=== PATIENT | female | born 1955 | race Caucasian/White ===

== ENCOUNTER 2020-10-18 06:15 | Inpatient (IN) | payer MEDICARE ==
[2020-10-18] MEDS ORDERED: SODIUM CHLORIDE 0.9% 1,000 ML IV STA (06:33)
--- NOTE | 2020-10-18 06:44 | ED ---
General Adult HPI - General Source: patient, EMS, RN notes reviewed Mode of arrival: EMS Limitations: no limitations <Luther Benito - Last Filed: 10/18/20 08:50> <Radha Barbosa - Last Filed: 10/20/20 23:19> - General Chief complaint: Extremity Problem,Nontraumatic Stated complaint: MS exacerbation Time Seen by Provider: 10/18/20 06:17 - History of Present Illness Initial comments: 65-year-old female with a past medical history of migraines, multiple sclerosis, edema of lower legs, hypertension, presents to the emergency room for a chief complaint of weakness. Patient reports that she has had weakness in her lower extremities for 2 days now. States that she can no longer walk. She states this feels like an MS exacerbation. Patient reports that her neurologist tells her to wait 2 days to see if symptoms get better before presenting to the hospital. States that this time they were not so she decided to come in. Patient states she called her primary care provider Dr. Johns who said he would start her on steroids and wanted her to be admitted to the hospital. Patient does get injections Wednesdays and Fridays. Patient has no other complaints at this time including shortness of breath, chest pain, abdominal pain, nausea or vomiting, headache, or visual changes. (Luther Benito) - Related Data Home Medications Medication Instructions Recorded Confirmed Acetaminophen [Tylenol] 650 mg PO Q6H PRN 08/24/15 10/18/20 Amitriptyline HCl [Elavil] 25 mg PO HS 08/24/15 10/18/20 Anastrozole [Arimidex] 1 mg PO DAILY 08/24/15 10/18/20 Baclofen 10 mg PO BID PRN 08/24/15 10/18/20 Calcium Carbonate [Calcium] 600 mg PO DAILY 08/24/15 10/18/20 Cholecalciferol [Vitamin D3 (25 3,000 unit PO DAILY 08/24/15 10/18/20 Mcg = 1000 Iu)] Multivitamins, Thera [Multivitamin 1 tab PO DAILY 08/24/15 10/18/20 (formulary)] Niacin 500 mg PO HS 08/24/15 10/18/20 Atenolol [Tenormin] 100 mg PO BID 10/18/20 10/18/20 Docusate [Colace] 100 mg PO DAILY PRN 10/18/20 10/18/20 Fesoterodine Fumarate [Toviaz] 8 mg PO DAILY 10/18/20 10/18/20 HYDROcodone/APAP 5-325MG [Secor 1 tab PO BID PRN 10/18/20 10/18/20 5-325] Meloxicam [Mobic] 7.5 mg PO DAILY 10/18/20 10/18/20 Potassium Gluconate 99 mg PO DAILY 10/18/20 10/18/20 Rebif 44 Mcg/0.5 Ml 1 dose INJ MOWEFR 10/18/20 10/18/20 Spironolactone [Aldactone] 50 mg PO DAILY 10/18/20 10/18/20 Alendronate Sodium [Fosamax] 70 mg PO WEEKLY 10/20/20 10/20/20 Losartan Potassium [Cozaar] 100 mg PO DAILY 10/20/20 10/20/20 Previous Rx's Medication Instructions Recorded Pregabalin [Lyrica] 50 mg PO BID #60 cap 08/31/15 Allergies Allergy/AdvReac Type Severity Reaction Status Date / Time No Known Allergies Allergy Verified 10/18/20 09:32 Review of Systems ROS Other: All systems not noted in ROS Statement are negative. <Luther Benito P - Last Filed: 10/18/20 08:50> ROS Other: All systems not noted in ROS Statement are negative. <Radha Barbosa - Last Filed: 10/20/20 23:19> ROS Statement: Those systems with pertinent positive or pertinent negative responses have been documented in the HPI. Past Medical History Past Medical History: Cancer, Hypertension, Musculoskeletal Disorder Additional Past Medical History / Comment(s): hx migraines, MS, edema lower legs and feet, walker- currently using wheelchair, brace on left arm, bladder urgency-wears briefs, hx breast cancer History of Any Multi-Drug Resistant Organisms: None Reported Past Surgical History: Appendectomy, Breast Surgery Additional Past Surgical History / Comment(s): 6 surgeries for breast cancer(rt lumpectomy/mastectomy/reconstructive), shiraz cataracts, Past Anesthesia/Blood Transfusion Reactions: Motion Sickness Past Psychological History: No Psychological Hx Reported Smoking Status: Never smoker Past Alcohol Use History: None Reported Past Drug Use History: None Reported - Past Family History Father Family Medical History: Cancer Sister(s) Family Medical History: Deep Vein Thrombosis (DVT) <Luther Benito - Last Filed: 10/18/20 08:50> General Exam Limitations: no limitations General appearance: alert, in no apparent distress Head exam: Present: atraumatic, normocephalic, normal inspection Eye exam: Present: normal appearance, PERRL, EOMI. Absent: scleral icterus, conjunctival injection, periorbital swelling ENT exam: Present: normal exam, mucous membranes moist Neck exam: Present: normal inspection, full ROM. Absent: tenderness, meningis mus, lymphadenopathy Respiratory exam: Present: normal lung sounds bilaterally. Absent: respiratory distress, wheezes, rales, rhonchi, stridor Cardiovascular Exam: Present: regular rate, normal rhythm, normal heart sounds. Absent: systolic murmur, diastolic murmur, rubs, gallop, clicks GI/Abdominal exam: Present: soft, normal bowel sounds. Absent: distended, tenderness, guarding, rebound, rigid <Luther Benito - Last Filed: 10/18/20 08:50> - General Exam Comments Initial Comments: Bilateral lower extremity: Patient able to move toes and slightly flexed knees. Sensation intact. Capillary refill less than 2 seconds, DP pulse 2+ bilat. Patient does have mild edema on the BLE. skin exam normal. (Luther Benito) Course Vital Signs 10/18/20 10/18/20 10/18/20 06:22 07:24 08:44 Temperature 98.6 F 98.7 F Pulse Rate 65 66 64 Respiratory 20 20 18 Rate Blood Pressure 152/102 136/101 115/76 O2 Sat by Pulse 100 99 99 Oximetry Medical Decision Making - Lab Data Result diagrams: 10/18/20 07:08 10/18/20 07:08 <Luther Benito - Last Filed: 10/18/20 08:50> - Lab Data Result diagrams: 10/20/20 05:54 10/20/20 05:54 <Radha Barbosa - Last Filed: 10/20/20 23:19> - Medical Decision Making Pt presents to the emergency room by EMS for weakness of the lower extremities. Patient has a history of relapsing remitting MS. States this feels like an exacerbation 2 days. Patient will appearing. However she does have weakness of the bilateral lower extremities. Neurovascular status intact bilateral lower extremities. CBC CMP obtained. Mild dehydration however no leukocytosis, no evidence of infection. Urinalysis is negative. Covid negative. I discussed this case with Dr. Dill, neurology. Recommends 1000 mg Solu-Medrol given over 1.[address] Barbosa discussed this case with Dr. Johns, does accept admission, recommends neurology consultation. (Luther Benito) I was available for consultation in the emergency department. The history and physical exam were done by the midlevel provider. I was consulted for this patients care. I reviewed the case with the midlevel provider and based on their presentation of the patient, I agree with the assessment, medical decision making and plan of care as documented. Chart was dictated using [employer] dictation software. Attempts were made to correct any dictation errors however some typographical errors may persist. (Radha Barbosa) - Lab Data Lab Results 10/18/20 10/18/20 10/18/20 Range/Units 07:08 07:08 07:08 WBC 8.1 (3.8-10.6) k/uL RBC 4.70 (3.80-5.40) m/uL Hgb 14.7 (11.4-16.0) gm/dL Hct 44.0 (34.0-46.0) % MCV 93.7 (80.0-100.0) fL MCH 31.2 (25.0-35.0) pg MCHC 33.3 (31.0-37.0) g/dL RDW 13.5 (11.5-15.5) % Plt Count 203 (150-450) k/uL MPV 7.8 Immature Gran % (Auto) % Absolute Nucleated RBC (0.00-0.00) X 10*3/uL Neutrophils % 68 % Lymphocytes % 23 % Monocytes % 7 % Eosinophils % 1 % Basophils % 1 % Immature Gran # (0.00-0.04) X 10*3/uL Neutrophils # 5.5 (1.3-7.7) k/uL Lymphocytes # 1.8 (1.0-4.8) k/uL Monocytes # 0.6 (0-1.0) k/uL Eosinophils # 0.1 (0-0.7) k/uL Basophils # 0.1 (0-0.2) k/uL NRBC/100 WBC Diff (0.0-0.0) /100 WBCS Sodium 134 L (137-145) mmol/L Potassium 5.3 H (3.5-5.1) mmol/L Chloride 97 L (98-107) mmol/L Carbon Dioxide 24 (22-30) mmol/L Anion Gap 13 mmol/L BUN 32 H (7-17) mg/dL Creatinine 1.13 H (0.52-1.04) mg/dL Est GFR (CKD-EPI)AfAm 60 (>60 ml/min/1.73 sqM) Est GFR (CKD-EPI)NonAf 52 (>60 ml/min/1.73 sqM) BUN/Creatinine Ratio (12.00-20.00) Ratio Glucose 92 (74-99) mg/dL Estimated Ave Glu mg/dL Hemoglobin A1c (4.0-6.0) % Plasma Lactic Acid Evan (0.7-2.0) mmol/L Calcium 10.4 H (8.4-10.2) mg/dL Magnesium 1.8 (1.6-2.3) mg/dL Total Bilirubin 0.7 (0.2-1.3) mg/dL AST 26 (14-36) U/L ALT 21 (4-34) U/L Alkaline Phosphatase 87 (38-126) U/L Total Protein 8.0 (6.3-8.2) g/dL Albumin 4.9 (3.5-5.0) g/dL Globulin (1.6-3.3) g/dL Albumin/Globulin Ratio (1.60-3.17) g/dL Triglycerides (0.0-149.0) mg/dL Cholesterol (0-200) mg/dL LDL Cholesterol, Calc (0.0-131.0) mg/dL VLDL Cholesterol, Calc (5.00-40.00) mg/dL HDL Cholesterol (40.0-60.0) mg/dL Cholesterol/HDL Ratio Vitamin B12 (200.0-944.0) pg/mL Vitamin D 25-Hydroxy (30.0-100.0) ng/mL TSH (0.350-5.500) uIU/mL Urine Color Light Yellow Urine Appearance Clear (Clear) Urine pH 5.5 (5.0-8.0) Ur Specific [place] 1.007 (1.001-1.035) Urine Protein Negative (Negative) Urine Glucose (UA) Negative (Negative) Urine Ketones Negative (Negative) Urine Blood Negative (Negative) Urine Nitrite Negative (Negative) Urine Bilirubin Negative (Negative) Urine Urobilinogen <2.0 (<2.0) mg/dL Ur Leukocyte Esterase Negative (Negative) Coronavirus (PCR) (Not Detectd) 10/18/20 10/18/20 10/18/20 Range/Units 07:08 07:08 07:08 WBC (3.8-10.6) k/uL RBC (3.80-5.40) m/uL Hgb (11.4-16.0) gm/dL Hct (34.0-46.0) % MCV (80.0-100.0) fL MCH (25.0-35.0) pg MCHC (31.0-37.0) g/dL RDW (11.5-15.5) % Plt Count (150-450) k/uL MPV Immature Gran % (Auto) % Absolute Nucleated RBC (0.00-0.00) X 10*3/uL Neutrophils % % Lymphocytes % % Monocytes % % Eosinophils % % Basophils % % Immature Gran # (0.00-0.04) X 10*3/uL Neutrophils # (1.3-7.7) k/uL Lymphocytes # (1.0-4.8) k/uL Monocytes # (0-1.0) k/uL Eosinophils # (0-0.7) k/uL Basophils # (0-0.2) k/uL NRBC/100 WBC Diff (0.0-0.0) /100 WBCS Sodium (137-145) mmol/L Potassium (3.5-5.1) mmol/L Chloride (98-107) mmol/L Carbon Dioxide (22-30) mmol/L Anion Gap mmol/L BUN (7-17) mg/dL Creatinine (0.52-1.04) mg/dL Est GFR (CKD-EPI)AfAm (>60 ml/min/1.73 sqM) Est GFR (CKD-EPI)NonAf (>60 ml/min/1.73 sqM) BUN/Creatinine Ratio (12.00-20.00) Ratio Glucose (74-99) mg/dL Estimated Ave Glu mg/dL 114 Hemoglobin A1c 5.6 (4.0-6.0) % Plasma Lactic Acid Evan 1.7 (0.7-2.0) mmol/L Calcium (8.4-10.2) mg/dL Magnesium (1.6-2.3) mg/dL Total Bilirubin (0.2-1.3) mg/dL AST (14-36) U/L ALT (4-34) U/L Alkaline Phosphatase (38-126) U/L Total Protein (6.3-8.2) g/dL Albumin (3.5-5.0) g/dL Globulin (1.6-3.3) g/dL Albumin/Globulin Ratio (1.60-3.17) g/dL Triglycerides (0.0-149.0) mg/dL Cholesterol (0-200) mg/dL LDL Cholesterol, Calc (0.0-131.0) mg/dL VLDL Cholesterol, Calc (5.00-40.00) mg/dL HDL Cholesterol (40.0-60.0) mg/dL Cholesterol/HDL Ratio Vitamin B12 (200.0-944.0) pg/mL Vitamin D 25-Hydroxy (30.0-100.0) ng/mL TSH (0.350-5.500) uIU/mL Urine Color Urine Appearance (Clear) Urine pH (5.0-8.0) Ur Specific [place] (1.001-1.035) Urine Protein (Negative) Urine Glucose (UA) (Negative) Urine Ketones (Negative) Urine Blood (Negative) Urine Nitrite (Negative) Urine Bilirubin (Negative) Urine Urobilinogen (<2.0) mg/dL Ur Leukocyte Esterase (Negative) Coronavirus (PCR) Not Detected (Not Detectd) 10/18/20 10/19/20 10/19/20 Range/Units 07:08 06:04 06:04 WBC 7.46 (3.8-10.6) k/uL RBC 3.77 L (3.80-5.40) m/uL Hgb 11.5 L (11.4-16.0) gm/dL Hct 35.8 L (34.0-46.0) % MCV 95.0 (80.0-100.0) fL MCH 30.5 (25.0-35.0) pg MCHC 32.1 (31.0-37.0) g/dL RDW 13.9 (11.5-15.5) % Plt Count 158 (150-450) k/uL MPV 11.1 Immature Gran % (Auto) 0.4 % Absolute Nucleated RBC 0 (0.00-0.00) X 10*3/uL Neutrophils % 83.9 % Lymphocytes % 14.1 % Monocytes % 1.6 % Eosinophils % 0 % Basophils % 0 % Immature Gran # 0.03 (0.00-0.04) X 10*3/uL Neutrophils # 6.26 (1.3-7.7) k/uL Lymphocytes # 1.05 (1.0-4.8) k/uL Monocytes # 0.12 L (0-1.0) k/uL Eosinophils # 0 L (0-0.7) k/uL Basophils # 0 (0-0.2) k/uL NRBC/100 WBC Diff 0 (0.0-0.0) /100 WBCS Sodium 135 (137-145) mmol/L Potassium 4.2 (3.5-5.1) mmol/L Chloride 105 (98-107) mmol/L Carbon Dioxide 18.7 L (22-30) mmol/L Anion Gap 11.30 mmol/L BUN 27.0 (7-17) mg/dL Creatinine 1.0 (0.52-1.04) mg/dL Est GFR (CKD-EPI)AfAm 69.4 (>60 ml/min/1.73 sqM) Est GFR (CKD-EPI)NonAf 59.9 L (>60 ml/min/1.73 sqM) BUN/Creatinine Ratio 27.00 H (12.00-20.00) Ratio Glucose 135 H (74-99) mg/dL Estimated Ave Glu mg/dL Hemoglobin A1c (4.0-6.0) % Plasma Lactic Acid Evan (0.7-2.0) mmol/L Calcium 9.1 (8.4-10.2) mg/dL Magnesium (1.6-2.3) mg/dL Total Bilirubin 0.4 (0.2-1.3) mg/dL AST 16 (14-36) U/L ALT 18 (4-34) U/L Alkaline Phosphatase 67 (38-126) U/L Total Protein 5.8 L (6.3-8.2) g/dL Albumin 3.90 (3.5-5.0) g/dL Globulin 1.9 (1.6-3.3) g/dL Albumin/Globulin Ratio 2.05 (1.60-3.17) g/dL Triglycerides 148.0 (0.0-149.0) mg/dL Cholesterol 203 H (0-200) mg/dL LDL Cholesterol, Calc 115.4 (0.0-131.0) mg/dL VLDL Cholesterol, Calc 29.60 (5.00-40.00) mg/dL HDL Cholesterol 58.0 (40.0-60.0) mg/dL Cholesterol/HDL Ratio 3.50 Vitamin B12 945.0 H (200.0-944.0) pg/mL Vitamin D 25-Hydroxy 62.9 (30.0-100.0) ng/mL TSH 5.490 (0.350-5.500) uIU/mL Urine Color Urine Appearance (Clear) Urine pH (5.0-8.0) Ur Specific [place] (1.001-1.035) Urine Protein (Negative) Urine Glucose (UA) (Negative) Urine Ketones (Negative) Urine Blood (Negative) Urine Nitrite (Negative) Urine Bilirubin (Negative) Urine Urobilinogen (<2.0) mg/dL Ur Leukocyte Esterase (Negative) Coronavirus (PCR) (Not Detectd) Disposition Time of Disposition: 08:50 <Luther Benito P - Last Filed: 10/18/20 08:50> <Radha Barbosa - Last Filed: 10/20/20 23:19> Clinical Impression: Multiple sclerosis, Weakness Disposition: ADMITTED IP TO THIS HOSP
[2020-10-18 07:32] LABS: Basophils # (A) 0.1 k/uL (0-0.2); Basophils % (A) 1 %; Eosinophils # (A) 0.1 k/uL (0-0.7); Eosinophils % (A) 1 %; HGB 14.7 gm/dL (11.4-16.0); Lymphocytes # (A) 1.8 k/uL (1.0-4.8); Lymphocytes % (A) 23 %; MCH 31.2 pg (25.0-35.0); MCHC 33.3 g/dL (31.0-37.0); MCV 93.7 fL (80.0-100.0); Mean Platelet Volume 7.8; Monocytes # (A) 0.6 k/uL (0-1.0); Monocytes % (A) 7 %; Neutrophils # (A) 5.5 k/uL (1.3-7.7); Neutrophils % (A) 68 %; Platelet Count 203 k/uL (150-450); RDW 13.5 % (11.5-15.5); WBC 8.1 k/uL (3.8-10.6)
[2020-10-18 07:49] LABS: Albumin 4.9 g/dL (3.5-5.0); Calcium 10.4 mg/dL (8.4-10.2); Magnesium 1.8 mg/dL (1.6-2.3); Potassium 5.3 mmol/L (3.5-5.1); Total Bilirubin 0.7 mg/dL (0.2-1.3)
[2020-10-18] MEDS ORDERED: NALOXONE 0.4 MG/ML 1 ML VIAL IV PRN (08:17)
[2020-10-18 08:30] LABS: Appearance,Urine Clear (Clear); Bilirubin,Urine Negative (Negative); Blood,Urine Negative (Negative); Color,Urine Light Yellow; Glucose,Urine (UA) Negative (Negative); Ketones,Urine Negative (Negative); Leukocyte Esterase,Urine Negative (Negative); Nitrite,Urine Negative (Negative); PH, Urine 5.5 (5.0-8.0); Protein,Urine Negative (Negative); Specific Gravity,Urine 1.007 (1.001-1.035); Urobilinogen,Urine <2.0 mg/dL (<2.0)
[2020-10-18] MEDS ORDERED: methylPREDNISolone SOD SUCCI 125 MG/2 ML VIAL IV SCH (09:34)
[2020-10-18] MEDS ORDERED: PANTOPRAZOLE 40 MG TABLET PO STA (10:08)
[2020-10-18] MEDS: methylPREDNISolone SOD SUCC 1,000 MG in SODIUM CHLORIDE 0.9% 250 ML IVPB SCH (10:23)
[2020-10-18] MEDS: SODIUM CHLORIDE 0.9% 1,000 ML IV SCH ×3 (10:23→20:29)
[2020-10-18] MEDS ORDERED: ACETAMINOPHEN TAB 325 MG TAB PO PRN (10:42)
[2020-10-18] MEDS ORDERED: HYDROcodone/APAP 5-325MG 1 EACH TAB PO PRN (10:42)
[2020-10-18] MEDS ORDERED: BACLOFEN 10 MG TAB PO PRN (10:42)
[2020-10-18] MEDS ORDERED: DOCUSATE 100 MG CAP PO PRN (10:42)
--- NOTE | 2020-10-18 13:58 | HP ---
HISTORY AND PHYSICAL HISTORY OF PRESENT ILLNESS: 65-year-old white female who was admitted to the hospital with MS exacerbation, migraines, edema of her lower legs, hypertension. She is wheelchair bound most days. She can no longer walk normal. She can walk a few feet, but she is mostly in the wheelchair. She came in because her legs were severely weak and unable to move them. She came in for MS flare. She was admitted, Neurology, started on IV high-dose steroids. MEDICATIONS: Home medicines include Tylenol, Elavil 25 at night, Arimidex 1 mg daily, Tenormin 50 b.i.d., baclofen 10 b.i.d., calcium 600 daily, vitamin D3 5000 units daily, Voltaren 50 b.i.d., Lasix 20 daily, multivitamin daily. Niacin 500 daily, Rebif injector Monday, Monday, Monday. ALLERGIES: No known drug allergies. REVIEW OF SYMPTOMS: 14-point review of systems otherwise negative. PAST MEDICAL HISTORY: History of breast cancer, hypertension, musculoskeletal disorder, migraines and MS. SURGERIES: Appendectomy, breast surgery, 6 surgeries for breast cancer, bilateral cataracts. SOCIAL HISTORY: No smoking, no alcohol and no drugs. FAMILY HISTORY: Father cancer. Sister DVT. PHYSICAL EXAM: PSYCH: Fair mood and affect. NEUROLOGIC: Cranial nerves are intact. MUSCULOSKELETAL exam: She has decreased motion of her legs. Mild edema in both bilateral legs. Capillary refill and pulses are intact. Sensation intact and she is able to move toes and slightly flex her knees. LUNGS: Clear. CARDIOVASCULAR: S1, S2. GI: Distended due to obesity. NECK: Supple. No mass. HEENT: Pupils equal, round, reactive. She wears glasses. VITAL SIGNS: Temp 98.6, blood pressure is 115 to 150s over 70s to 100, respiratory 18- 20, pulse 60s. ASSESSMENT: 1. Acute MS exacerbation. She has history of MS for multiple years on Rebif at home. 2. Covid negative. Urinalysis is negative. No signs of infection. 3. Mild dehydration. 4. Hyperkalemia. 5. Hyponatremia. 6. BUN 32, creatinine 1.13. Prerenal renal azotemia. Continue fluid rehydration. Continue with steroids. Continue current treatments. MMODL / IJN: [id number] /
[2020-10-18 17:20] LABS: Chol/HDL Ratio 3.5; LDL Cholesterol,Calculated 115.4 mg/dL (0.0-131.0); VLDL Calculation 29.6 mg/dL (5.00-40.00)
--- NOTE | 2020-10-18 19:56 | P.CNNES ---
History of Present Illness Consult date: 10/18/20 History of Present Illness: The patient is a 65-year-old, left-handed, female who is seen in neurologic consultation on October 18, 2020, via teleneurology. The patient is being seen because of exacerbation of multiple sclerosis. Patient reports she was diagnosed with MS in 1997. Her last flareup was 6 years ago. She takes Rebif as a preventative medication. The patient came into the hospital because of weakness. She says that initially yesterday, she was able to stand but she had no balance. Short time later in the day her legs became very weak. She said she was unable to lift them or move them. The patient is normally able to ambulate proximally 20 steps at a time. She uses a walker in her home. When she is out of the home, she uses a wheelc hair. The patient has weakness in both of her legs however, the right leg is weaker than the left. Patient reports having a foot drop on the right and uses a Walk Aide. The patient denies any other symptoms. There is no numbness or tingling of her lower extremities. There is no weakness or paresthesias involving her upper extremities. The patient denies headache and changes in vision. The patient denies any indication of illness. She has had no fever, chills, dysuria or frequency. Past Medical History Past Medical History: Cancer, Hypertension, Musculoskeletal Disorder Additional Past Medical History / Comment(s): hx migraines, MS, edema lower legs and feet, walker- currently using wheelchair, brace on left arm, bladder urgency-wears briefs, hx breast cancer History of Any Multi-Drug Resistant Organisms: None Reported Past Surgical History: Appendectomy, Breast Surgery Additional Past Surgical History / Comment(s): 6 surgeries for breast cancer(rt lumpectomy/mastectomy/reconstructive), shiraz cataracts, Past Anesthesia/Blood Transfusion Reactions: Motion Sickness Past Psychological History: No Psychological Hx Reported Smoking Status: Never smoker Past Alcohol Use History: None Reported Additional Past Alcohol Use History / Comment(s): quit smoking 2001 Past Drug Use History: None Reported - Past Family History Father Family Medical History: Cancer Sister(s) Family Medical History: Deep Vein Thrombosis (DVT) Medications and Allergies Home Medications Medication Instructions Recorded Confirmed Type Acetaminophen [Tylenol] 650 mg PO Q6H PRN 08/24/15 10/18/20 History Amitriptyline HCl [Elavil] 25 mg PO HS 08/24/15 10/18/20 History Anastrozole [Arimidex] 1 mg PO DAILY 08/24/15 10/18/20 History Baclofen 10 mg PO BID PRN 08/24/15 10/18/20 History Calcium Carbonate [Calcium] 600 mg PO DAILY 08/24/15 10/18/20 History Cholecalciferol [Vitamin D3 (25 3,000 unit PO DAILY 08/24/15 10/18/20 History Mcg = 1000 Iu)] Multivitamins, Thera [Multivitamin 1 tab PO DAILY 08/24/15 10/18/20 History (formulary)] Niacin 500 mg PO HS 08/24/15 10/18/20 History Pregabalin [Lyrica] 50 mg PO BID #60 cap 08/31/15 10/18/20 Rx Alendronate Sodium [Fosamax] 70 mg PO MO 10/18/20 10/18/20 History Atenolol [Tenormin] 100 mg PO BID 10/18/20 10/18/20 History Docusate [Colace] 100 mg PO DAILY PRN 10/18/20 10/18/20 History Fesoterodine Fumarate [Toviaz] 8 mg PO DAILY 10/18/20 10/18/20 History HYDROcodone/APAP 5-325MG [[place] 1 tab PO BID PRN 10/18/20 10/18/20 History 5-325] Losartan/Hydrochlorothiazide 1 tab PO DAILY 10/18/20 10/18/20 History [Losartan-Hctz 100-12.5 mg Tab] Meloxicam [Mobic] 7.5 mg PO DAILY 10/18/20 10/18/20 History Potassium Gluconate 99 mg PO DAILY 10/18/20 10/18/20 History Rebif 44 Mcg/0.5 Ml 1 dose INJ MOWEFR 10/18/20 10/18/20 History Spironolactone [Aldactone] 50 mg PO DAILY 10/18/20 10/18/20 History Allergies Allergy/AdvReac Type Severity Reaction Status Date / Time No Known Allergies Allergy Verified 10/18/20 09:32 Physical Examination - Vital Signs Vital Signs: Vital Signs Temp Pulse Pulse Resp BP BP Pulse Ox 10/18/20 10:32 98.4 F 68 16 149/82 100 10/18/20 08:44 98.7 F 64 18 115/76 99 10/18/20 07:24 66 20 136/101 99 10/18/20 06:22 98.6 F 65 20 152/102 100 Intake and Output 10/17/20 10/18/20 10/18/20 21:59 06:59 14:59 Other: Weight 90.718 kg Gen.: The patient is reclining in the bed. She is well-nourished, well- developed and in no acute distress. HEENT: Head is atraumatic, normocephalic. Fundus not visualized. There is no scleral icterus. Mucous membranes are moist. Neck: Supple without carotid bruits Heart: Regular rate and rhythm Lungs: Clear to auscultation Extremities: There is marked edema of the bilateral lower extremities, right greater than left. There is erythema and warmth to touch of the right foot. Neurological examination Mental status: The patient is awake, alert and oriented 3. Her speech is fluent. Cranial nerves: Pupils are equal at 5 mm and reactive. Visual paredes are full to confrontation. Extraocular movements are intact. There is no nystagmus. Facial sensation is intact. There is no facial asymmetry. Hearing is grossly i ntact. Uvula and palate are midline. Shoulder shrug is symmetric. Tongue protrudes midline. Motor: Upper extremity strength is 5/5. Right hip flexor, plantar and dorsiflexors 0/5. The patient is able to wiggle the toes of her right foot. Left quadriceps 3/5. Hip flexor 1/5. Plantar and dorsiflexors 3-/5. Sensation: Grossly intact to light touch throughout. There is no extinction with double simultaneous stimulation. Coordination: [id number] testing is intact bilaterally. Deep tendon reflexes: 1+/4+ throughout with the exception of the left brachial radialis and patellar reflexes at 2+/4+. Achilles reflexes are not assessed Results - Laboratory Findings CBC and BMP: 10/18/20 07:08 10/18/20 07:08 Abnormal Lab Findings: Abnormal Labs 10/18/20 07:08 Sodium 134 L Potassium 5.3 H Chloride 97 L BUN 32 H Creatinine 1.13 H Calcium 10.4 H Assessment and Plan Assessment: 1. Exacerbation of multiple sclerosis 2. Swelling, erythema and warmth of the right lower extremity Plan: 1. IV Solu-Medrol 1000 mg daily 3 days 2. Physical therapy consultation Time with Patient: Greater than 30 (spent 40 minutes with patient via teleneurology)
[2020-10-18] MEDS: atenoloL 50 MG TAB PO SCH (20:23)
[2020-10-18] MEDS: PREGABALIN 50 MG CAP PO SCH (20:23)
[2020-10-18] MEDS: NIACIN TR 500 MG CAPLET PO SCH (20:23)
[2020-10-18] MEDS: AMITRIPTYLINE HCL 25 MG TAB PO SCH (20:23)
[2020-10-18] MEDS: TROSPIUM CHLORIDE 20 MG TABLET PO SCH (20:23)
[2020-10-18 21:36] LABS: Hemoglobin A1C 5.6 % (4.0-6.0)
[2020-10-19] MEDS: hydroCHLOROthiazide 12.5 MG CAP PO SCH (07:30)
[2020-10-19] MEDS: LOSARTAN 50 MG TAB PO SCH (07:30)
[2020-10-19] MEDS: MULTIVITAMINS, THERA 1 EACH TAB PO SCH (07:30)
[2020-10-19] MEDS: PREGABALIN 50 MG CAP PO SCH ×2 (07:30→20:17)
[2020-10-19] MEDS: POTASSIUM CHLORIDE ER 10 MEQ TAB.ER.PRT PO SCH (07:31)
[2020-10-19] MEDS: MELOXICAM 7.5 MG TAB PO SCH (07:31)
[2020-10-19] MEDS: CHOLECALCIFEROL 25 MCG (1000 IU) TABLET PO SCH (07:32)
[2020-10-19] MEDS: TROSPIUM CHLORIDE 20 MG TABLET PO SCH ×2 (07:32→20:16)
[2020-10-19] MEDS: atenoloL 50 MG TAB PO SCH ×2 (07:32→20:17)
[2020-10-19] MEDS: ANASTROZOLE 1 MG TAB PO SCH (07:33)
[2020-10-19] MEDS: CALCIUM CARBONATE 500 MG CHEWABLE PO SCH (07:36)
[2020-10-19] MEDS: methylPREDNISolone SOD SUCC 1,000 MG in SODIUM CHLORIDE 0.9% 250 ML IVPB SCH (07:36)
[2020-10-19] MEDS: BACLOFEN 10 MG TAB PO SCH ×2 (07:42→20:17)
[2020-10-19] MEDS ORDERED: SPIRONOLACTONE 25 MG TAB PO SCH (09:00)
[2020-10-19 09:44] LABS: Basophils # (A) 0 X 10*3/uL (0.00-0.10); Basophils % (A) 0 %; Eosinophils # (A) 0 X 10*3/uL (0.04-0.35); Eosinophils % (A) 0 %; HCT 35.8 % (37.2-46.3); HGB 11.5 g/dL (12.0-15.0); Lymphocytes # (A) 1.05 X 10*3/uL (0.90-5.00); Lymphocytes % (A) 14.1 %; MCH 30.5 pg (27.0-32.0); MCHC 32.1 g/dL (32.0-37.0); Mean Platelet Volume 11.1 fL (9.5-12.2); Monocytes # (A) 0.12 X 10*3/uL (0.20-1.00); Monocytes % (A) 1.6 %; Neutrophils # (A) 6.26 X 10*3/uL (1.80-7.70); Neutrophils % (A) 83.9 %; Platelet Count 158 X 10*3/uL (140-440); RBC 3.77 X 10*6/uL (4.10-5.20); RDW 13.9 % (11.5-14.5); WBC 7.46 X 10*3/uL (4.50-10.00)
[2020-10-19 09:51] LABS: African American GFR (CKD) 69.4 (60.0-200.0); Albumin 3.9 g/dL (3.80-4.90); Albumin/Globulin Ratio 2.05 (1.60-3.17); Anion Gap 11.3 mmol/L (4.00-12.00); Calcium 9.1 mg/dL (8.7-10.3); Carbon Dioxide 18.7 mmol/L (21.6-31.8); Globulin 1.9 g/dL (1.6-3.3); Non-African American GFR(CKD) 59.9 (60.0-200.0); Potassium 4.2 mmol/L (3.5-5.5); Total Bilirubin 0.4 mg/dL (0.2-1.2); Total Protein 5.8 g/dL (6.2-8.2)
[2020-10-19] MEDS: SODIUM CHLORIDE 0.9% 1,000 ML IV SCH (17:19)
--- NOTE | 2020-10-19 18:33 | PN ---
PROGRESS NOTE This is a 65-year-old white female who was admitted with MS exacerbation due to inability for her legs to move. She is on day 2 of high-dose prednisone. CARDIOVASCULAR: S1, S2. LUNGS: Clear. GI: Soft. Extremities show limited movement of the legs. ASSESSMENT: 1. Exacerbation of multiple sclerosis. 2. Swelling, erythema and warmth of the right lower extremity. IV Solu-Medrol 1000 mg daily for 3 days. Physical therapy, PT/OT. 1. Prerenal renal insufficiency. 2. Hyponatremia. 3. Hyperkalemia. Rehydrate. Prognosis guarded. Continue current treatment. MMODL / IJN: [id number] /
[2020-10-19] MEDS: AMITRIPTYLINE HCL 25 MG TAB PO SCH (20:16)
[2020-10-19] MEDS: NIACIN TR 500 MG CAPLET PO SCH (20:16)
[2020-10-19] MEDS: SPIRONOLACTONE 25 MG TAB PO SCH (20:36)
[2020-10-20] MEDS: SODIUM CHLORIDE 0.9% 1,000 ML IV SCH ×3 (01:35→16:36)
[2020-10-20 09:13] LABS: Basophils # (A) 0.01 X 10*3/uL (0.00-0.10); Basophils % (A) 0.1 %; Eosinophils # (A) 0 X 10*3/uL (0.04-0.35); Eosinophils % (A) 0 %; HCT 34.5 % (37.2-46.3); HGB 11.2 g/dL (12.0-15.0); Lymphocytes # (A) 1.12 X 10*3/uL (0.90-5.00); Lymphocytes % (A) 8.1 %; MCH 31.3 pg (27.0-32.0); MCHC 32.5 g/dL (32.0-37.0); MCV 96.4 fL (80.0-97.0); Mean Platelet Volume 11.3 fL (9.5-12.2); Monocytes # (A) 0.36 X 10*3/uL (0.20-1.00); Monocytes % (A) 2.6 %; Neutrophils # (A) 12.18 X 10*3/uL (1.80-7.70); Neutrophils % (A) 88.3 %; Platelet Count 166 X 10*3/uL (140-440); RBC 3.58 X 10*6/uL (4.10-5.20); RDW 14.2 % (11.5-14.5); WBC 13.79 X 10*3/uL (4.50-10.00)
[2020-10-20] MEDS: atenoloL 50 MG TAB PO SCH ×2 (09:35→19:34)
[2020-10-20] MEDS: SPIRONOLACTONE 25 MG TAB PO SCH ×2 (09:35→19:34)
[2020-10-20] MEDS: TROSPIUM CHLORIDE 20 MG TABLET PO SCH ×2 (09:35→19:35)
[2020-10-20] MEDS: PREGABALIN 50 MG CAP PO SCH ×2 (09:35→19:34)
[2020-10-20] MEDS: LOSARTAN 50 MG TAB PO SCH (09:35)
[2020-10-20] MEDS: MELOXICAM 7.5 MG TAB PO SCH (09:35)
[2020-10-20] MEDS: MULTIVITAMINS, THERA 1 EACH TAB PO SCH (09:35)
[2020-10-20] MEDS: ANASTROZOLE 1 MG TAB PO SCH (09:35)
[2020-10-20] MEDS: BACLOFEN 10 MG TAB PO SCH ×2 (09:35→19:34)
[2020-10-20] MEDS: POTASSIUM CHLORIDE ER 10 MEQ TAB.ER.PRT PO SCH (09:35)
[2020-10-20] MEDS: CHOLECALCIFEROL 25 MCG (1000 IU) TABLET PO SCH (09:36)
[2020-10-20] MEDS: hydroCHLOROthiazide 12.5 MG CAP PO SCH (09:36)
[2020-10-20] MEDS: CALCIUM CARBONATE 500 MG CHEWABLE PO SCH (09:37)
[2020-10-20] MEDS: methylPREDNISolone SOD SUCC 1,000 MG in SODIUM CHLORIDE 0.9% 250 ML IVPB SCH (09:43)
[2020-10-20 10:36] LABS: African American GFR (CKD) 69.4 (60.0-200.0); Albumin 3.8 g/dL (3.80-4.90); Albumin/Globulin Ratio 2.24 (1.60-3.17); Anion Gap 8.5 mmol/L (4.00-12.00); Calcium 8.3 mg/dL (8.7-10.3); Carbon Dioxide 20.5 mmol/L (21.6-31.8); Globulin 1.7 g/dL (1.6-3.3); Non-African American GFR(CKD) 59.9 (60.0-200.0); Potassium 4.2 mmol/L (3.5-5.5); Total Bilirubin 0.4 mg/dL (0.3-1.2); Total Protein 5.5 g/dL (6.2-8.2)
[2020-10-20] MEDS: NIACIN TR 500 MG CAPLET PO SCH (19:34)
[2020-10-20] MEDS: AMITRIPTYLINE HCL 25 MG TAB PO SCH (19:35)
--- NOTE | 2020-10-20 19:42 | PN ---
PROGRESS NOTE This is a 65-year-old white female with MS flare. She is back to her baseline, she says, as far as walking to the chair and back compared to her baseline. She has had 3 days off high IV steroids. White count is a little elevated today secondary to steroids at 13.7. Hemoglobin is 11.2. Creatinine is 1.0, BUN is 28. Cholesterol is a little high at 203 with LDL of 115. Vitamin B12 is high. TSH is a little bit high, also. ASSESSMENT: 1. Multiple sclerosis flare, improving. Continue with steroids. Possibly send her home on a steroid taper tomorrow. 2. Hypercholesterolemia. 3. Muscle spasms. 4. History of breast cancer. 5. Osteoporosis. 6. Hypertension. 7. Hypothyroidism. Continue with current treatments. Possible discharge home tomorrow on a steroid taper. MMODL / IJN: [id number] /
[2020-10-21] MEDS: SODIUM CHLORIDE 0.9% 1,000 ML IV SCH ×2 (05:48→13:37)
[2020-10-21] MEDS ORDERED: ALENDRONATE SODIUM 70 MG PO SCH (07:00)
[2020-10-21 07:25] VITALS: RESP 16
[2020-10-21] MEDS: LOSARTAN 50 MG TAB PO SCH (10:12)
[2020-10-21] MEDS: atenoloL 50 MG TAB PO SCH (10:13)
[2020-10-21] MEDS: CHOLECALCIFEROL 25 MCG (1000 IU) TABLET PO SCH (10:13)
[2020-10-21] MEDS: CALCIUM CARBONATE 500 MG CHEWABLE PO SCH (10:14)
[2020-10-21] MEDS: BACLOFEN 10 MG TAB PO SCH (10:14)
[2020-10-21] MEDS: MELOXICAM 7.5 MG TAB PO SCH (10:14)
[2020-10-21] MEDS: methylPREDNISolone SOD SUCC 1,000 MG in SODIUM CHLORIDE 0.9% 250 ML IVPB SCH (10:16)
[2020-10-21] MEDS: ANASTROZOLE 1 MG TAB PO SCH (10:17)
[2020-10-21] MEDS: TROSPIUM CHLORIDE 20 MG TABLET PO SCH (10:19)
[2020-10-21] MEDS: MULTIVITAMINS, THERA 1 EACH TAB PO SCH (10:32)
[2020-10-21] MEDS: POTASSIUM CHLORIDE ER 10 MEQ TAB.ER.PRT PO SCH (10:33)
[2020-10-21] MEDS: SPIRONOLACTONE 25 MG TAB PO SCH (10:33)
[2020-10-21] MEDS: PREGABALIN 50 MG CAP PO SCH (10:33)
[2020-10-21 13:24] VITALS: BP 155/89; PULSE 70; TEMP 98.8
--- NOTE | 2020-10-21 14:23 | DS ---
DISCHARGE SUMMARY This is a 65-year-old white female was admitted with multiple sclerosis exacerbation. She was started on IV steroid taper for 72 hours of high-dose steroids. She is much improved today. CONDITION: Stable. PROGNOSIS: Guarded. AMBULATE: As tolerated. DIET: Regular. HOME MEDICINES: 1. Multivitamin daily. 2. Calcium 600 mg daily. 3. Vitamin D3, 3000 units daily. 4. Niacin 500 daily. 5. Baclofen 10 b.i.d. 6. Arimidex 1 mg daily. 7. Elavil 25 at bedtime. 8. Tylenol 650 q.6 p.r.n. 9. Lyrica 50 b.i.d. 10.Toviaz 8 mg daily. 11.Aldactone 50 mg daily. 12.Potassium gluconate 99 mg daily. 13.Mobic 7.5 mg daily. 14.Colace 100 mg daily. 15.[place] 5/325 b.i.d. p.r.n. 16.Tenormin 100 b.i.d. 17.Rebif 44 mcg injection Monday, Monday, and Monday. 18.Cozaar 100 mg daily. 19.Fosamax 70 mg weekly. Follow up in office in a week. Condition stable, prognosis guarded, ambulate as tolerated. Continue current treatments. MMODL / IJN: [id number] /
== END 2020-10-21 14:56 | disposition home or self-care (01) | DRG 59 ==
LOC: EC 06:15 → 4SSUR 08:22 → OBSVTOIN 10-19 11:28
PROVIDERS: ADMIT Family Medicine; ATTEND Family Medicine
DX: G35 Multiple sclerosis (principal); E87.1 Hypo-osmolality and hyponatremia; Z20.822 Contact with and (suspected) exposure to COVID-19; E86.0 Dehydration; E87.5 Hyperkalemia; G43.909 Migraine, unspecified, not intractable, without status migrainosus; I10 Essential (primary) hypertension; E66.9 Obesity, unspecified; N28.9 Disorder of kidney and ureter, unspecified; E78.00 Pure hypercholesterolemia, unspecified; M62.838 Other muscle spasm; M81.0 Age-related osteoporosis without current pathological fracture; E03.9 Hypothyroidism, unspecified; M21.371 Foot drop, right foot; T38.0X5A Adverse effect of glucocorticoids and synthetic analogues, initial encounter; Z68.33 Body mass index [BMI] 33.0-33.9, adult; Z79.811 Long term (current) use of aromatase inhibitors; Z79.1 Long term (current) use of non-steroidal anti-inflammatories (NSAID); Z79.899 Other long term (current) drug therapy; Z79.83 Long term (current) use of bisphosphonates; Z85.3 Personal history of malignant neoplasm of breast; Z90.49 Acquired absence of other specified parts of digestive tract; Z98.82 Breast implant status; Z98.42 Cataract extraction status, left eye; Z98.41 Cataract extraction status, right eye; Z99.3 Dependence on wheelchair; Z87.891 Personal history of nicotine dependence; Z80.9 Family history of malignant neoplasm, unspecified; Z82.49 Family history of ischemic heart disease and other diseases of the circulatory system
CPT/HCPCS: 36415; 80053; 80061; 81003; 82306; 82607; 83036; 83605; 83735; 84436; 84443; 85025; 87635; 96360; 96361; 99285

== ENCOUNTER 2020-11-06 07:49 | Inpatient (IN) | payer MEDICARE ==
--- NOTE | 2020-11-06 08:25 | ED ---
General Adult HPI - General Chief complaint: Weakness Stated complaint: Weakness Time Seen by Provider: 11/06/20 08:00 Source: patient, EMS, RN notes reviewed, old records reviewed Mode of arrival: EMS Limitations: no limitations - History of Present Illness Initial comments: This is a 65-year-old female who presents to the emergency department with a p ast medical history for hypertension and multiple sclerosis. Patient states she had an episode where she had weakness 2 weeks ago was admitted to the hospital. Patient states ever since she left she's been having a very difficult time walking and as of this morning she could not get up and ambulate at all. Patient denies any fever or chills. Patient denies any headache patient denies numbness weakness. Patient denies any lightheadedness or dizziness. Patient denies any chest pain palpitations difficulty breathing shortest breath per patient denies any abdominal pain patient denies any nausea vomiting diarrhea. - Related Data Home Medications Medication Instructions Recorded Confirmed Acetaminophen [Tylenol] 650 mg PO Q6H PRN 08/24/15 11/06/20 Amitriptyline HCl [Elavil] 25 mg PO HS 08/24/15 11/06/20 Anastrozole [Arimidex] 1 mg PO DAILY 08/24/15 11/06/20 Baclofen 10 mg PO BID PRN 08/24/15 11/06/20 Calcium Carbonate [Calcium] 600 mg PO DAILY 08/24/15 11/06/20 Multivitamins, Thera [Multivitamin 1 tab PO DAILY 08/24/15 11/06/20 (formulary)] Niacin 500 mg PO HS 08/24/15 11/06/20 Atenolol [Tenormin] 100 mg PO BID 10/18/20 11/06/20 Docusate [Colace] 100 mg PO DAILY PRN 10/18/20 11/06/20 Fesoterodine Fumarate [Toviaz] 8 mg PO DAILY 10/18/20 11/06/20 HYDROcodone/APAP 5-325MG [[place] 1 tab PO BID PRN 10/18/20 11/06/20 5-325] Meloxicam [Mobic] 7.5 mg PO DAILY 10/18/20 11/06/20 Potassium Gluconate 99 mg PO DAILY 10/18/20 11/06/20 Rebif 44 Mcg/0.5 Ml 44 mcg SQ MOWEFR 10/18/20 11/06/20 Spironolactone [Aldactone] 50 mg PO DAILY 10/18/20 11/06/20 Alendronate Sodium [Fosamax] 70 mg PO MO 10/20/20 11/06/20 Losartan Potassium [Cozaar] 100 mg PO DAILY 10/20/20 11/06/20 Cholecalciferol (Vitamin D3) 75 mcg PO DAILY 11/06/20 11/06/20 [Vitamin D3 (3000 Iu)] Previous Rx's Medication Instructions Recorded Pregabalin [Lyrica] 50 mg PO BID #60 cap 08/31/15 Allergies Allergy/AdvReac Type Severity Reaction Status Date / Time No Known Allergies Allergy Verified 11/06/20 09:57 Review of Systems ROS Statement: Those systems with pertinent positive or pertinent negative responses have been documented in the HPI. ROS Other: All systems not noted in ROS Statement are negative. Past Medical History Past Medical History: Cancer, Hypertension, Musculoskeletal Disorder Additional Past Medical History / Comment(s): hx migraines, MS, edema lower legs and feet, walker- currently using wheelchair, brace on left arm, bladder urgency-wears briefs, hx breast cancer History of Any Multi-Drug Resistant Organisms: None Reported Past Surgical History: Appendectomy, Breast Surgery Additional Past Surgical History / Comment(s): 6 surgeries for breast cancer(rt lumpectomy/mastectomy/reconstructive), shiraz cataracts, Past Anesthesia/Blood Transfusion Reactions: Motion Sickness Past Psychological History: No Psychological Hx Reported Smoking Status: Never smoker Past Alcohol Use History: None Reported Past Drug Use History: None Reported - Past Family History Father Family Medical History: Cancer Sister(s) Family Medical History: Deep Vein Thrombosis (DVT) General Exam - General Exam Comments Initial Comments: GENERAL: Patient is well-developed and well-nourished. Patient is nontoxic and well- hydrated and is in no acute distress. ENT: Neck is soft and supple. No significant lymphadenopathy is noted. Oropharynx is clear. Moist mucous membranes. Neck has full range of motion without eliciting any pain. EYES: The sclera were anicteric and conjunctiva were pink and moist. Extraocular movements were intact and pupils were equal round and reactive to light. Eyelids were unremarkable. PULMONARY: Unlabored respirations. Good breath sounds bilaterally. No audible rales rhonchi or wheezing was noted. CARDIOVASCULAR: There is a regular rate and rhythm without any murmurs gallops or rubs. ABDOMEN: Soft and nontender with normal bowel sounds. No palpable organomegaly was noted. There is no palpable pulsatile mass. SKIN: Skin is clear with no lesions or rashes and otherwise unremarkable. NEUROLOGIC: Patient is alert and oriented x3. Cranial nerves II through XII are grossly intact. Patient has significant weakness in the bilateral legs however she says the right leg she normally can't move only at the hip and today she is unable to move it at the hip. Left leg is also weaker than normal according to the patient. Patient's right leg does not move at the ankle or hip while she has been left leg has movement at the foot only. MUSCULOSKELETAL: Normal extremities with adequate strength and full range of motion. No lower extremity swelling or edema. No calf tenderness. LYMPHATICS: No significant lymphadenopathy is noted PSYCHIATRIC: Normal psychiatric evaluation. Limitations: no limitations Course Vital Signs 11/06/20 08:02 Temperature 98.3 F Pulse Rate 69 Respiratory 18 Rate Blood Pressure 115/74 O2 Sat by Pulse 100 Oximetry Medical Decision Making - Medical Decision Making EKG shows normal sinus rhythm at 67 bpm ND interval 238 QRS is 104 QT interval 398 QTC is 11/09/[address] segment elevation or depression. I spoke with Dr. Johns about admitting the patient admitted the patient wrote admitting orders and consult the neurology - Lab Data Result diagrams: 11/06/20 08:42 11/06/20 08:42 Lab Results 11/06/20 11/06/20 11/06/20 Range/Units 08:42 08:42 08:42 WBC 7.9 (3.8-10.6) k/uL RBC 4.34 (3.80-5.40) m/uL Hgb 14.1 (11.4-16.0) gm/dL Hct 41.2 (34.0-46.0) % MCV 94.9 (80.0-100.0) fL MCH 32.5 (25.0-35.0) pg MCHC 34.3 (31.0-37.0) g/dL RDW 14.3 (11.5-15.5) % Plt Count 126 L (150-450) k/uL MPV 8.0 Neutrophils % 67 % Lymphocytes % 25 % Monocytes % 5 % Eosinophils % 1 % Basophils % 0 % Neutrophils # 5.3 (1.3-7.7) k/uL Lymphocytes # 2.0 (1.0-4.8) k/uL Monocytes # 0.4 (0-1.0) k/uL Eosinophils # 0.1 (0-0.7) k/uL Basophils # 0.0 (0-0.2) k/uL PT 9.6 (9.0-12.0) sec INR 0.9 (<1.2) APTT 19.0 L (22.0-30.0) sec Sodium 131 L (137-145) mmol/L Potassium 5.5 H (3.5-5.1) mmol/L Chloride 98 (98-107) mmol/L Carbon Dioxide 22 (22-30) mmol/L Anion Gap 11 mmol/L BUN 41 H (7-17) mg/dL Creatinine 1.23 H (0.52-1.04) mg/dL Est GFR (CKD-EPI)AfAm 54 (>60 ml/min/1.73 sqM) Est GFR (CKD-EPI)NonAf 47 (>60 ml/min/1.73 sqM) Glucose 91 (74-99) mg/dL Plasma Lactic Acid Evan (0.7-2.0) mmol/L Calcium 9.9 (8.4-10.2) mg/dL Magnesium 2.0 (1.6-2.3) mg/dL Total Bilirubin 0.5 (0.2-1.3) mg/dL AST 25 (14-36) U/L ALT 40 H (4-34) U/L Alkaline Phosphatase 87 (38-126) U/L Troponin I (0.000-0.034) ng/mL Total Protein 6.4 (6.3-8.2) g/dL Albumin 3.9 (3.5-5.0) g/dL Urine Color Urine Appearance (Clear) Urine pH (5.0-8.0) Ur Specific [place] (1.001-1.035) Urine Protein (Negative) Urine Glucose (UA) (Negative) Urine Ketones (Negative) Urine Blood (Negative) Urine Nitrite (Negative) Urine Bilirubin (Negative) Urine Urobilinogen (<2.0) mg/dL Ur Leukocyte Esterase (Negative) 11/06/20 11/06/20 11/06/20 Range/Units 08:42 08:42 10:05 WBC (3.8-10.6) k/uL RBC (3.80-5.40) m/uL Hgb (11.4-16.0) gm/dL Hct (34.0-46.0) % MCV (80.0-100.0) fL MCH (25.0-35.0) pg MCHC (31.0-37.0) g/dL RDW (11.5-15.5) % Plt Count (150-450) k/uL MPV Neutrophils % % Lymphocytes % % Monocytes % % Eosinophils % % Basophils % % Neutrophils # (1.3-7.7) k/uL Lymphocytes # (1.0-4.8) k/uL Monocytes # (0-1.0) k/uL Eosinophils # (0-0.7) k/uL Basophils # (0-0.2) k/uL PT (9.0-12.0) sec INR (<1.2) APTT (22.0-30.0) sec Sodium (137-145) mmol/L Potassium (3.5-5.1) mmol/L Chloride (98-107) mmol/L Carbon Dioxide (22-30) mmol/L Anion Gap mmol/L BUN (7-17) mg/dL Creatinine (0.52-1.04) mg/dL Est GFR (CKD-EPI)AfAm (>60 ml/min/1.73 sqM) Est GFR (CKD-EPI)NonAf (>60 ml/min/1.73 sqM) Glucose (74-99) mg/dL Plasma Lactic Acid Evan 1.2 (0.7-2.0) mmol/L Calcium (8.4-10.2) mg/dL Magnesium (1.6-2.3) mg/dL Total Bilirubin (0.2-1.3) mg/dL AST (14-36) U/L ALT (4-34) U/L Alkaline Phosphatase (38-126) U/L Troponin I <0.012 (0.000-0.034) ng/mL Total Protein (6.3-8.2) g/dL Albumin (3.5-5.0) g/dL Urine Color Yellow Urine Appearance Clear (Clear) Urine pH 5.5 (5.0-8.0) Ur Specific [place] 1.011 (1.001-1.035) Urine Protein Negative (Negative) Urine Glucose (UA) Negative (Negative) Urine Ketones Negative (Negative) Urine Blood Negative (Negative) Urine Nitrite Negative (Negative) Urine Bilirubin Negative (Negative) Urine Urobilinogen <2.0 (<2.0) mg/dL Ur Leukocyte Esterase Negative (Negative) Disposition Clinical Impression: Exacerbation of multiple sclerosis Disposition: ADMITTED IP TO THIS HOSP Referrals: Daniel Johns MD [Primary Care Provider] - 1-2 days Time of Disposition: 11:22
[2020-11-06 08:49] LABS: Basophils % (A) 0 %; Eosinophils # (A) 0.1 k/uL (0-0.7); Eosinophils % (A) 1 %; HCT 41.2 % (34.0-46.0); HGB 14.1 gm/dL (11.4-16.0); Lymphocytes % (A) 25 %; MCH 32.5 pg (25.0-35.0); MCHC 34.3 g/dL (31.0-37.0); MCV 94.9 fL (80.0-100.0); Monocytes # (A) 0.4 k/uL (0-1.0); Monocytes % (A) 5 %; Neutrophils # (A) 5.3 k/uL (1.3-7.7); Neutrophils % (A) 67 %; Platelet Count 126 k/uL (150-450); RBC 4.34 m/uL (3.80-5.40); RDW 14.3 % (11.5-15.5); WBC 7.9 k/uL (3.8-10.6)
[2020-11-06 09:00] LABS: Albumin 3.9 g/dL (3.5-5.0); Calcium 9.9 mg/dL (8.4-10.2); Potassium 5.5 mmol/L (3.5-5.1); Total Bilirubin 0.5 mg/dL (0.2-1.3); Total Protein 6.4 g/dL (6.3-8.2)
[2020-11-06 09:30] LABS: INR 0.9 (<1.2); Prothrombin Time 9.6 sec (9.0-12.0)
[2020-11-06 10:22] LABS: Appearance,Urine Clear (Clear); Bilirubin,Urine Negative (Negative); Blood,Urine Negative (Negative); Color,Urine Yellow; Glucose,Urine (UA) Negative (Negative); Ketones,Urine Negative (Negative); Leukocyte Esterase,Urine Negative (Negative); Nitrite,Urine Negative (Negative); PH, Urine 5.5 (5.0-8.0); Protein,Urine Negative (Negative); Specific Gravity,Urine 1.011 (1.001-1.035); Urobilinogen,Urine <2.0 mg/dL (<2.0)
[2020-11-06] MEDS ORDERED: SODIUM CHLORIDE 0.9% 1,000 ML IV ONE (11:22)
[2020-11-06] MEDS ORDERED: DOCUSATE 100 MG CAP PO PRN (11:48)
[2020-11-06] MEDS ORDERED: ACETAMINOPHEN TAB 325 MG TAB PO PRN (11:48)
[2020-11-06] MEDS ORDERED: BACLOFEN 10 MG TAB PO PRN (11:48)
[2020-11-06] MEDS ORDERED: HYDROcodone/APAP 5-325MG 1 EACH TAB PO PRN (11:48)
[2020-11-06] MEDS ORDERED: REBIF SQ SCH (12:00)
--- NOTE | 2020-11-06 12:19 | P.CNNES ---
History of Present Illness Consult date: 11/06/20 Requesting physician: Gareth Mcduffie Reason for Consult: multiple sclerosis History of Present Illness: This is a 65-year-old left-handed woman with medical history of multiple sclerosis, hypertension, right breast cancer s/p second me in 2010, and had chemotherapy in 2011 who presented to the emergency department on 11/06/2020 because of bilateral lower extremity weakness. According to patient she's been having the bilateral lower exam and weakness for the last 3-4 weeks. She said its entire lower extremity weakness. She denies any new numbness, any weakness upper or lower extremity, any visual disturbance, any difficulty getting her words out. Patient was here about 2 weeks ago and was admitted and was seen by by Dr. Dill (neuro hospitalist) for exacerbation of multiple sclerosis on 10/18/2020. During that visit Dr. Dill recommended IV Solu-Medrol thousand milligrams daily for 3 days as well as physical therapy consultation. The patient after she received that the steroids the 2 weeks ago and she received 3 days of steroids she says minimally she improved. She said she continues to have the extreme swelling in the lower extremity for the last 3-4 weeks. Prior to that she had the last swelling and the she was able to move her extremities more. To what extent she was not able to tell me but she said she was able to move her legs more. She uses a walker or wheelchair to move around and that's been going on for a long period of time. Seems that the patient has been diagnosed with multiple sclerosis in 1997 and that she takes Rebiv as Disease modifying medication for her MS. she said that she's been on Rebiv for years. He said she tried to figure in the past and try to perform off but couldn't tolerate it. She follows-up with Dr. Aneta Barry for her Multiple Sclerosis and last time she was at his office was a month ago and was seen by his Physician psychologist research assistant. Patient is also on baclofen 10 mg 1 tablet twice a day when necessary, Lyrica 50 mg tablet twice a day, meloxicam, [place] 5/325 one tablet twice a day when necessary. Work-up in the hospital consisted of: Initial vital signs blood pressure of 115/74, heart rate of 69, respiratory of 18, temperature of 98.3 Fahrenheit oral and pulse ox of 100% at room air. Her white blood cell is 7.9 which is normal. Initial sodium is 131 which is mildly low. Potassium is 5.5 the which is elevated. That creatinine is 1.23. Urinalysis is negative for urinary tract infection. Past Medical History Past Medical History: Cancer, Hypertension, Musculoskeletal Disorder Additional Past Medical History / Comment(s): hx migraines, MS, edema lower legs and feet, walker- currently using wheelchair, brace on left arm, bladder urgency-wears briefs, hx breast cancer History of Any Multi-Drug Resistant Organisms: None Reported Past Surgical History: Appendectomy, Breast Surgery Additional Past Surgical History / Comment(s): 6 surgeries for breast cancer(rt lumpectomy/mastectomy/reconstructive), shiraz cataracts, Past Anesthesia/Blood Transfusion Reactions: Motion Sickness Past Psychological History: No Psychological Hx Reported Smoking Status: Never smoker Past Alcohol Use History: None Reported Past Drug Use History: None Reported - Past Family History Father Family Medical History: Cancer Sister(s) Family Medical History: Deep Vein Thrombosis (DVT) Medications and Allergies Home Medications Medication Instructions Recorded Confirmed Type Acetaminophen [Tylenol] 650 mg PO Q6H PRN 08/24/15 11/06/20 History Amitriptyline HCl [Elavil] 25 mg PO HS 08/24/15 11/06/20 History Anastrozole [Arimidex] 1 mg PO DAILY 08/24/15 11/06/20 History Baclofen 10 mg PO BID PRN 08/24/15 11/06/20 History Calcium Carbonate [Calcium] 600 mg PO DAILY 08/24/15 11/06/20 History Multivitamins, Thera [Multivitamin 1 tab PO DAILY 08/24/15 11/06/20 History (formulary)] Niacin 500 mg PO HS 08/24/15 11/06/20 History Pregabalin [Lyrica] 50 mg PO BID #60 cap 08/31/15 11/06/20 Rx Atenolol [Tenormin] 100 mg PO BID 10/18/20 11/06/20 History Docusate [Colace] 100 mg PO DAILY PRN 10/18/20 11/06/20 History Fesoterodine Fumarate [Toviaz] 8 mg PO DAILY 10/18/20 11/06/20 History HYDROcodone/APAP 5-325MG [[place] 1 tab PO BID PRN 10/18/20 11/06/20 History 5-325] Meloxicam [Mobic] 7.5 mg PO DAILY 10/18/20 11/06/20 History Potassium Gluconate 99 mg PO DAILY 10/18/20 11/06/20 History Rebif 44 Mcg/0.5 Ml 44 mcg SQ MOWEFR 10/18/20 11/06/20 History Spironolactone [Aldactone] 50 mg PO DAILY 10/18/20 11/06/20 History Alendronate Sodium [Fosamax] 70 mg PO MO 10/20/20 11/06/20 History Losartan Potassium [Cozaar] 100 mg PO DAILY 10/20/20 11/06/20 History Cholecalciferol (Vitamin D3) 75 mcg PO DAILY 11/06/20 11/06/20 History [Vitamin D3 (3000 Iu)] Allergies Allergy/AdvReac Type Severity Reaction Status Date / Time No Known Allergies Allergy Verified 11/06/20 09:57 Physical Examination - Vital Signs Vital Signs: Vital Signs Temp Pulse Resp BP Pulse Ox 11/06/20 08:02 98.3 F 69 18 115/74 100 Intake and Output 11/05/20 11/06/20 11/06/20 22:59 06:59 14:59 Other: Weight 90.718 kg GENERAL: The patient is lying in bed and is not in acute distress. CHEST: The heart rate is regular rate rhythm. No murmurs to auscultation. Significant edema of lower extremities about 3+ bilaterally especially her bilateral feet. LUNG: Clear to auscultation bilaterally no wheezing noted throughout. Not labored breathing. ABDOMEN/GI: Bowel sounds present in all 4 quadrants. No tenderness to palpation throughout. NEUROLOGICAL: Higher mental function: The patient is awake, alert, oriented to self, place and time. Patient is following commands. No aphasia and no neglect. Cranial nerves: The pupils are round, equal and reactive to light and accommodation. Visual paredes are full to confrontation throughout. Extraocular movement is intact no nystagmus is noted. Facial sensation is normal to touch throughout. The facial strength is normal throughout. Hearing is normal bilaterally to hand rub. Tongue is midline and moved [id number] without any difficulty. No dysarthria is noted. Shoulder shrug is normal bilaterally. Motor: Gait is deferred since unable. The strength of lower is able to dorisflex and plantarflex of left ankle, 0-1 proximal left lower extremity. Otherwise no movement of bilateral lower extremity. The upper extremity Left deltoid 4+ (old), left arm flexion/extension is 4+ to 5- (old), bilateral hand lead designer 5- (old). Otherwise 5/5 in upper. No sponatenous movement. Sensation: Sensation is normal to touch throughout. Reflexes (right/left):2+ in upper but 0 in lower (limited because of significant edema) Plantars are mute bilaterally. Results - Laboratory Findings CBC and BMP: 11/06/20 08:42 11/06/20 08:42 Abnormal Lab Findings: Abnormal Labs 11/06/20 11/06/20 11/06/20 08:42 08:42 08:42 Plt Count 126 L APTT 19.0 L Sodium 131 L Potassium 5.5 H BUN 41 H Creatinine 1.23 H ALT 40 H Assessment and Plan Assessment: This is a 65-year-old woman with history of multiple sclerosis that presents because of the weakness of lower extremity that has been going on for 4 weeks and felt today was worse. She has significant edema of her lower extremity. Bilateral lower extremity weakness. I feel like this is more due to underlying significant lower extremity edema. Cannot rule out MS exacerbation. Significant lower extremity pitting edema History of Multiple sclerosis History of hypertension History of right breast cancer status post mastectomy in 2010 and chemotherapy in 2011 Plan: The patient stated that she does not want any imaging regarding her MS. I notified her that her weakness could be because of the swelling but she was adamant about getting steroids. I notified her that I'll only give her IV steroids of 500 mg IV once every 12 hours for 3 days and not more especially with a significant edema. I consulted physical therapy and occupation therapy Regarding the significant edema will defer the management to the primary team. Possibly consider getting cardiology team. She needs to have the sugar monitored since she's can be on IV steroids but will defer the management to the primary team. I started the patient on Protonix twice a day for GI prophylaxis for 4 days since the patient will be getting the IV steroids. Upon discharge the patient stated that she's can follow-up with a different neurologist and I will consider follow-up with Dr. Mcelroy regarding MS management. I recommend a different disease modifying medication since the patient has been on the same medication Rebiv and notified her that she needs imaging as an outpatient to evaluate her multiple sclerosis progression. The plan was discussed with the patient as well as the primary team. Thank you for the consultation. Corey Davidson M.D. Neuro-hospitalist Time with Patient: Greater than 30
[2020-11-06] MEDS: REBIF SQ SCH (12:55)
[2020-11-06] MEDS ORDERED: methylPREDNISolone SOD SUCCI 125 MG/2 ML VIAL IV SCH (13:00)
[2020-11-06] MEDS: PANTOPRAZOLE 40 MG TABLET PO SCH ×2 (13:44→17:59)
[2020-11-06] MEDS: atenoloL 50 MG TAB PO SCH (22:38)
[2020-11-06] MEDS: PREGABALIN 50 MG CAP PO SCH (22:38)
[2020-11-06] MEDS: AMITRIPTYLINE HCL 25 MG TAB PO SCH (22:55)
[2020-11-06] MEDS: NIACIN TR 500 MG CAPLET PO SCH (22:55)
[2020-11-07] MEDS: CALCIUM CARBONATE 500 MG CHEWABLE PO SCH (08:48)
[2020-11-07] MEDS: ANASTROZOLE 1 MG TAB PO SCH (08:48)
[2020-11-07] MEDS: PANTOPRAZOLE 40 MG TABLET PO SCH ×2 (08:48→17:23)
[2020-11-07] MEDS: CHOLECALCIFEROL 25 MCG (1000 IU) TABLET PO SCH (08:48)
[2020-11-07] MEDS: MELOXICAM 7.5 MG TAB PO SCH (08:49)
[2020-11-07] MEDS: atenoloL 50 MG TAB PO SCH ×2 (08:49→22:13)
[2020-11-07] MEDS: MULTIVITAMINS, THERA 1 EACH TAB PO SCH (08:50)
[2020-11-07] MEDS: TROSPIUM CHLORIDE 20 MG TABLET PO SCH ×2 (08:50→22:14)
[2020-11-07] MEDS: LOSARTAN 50 MG TAB PO SCH (08:50)
[2020-11-07] MEDS: PREGABALIN 50 MG CAP PO SCH ×2 (08:52→22:13)
[2020-11-07] MEDS ORDERED: NON FORMULARY DRUG (Potassium Gluconate [Potassium Gluconate] 99 MG Tablet.Er) PO SCH (09:00)
[2020-11-07] MEDS: SPIRONOLACTONE 25 MG TAB PO SCH (09:30)
[2020-11-07] MEDS: FUROSEMIDE 10 MG/ML 2 ML VIAL IV SCH (11:07)
--- NOTE | 2020-11-07 12:02 | HP ---
HISTORY AND PHYSICAL DATE OF ADMISSION: 11/06/2020 HISTORY OF PRESENT ILLNESS: A 65-year-old white female who came in with MS exacerbation, unable to lift her legs, some of which was due to swelling in her legs and some due to an MS exacerbation. She has been on Rebif for many years. She needs a new neurologist in town. Discussed the case with the patient and with Neurology today and some diuresis in the legs will be needed. She had a normal echo last admission. Going to treat her with some IV Solu- Medrol for 72 hours. REVIEW OF SYSTEMS: Fourteen-point review of systems negative except for as mentioned in HPI. PAST MEDICAL HISTORY: MS, hypertension, history of breast cancer, migraines, degenerative disk disease, chronic neuropathy. SURGERIES: Appendectomy, breast surgery, bilateral cataracts, mastectomy, 6 surgeries for breast cancer. SOCIAL HISTORY: Does not smoke. No alcohol. No drugs. FAMILY HISTORY: Father with cancer. Sister with DVT. MEDICATIONS: Medications at home include Arimidex 1 mg daily, baclofen 10 mg b.i.d., calcium 600 daily, multivitamin daily, Lyrica 50 b.i.d., Tenormin 100 b.i.d., Colace 100 daily, Toviaz 8 mg daily, [place] 5/325 b.i.d., Mobic 7.5 daily, potassium gluconate 99 mg daily, Rebif 44 mcg Monday, Monday, Monday, Aldactone 50 mg daily, Fosamax 70 weekly, Cozaar 100 daily, multivitamin daily. ALLERGIES: No known drug allergies. PHYSICAL EXAMINATION: VITAL SIGNS: Temperature 98.3, pulse 60s, respiratory rate 16-18, blood pressure is 115/74. CARDIOVASCULAR: S1, S2. LUNGS: Clear. EXTREMITIES: Show 2 to 3+ edema. HEMATOLOGY: Negative Homans. PSYCH: Fair mood and affect. NEUROLOGIC: Cranial nerves are intact. LABORATORY DATA: Sodium is 131, potassium 5.5, BUN is 41, creatinine 1.23. ASSESSMENT AND PLAN: Bilateral extremity weakness with acute on chronic diastolic heart failure and multiple sclerosis exacerbation. Start IV Lasix. Treat for MS flare. History of breast cancer, hypertension, generalized debility, GERD. Continue current treatments. Please see further orders. MMODL / IJN: [id number] /
--- NOTE | 2020-11-07 15:47 | P.PN ---
Subjective Progress Note Date: 11/07/20 patient was seen at bedside and she feels minimally better today compared to yesterday. She said her edema has been improving in her legs. she has minimal improvement in the right foot. Otherwise no drastic improvement. Denies any new weakness or numbness. Today's is day #2 over 3 for IV Solu-Medrol. Objective - Vital Signs Vital signs: Vital Signs Temp 97.6 F 11/07/20 06:47 Pulse 65 11/07/20 06:47 Resp 18 11/07/20 06:47 BP 118/79 11/07/20 06:47 Pulse Ox 96 11/07/20 06:47 Intake & Output 11/06/20 11/07/20 11/07/20 18:59 06:59 18:59 Intake Total 340 180 Output Total 1352 Balance 340 -1352 180 Weight 90.718 kg Intake: Oral 340 180 Output: Urine 1350 Stool 2 Other: Voiding Method External Catheter External Catheter External Catheter - Exam GENERAL: The patient is lying in bed and is not in acute distress. CHEST: The heart rate is regular rate rhythm. No murmurs to auscultation. Significant edema of lower extremities about 2+ bilaterally especially her bilateral feet (improved since yesterday). NEUROLOGICAL: Higher mental function: The patient is awake, alert, oriented to self, place and time. Patient is following commands. No aphasia and no neglect. Cranial nerves: The pupils are round, equal and reactive to light and accommodation. Visual paredes are full to confrontation throughout. Extraocular movement is intact no nystagmus is noted. Facial sensation is normal to touch throughout. The facial strength is normal throughout. Hearing is normal bilaterally to hand rub. Tongue is midline and moved [id number] without any difficulty. No dysarthria is noted. Shoulder shrug is normal bilaterally. Motor: Gait is deferred since unable. The strength of lower is able to dorisflex and plantarflex of left ankle, 0-1 proximal left lower extremity. Right toe and is able to dorsiflex and plantar flex. Otherwise no movement of bilateral lower extremity. The upper extremity Left deltoid 4+ (old), left arm flexion/extension is 4+ to 5- (old), bilateral hand crop production advisor 5- (old). Otherwise 5/5 in upper. No sponatenous movement. Sensation: Sensation is normal to touch throughout. Reflexes (right/left):2+ in upper but 0 in lower (limited because of significant edema) Plantars are mute bilaterally. - Labs CBC & Chem 7: 11/06/20 08:42 11/06/20 08:42 Assessment and Plan Assessment: This is a 65-year-old woman with history of multiple sclerosis that presents because of the weakness of lower extremity that has been going on for 4 weeks and felt today was worse. She has significant edema of her lower extremity. Bilateral lower extremity weakness. I feel like this is more due to underlying significant lower extremity edema. Cannot rule out acute MS exacerbation. Significant lower extremity pitting edema---subsiding History of Multiple sclerosis History of hypertension History of right breast cancer status post mastectomy in 2010 and chemotherapy in 2011 Plan: The patient stated that she does not want any imaging regarding her MS. I notified her that her weakness could be because of the swelling but she was adamant about getting steroids. Continue IV steroids of 500 mg IV once every 12 hours for 3 days (today is day #2/3). Physical therapy and occupation therapy are consulted Regarding the significant edema will defer the management to the primary team. Possibly consider getting cardiology team. Regarding to monitoring of POC sugar since patient is on IV Solu-Medrol, will defer to primary team. On Protonix twice a day for GI prophylaxis for 4 days since the patient will be getting the IV steroids. Upon discharge the patient stated that she's can follow-up with a different neurologist and I will consider follow-up with Dr. Mcelroy regarding MS management. I recommend a different disease modifying medication since the patient has been on the same medication Rebiv and notified her that she needs imaging as an outpatient to evaluate her multiple sclerosis progression. The plan was discussed with the patient as well as the primary team. Corey Davidson M.D. Neuro-hospitalist Time with Patient: Less than 30
[2020-11-07] MEDS: AMITRIPTYLINE HCL 25 MG TAB PO SCH (22:13)
[2020-11-07] MEDS: NIACIN TR 500 MG CAPLET PO SCH (22:14)
[2020-11-08] MEDS: PANTOPRAZOLE 40 MG TABLET PO SCH ×2 (08:07→16:44)
[2020-11-08] MEDS: LOSARTAN 50 MG TAB PO SCH (08:07)
[2020-11-08] MEDS: atenoloL 50 MG TAB PO SCH ×2 (08:07→22:30)
[2020-11-08] MEDS: SPIRONOLACTONE 25 MG TAB PO SCH (08:07)
[2020-11-08] MEDS: MULTIVITAMINS, THERA 1 EACH TAB PO SCH (08:07)
[2020-11-08] MEDS: CALCIUM CARBONATE 500 MG CHEWABLE PO SCH (08:08)
[2020-11-08] MEDS: FUROSEMIDE 10 MG/ML 2 ML VIAL IV SCH (08:08)
[2020-11-08] MEDS: MELOXICAM 7.5 MG TAB PO SCH (08:08)
[2020-11-08] MEDS: PREGABALIN 50 MG CAP PO SCH ×2 (08:08→22:30)
[2020-11-08] MEDS: CHOLECALCIFEROL 25 MCG (1000 IU) TABLET PO SCH (08:08)
[2020-11-08] MEDS: TROSPIUM CHLORIDE 20 MG TABLET PO SCH ×2 (08:09→22:30)
[2020-11-08] MEDS: ANASTROZOLE 1 MG TAB PO SCH (08:09)
[2020-11-08 09:13] LABS: Basophils # (A) 0.01 X 10*3/uL (0.00-0.10); Basophils % (A) 0.1 %; Eosinophils # (A) 0 X 10*3/uL (0.04-0.35); Eosinophils % (A) 0 %; HCT 31.1 % (37.2-46.3); Lymphocytes # (A) 0.85 X 10*3/uL (0.90-5.00); Lymphocytes % (A) 7.8 %; MCH 31.5 pg (27.0-32.0); MCHC 32.2 g/dL (32.0-37.0); MCV 98.1 fL (80.0-97.0); Mean Platelet Volume 10.9 fL (9.5-12.2); Monocytes # (A) 0.19 X 10*3/uL (0.20-1.00); Monocytes % (A) 1.8 %; Neutrophils # (A) 9.71 X 10*3/uL (1.80-7.70); Neutrophils % (A) 89.5 %; Platelet Count 111 X 10*3/uL (140-440); RBC 3.17 X 10*6/uL (4.10-5.20); WBC 10.85 X 10*3/uL (4.50-10.00)
[2020-11-08 10:23] LABS: African American GFR (CKD) 78.9 (60.0-200.0); Albumin 2.8 g/dL (3.80-4.90); Albumin/Globulin Ratio 2.15 (1.60-3.17); Anion Gap 3.6 mmol/L (4.00-12.00); BUN/Creat Ratio 31.11 Ratio (12.00-20.00); Calcium 7.1 mg/dL (8.7-10.3); Carbon Dioxide 21.4 mmol/L (21.6-31.8); Globulin 1.3 g/dL (1.6-3.3); Potassium 3.9 mmol/L (3.5-5.5); Total Bilirubin 0.3 mg/dL (0.2-1.2); Total Protein 4.1 g/dL (6.2-8.2)
--- NOTE | 2020-11-08 14:16 | P.PN ---
Subjective Progress Note Date: 11/08/20 Was seen at bedside and she states she feels about the same today compared to yesterday. She doesn't see any further drastic improvement today compared to yesterday. Objective - Vital Signs Vital signs: Vital Signs Temp 98 F 11/08/20 13:29 Pulse 68 11/08/20 13:29 Resp 16 11/08/20 13:29 BP 147/85 11/08/20 13:29 Pulse Ox 96 11/08/20 13:29 Intake & Output 11/07/20 11/08/20 11/08/20 18:59 06:59 18:59 Intake Total 420 Output Total 850 Balance -430 Intake: Oral 420 Output: Urine 850 Other: Voiding Method External Catheter External Catheter # Bowel Movements 2 - Exam GENERAL: The patient is lying in bed and is not in acute distress. CHEST: The heart rate is regular rate rhythm. No murmurs to auscultation. Significant edema of lower extremities about 2+ bilaterally especially her bilateral feet (improved since presentation). NEUROLOGICAL: Higher mental function: The patient is awake, alert, oriented to self, place and time. Patient is following commands. No aphasia and no neglect. Cranial nerves: The pupils are round, equal and reactive to light and accommodation. Visual paredes are full to confrontation throughout. Extraocular movement is intact no nystagmus is noted. Facial sensation is normal to touch throughout. The facial strength is normal throughout. Hearing is normal bilaterally to hand rub. Tongue is midline and moved [id number] without any difficulty. No dysarthria is noted. Shoulder shrug is normal bilaterally. Motor: Gait is deferred since unable. The strength of lower is able to dorisflex and plantarflex of left ankle, 0-1 proximal left lower extremity. Right toe and is able to dorsiflex and plantar flex. Otherwise no movement of bilateral lower extremity. The upper extremity Left deltoid 4+ (old), left arm flexion/extension is 4+ to 5- (old), bilateral hand police chief deputy 5- (old). Otherwise 5/5 in upper. No sponatenous movement. Sensation: Sensation is normal to touch throughout. Reflexes (right/left):2+ in upper but 0 in lower (limited because of significant edema) Plantars are mute bilaterally. - Labs CBC & Chem 7: 11/08/20 06:01 11/08/20 06:01 Labs: Abnormal Lab Results - Last 24 Hours (Table) 11/08/20 11/08/20 Range/Units 06:01 06:01 WBC 10.85 H (4.50-10.00) X 10*3/uL RBC 3.17 L (4.10-5.20) X 10*6/uL Hgb 10.0 L (12.0-15.0) g/dL Hct 31.1 L (37.2-46.3) % MCV 98.1 H (80.0-97.0) fL RDW 15.0 H (11.5-14.5) % Plt Count 111 L (140-440) X 10*3/uL Immature Gran # 0.09 H (0.00-0.04) X 10*3/uL Neutrophils # 9.71 H (1.80-7.70) X 10*3/uL Lymphocytes # 0.85 L (0.90-5.00) X 10*3/uL Monocytes # 0.19 L (0.20-1.00) X 10*3/uL Eosinophils # 0 L (0.04-0.35) X 10*3/uL Chloride 114 H (96-109) mmol/L Carbon Dioxide 21.4 L (21.6-31.8) mmol/L Anion Gap 3.60 L (4.00-12.00) mmol/L BUN 28.0 H (9.0-27.0) mg/dL BUN/Creatinine Ratio 31.11 H (12.00-20.00) Ratio Glucose 116 H (70-110) mg/dL Calcium 7.1 L (8.7-10.3) mg/dL Total Protein 4.1 L (6.2-8.2) g/dL Albumin 2.80 L (3.80-4.90) g/dL Globulin 1.3 L (1.6-3.3) g/dL Assessment and Plan Assessment: This is a 65-year-old woman with history of multiple sclerosis that presents because of the weakness of lower extremity that has been going on for 4 weeks and felt today was worse. She has significant edema of her lower extremity. Bilateral lower extremity weakness. I feel like this is more due to underlying significant lower extremity edema. Cannot rule out acute MS exacerbation. Significant lower extremity pitting edema---subsiding History of Multiple sclerosis History of hypertension History of right breast cancer status post mastectomy in 2011 and chemotherapy in 2012 Plan: The patient stated that she does not want any imaging regarding her MS. I notified her that her weakness could be because of the swelling but she was adamant about getting steroids. Continue IV steroids of 500 mg IV once every 12 hours for 3 days (today is day #3/3). She will get the last dose late tonight. Physical therapy and occupation therapy are consulted Regarding the significant edema will defer the management to the primary team. Possibly consider getting cardiology team. Regarding to monitoring of POC sugar since patient is on IV Solu-Medrol, will defer to primary team. On Protonix twice a day for GI prophylaxis for 4 days since the patient will be getting the IV steroids. Upon discharge the patient stated that she's can follow-up with a different neurologist and I will consider follow-up with Dr. Mcelroy regarding MS management. I recommend a different disease modifying medication since the patient has been on the same medication Rebiv and notified her that she needs imaging as an outpatient to evaluate her multiple sclerosis progression. There is no further neurological work-up. Neurology will sign off. Please reconsult if needed. The plan was discussed with the patient. Corey Davidson M.D. Neuro-hospitalist Time with Patient: Less than 30
[2020-11-08] MEDS: AMITRIPTYLINE HCL 25 MG TAB PO SCH (22:30)
[2020-11-08] MEDS: NIACIN TR 500 MG CAPLET PO SCH (22:30)
--- NOTE | 2020-11-09 06:51 | PN ---
PROGRESS NOTE This is a 65-year-old white female with MS exacerbation on IV Solu-Medrol for day three, 250 q.6. Also on IV Lasix 20 mg daily and spironolactone for diuresis. Leg swelling is improved. Leg edema is improved. Cardiovascular S1-S2. Lungs transmitted upper airway sounds. Hematology negative Homans. Psych fair mood and affect. Neurologic alert and oriented x3. ASSESSMENT: 1. Congestive heart failure, diastolic. 2. Multiple sclerosis exacerbation. Continue IV Lasix, spironolactone. Prognosis guarded. Follow up in the next 24 to 48 hours. MMODL / IJN: [id number] /
[2020-11-09] MEDS ORDERED: Alendronate Sodium [Fosamax] 70 MG Tablet PO SCH (07:00)
[2020-11-09] MEDS: SPIRONOLACTONE 25 MG TAB PO SCH (07:34)
[2020-11-09] MEDS: CHOLECALCIFEROL 25 MCG (1000 IU) TABLET PO SCH (07:34)
[2020-11-09] MEDS: CALCIUM CARBONATE 500 MG CHEWABLE PO SCH (07:34)
[2020-11-09] MEDS: PANTOPRAZOLE 40 MG TABLET PO SCH (07:34)
[2020-11-09] MEDS: MELOXICAM 7.5 MG TAB PO SCH (07:34)
[2020-11-09] MEDS: PREGABALIN 50 MG CAP PO SCH ×2 (07:34→20:06)
[2020-11-09] MEDS: MULTIVITAMINS, THERA 1 EACH TAB PO SCH (07:34)
[2020-11-09] MEDS: FUROSEMIDE 10 MG/ML 2 ML VIAL IV SCH (07:35)
[2020-11-09] MEDS: atenoloL 50 MG TAB PO SCH ×2 (07:35→20:07)
[2020-11-09] MEDS: LOSARTAN 50 MG TAB PO SCH (07:35)
[2020-11-09] MEDS: ANASTROZOLE 1 MG TAB PO SCH (07:37)
[2020-11-09] MEDS: TROSPIUM CHLORIDE 20 MG TABLET PO SCH ×2 (07:37→20:07)
[2020-11-09] MEDS ORDERED: NON FORMULARY DRUG (Alendronate Sodium [Fosamax] 70 MG Tablet) PO SCH (11:48)
[2020-11-09] MEDS: REBIF SQ SCH (15:30)
[2020-11-09] MEDS ORDERED: REBIF SQ SCH (16:00)
[2020-11-09] MEDS: NIACIN TR 500 MG CAPLET PO SCH (20:06)
[2020-11-09] MEDS: AMITRIPTYLINE HCL 25 MG TAB PO SCH (20:07)
--- NOTE | 2020-11-09 20:15 | PN ---
PROGRESS NOTE Fun[age]-old white female admitted to the hospital. She feels about the same as yesterday. She is not ambulating. She is weak, fatigued. The legs are heavy. They are getting skinnier, though, with IV Lasix I ordered. Temperature 98, pulse 63, respiratory rate 12-16, blood pressure 147/86. Strength is about 3/5 to the legs, 4/5 to the arms. Two plus edema, but it is improving. White count 10.35. Hemoglobin is 10.0, BUN is 28, creatinine 0.9. ASSESSMENT: Generalized weakness secondary to possible fluid overload versus MS exacerbation. Remains on IV steroids. Continue current treatment. PT/OT. Possible discharge home soon. Prognosis guarded. MMODL / IJN: [id number] /
[2020-11-10 03:28] VITALS: RESP 16
[2020-11-10 07:40] VITALS: BP 158/94; PULSE 63; TEMP 97.9
[2020-11-10] MEDS ORDERED: FUROSEMIDE 20 MG TAB PO SCH (09:00)
[2020-11-10] MEDS: PREGABALIN 50 MG CAP PO SCH (09:00)
[2020-11-10] MEDS: MELOXICAM 7.5 MG TAB PO SCH (09:00)
[2020-11-10] MEDS: LOSARTAN 50 MG TAB PO SCH (09:01)
[2020-11-10] MEDS: MULTIVITAMINS, THERA 1 EACH TAB PO SCH (09:01)
[2020-11-10] MEDS: CALCIUM CARBONATE 500 MG CHEWABLE PO SCH (09:01)
[2020-11-10] MEDS: atenoloL 50 MG TAB PO SCH (09:01)
[2020-11-10] MEDS: SPIRONOLACTONE 25 MG TAB PO SCH (09:01)
[2020-11-10] MEDS: TROSPIUM CHLORIDE 20 MG TABLET PO SCH (09:01)
[2020-11-10] MEDS: CHOLECALCIFEROL 25 MCG (1000 IU) TABLET PO SCH (09:01)
[2020-11-10] MEDS: ANASTROZOLE 1 MG TAB PO SCH (09:02)
--- NOTE | 2020-11-12 09:00 | DS ---
DISCHARGE SUMMARY DATE OF DISCHARGE: Discharged home November 10, 2020. MEDICINES: 1. Multivitamin 1 daily. 2. Calcium carbonate 600 mg daily. 3. Niacin 500 mg at bedtime. 4. Baclofen 10 mg b.i.d. 5. Arimidex 1 mg daily. 6. Elavil 25 at bedtime. 7. Tylenol 650 q.6 hours p.r.n. 8. Lyrica 50 b.i.d. 9. Toviaz 8 mg daily. 10.Aldactone 50 mg daily. 11.Mobic 7.5 mg daily. 12.Colace 100 mg daily. 13.Mcdermott 5/325 b.i.d. 14.Tenormin 100 b.i.d. 15.Rebif 44 mcg Monday, Monday, Monday. 16.Losartan 100 mg daily. 17.Fosamax 70 mg weekly. 18.Vitamin D 75 mcg p.o. daily. CONDITION: Stable. PROGNOSIS: Guarded. AMBULATE: As tolerated. DISCHARGE DIAGNOSES: 1. Exacerbation of multiple sclerosis. 2. Diastolic heart failure. 3. Hypertension. 4. Generalized weakness. 5. Osteoarthritis. 6. History of breast cancer. 7. History of neuropathy. The patient was admitted to the hospital, received 3 days of high-dose Solu-Medrol for multiple sclerosis exacerbation is treated with oral Lasix and increased diuretics due to swelling in the legs. Diastolic heart failure was treated as well as multiple sclerosis exacerbation with steroids. Shes needs rehab. She wants to try at home first then go to the [facility] if she needs to due to generalized weakness and multiple sclerosis exacerbation. Condition stable. Prognosis guarded. Ambulate as tolerated. MMODL / IJN: [id number] /
== END 2020-11-10 10:49 | DRG 58 ==
LOC: EC 07:49 → 6NMEDSUR 11:22 → OBSVTOIN 11:22 → 6NMEDSUR 14:57
PROVIDERS: ADMIT Family Medicine; ATTEND Family Medicine
DX: G35 Multiple sclerosis (principal); I50.33 Acute on chronic diastolic (congestive) heart failure; I11.0 Hypertensive heart disease with heart failure; M19.90 Unspecified osteoarthritis, unspecified site; Z79.1 Long term (current) use of non-steroidal anti-inflammatories (NSAID); Z79.811 Long term (current) use of aromatase inhibitors; Z79.83 Long term (current) use of bisphosphonates; Z79.899 Other long term (current) drug therapy; Z80.9 Family history of malignant neoplasm, unspecified; Z85.3 Personal history of malignant neoplasm of breast; Z90.11 Acquired absence of right breast and nipple; Z20.822 Contact with and (suspected) exposure to COVID-19; Z98.42 Cataract extraction status, left eye; Z98.41 Cataract extraction status, right eye; Z90.49 Acquired absence of other specified parts of digestive tract; Z92.21 Personal history of antineoplastic chemotherapy; G43.909 Migraine, unspecified, not intractable, without status migrainosus; G62.9 Polyneuropathy, unspecified; Z83.2 Family history of diseases of the blood and blood-forming organs and certain disorders involving the immune mechanism
CPT/HCPCS: 36415; 80053; 81003; 83605; 83735; 83880; 84484; 85025; 85610; 85730; 87635; 93005; 99285

== ENCOUNTER 2020-12-12 15:47 | Inpatient (IN) | payer MEDICARE ==
[2020-12-12 15:52] LABS: Glucose,Whole Blood 48 mg/dL (75-99)
[2020-12-12 15:53] LABS: Glucose,Whole Blood 54 mg/dL (75-99)
[2020-12-12] MEDS ORDERED: DEXTROSE 50% SYRINGE 50 ML IVP STA ×3 (15:58→22:43)
--- NOTE | 2020-12-12 16:09 | ED ---
General Adult HPI - General Chief complaint: Neuro Symptoms/Deficit Stated complaint: AMS Time Seen by Provider: 12/12/20 15:50 Source: patient, family Mode of arrival: EMS Limitations: no limitations - History of Present Illness Initial comments: Patient is a 65 year old female past medical history of peripheral edema, MS who presents to the emergency department with altered mental status. EMS provided majority of the history. They called the patient is a priority 1 for possible stroke. They state that the patient was weak on her left side with sensory deficit on the right side. Her last known well was at 2 AM in the morning. Home care nurse came to the house and found the patient altered and therefore recommended that she come into the emergency room. The patient is actively hallucinating. On my exam the patient does not appear to have any weakness in her extremities or sensory deficit. She cannot provide any history. Accu-Chek at bedside demonstrates that the patient's glucose is 54. She is given an amp of dextrose. Significant other does present to bedside. Reports that the patient was recently hospitalized. She is on a taper of prednisone as she was hospitalized for an MS exacerbation. Significant other's concern for urinary tract infection as she has been on 2 courses of antibiotics for a UTI. He denies any fevers. No nausea or vomiting. Review of the patient's discharge summary states that the patient was supposed to be taken off of her potassium supplements. Patient and significant other cannot answer whether the patient did stop taking it. Remainder the HPI is limited - Related Data Home Medications Medication Instructions Recorded Confirmed Acetaminophen [Tylenol] 650 mg PO Q6H PRN 08/24/15 12/12/20 Anastrozole [Arimidex] 1 mg PO DAILY 08/24/15 12/12/20 Baclofen 10 mg PO BID PRN 08/24/15 12/12/20 HYDROcodone/APAP 5-325MG [[place] 1 tab PO BID PRN 10/18/20 12/12/20 5-325] Previous Rx's Medication Instructions Recorded Pregabalin [Lyrica] 50 mg PO BID #60 cap 08/31/15 Apixaban [Eliquis] 5 mg PO BID #60 tab 12/15/20 Amiodarone [Cordarone] 200 mg PO DAILY tab 12/25/20 Calcium Carbonate [Tums] 500 mg PO DAILY chew 12/25/20 Cholecalciferol [Vitamin D3 (25 75 mcg PO DAILY tablet 12/25/20 Mcg = 1000 Iu)] Dimethyl Fumarate [Tecfidera] 120 mg PO BID 7 Days #14 cap 12/25/20 Dimethyl Fumarate [Tecfidera] 240 mg PO BID #60 cap 12/25/20 Furosemide [Lasix] 40 mg PO DAILY tab 12/25/20 Magnesium Hydroxide [Milk of 2,400 mg PO DAILY PRN ml 12/25/20 Magnesia Concentrate] Metoprolol Tartrate [Lopressor] 25 mg PO BID tab 12/25/20 Pyridoxine [Vitamin B-6] 50 mg PO DAILY tab 12/25/20 Spironolactone [Aldactone] 50 mg PO DAILY tab 12/25/20 predniSONE [Deltasone] 60 mg PO DAILY tab 12/25/20 Allergies Allergy/AdvReac Type Severity Reaction Status Date / Time No Known Allergies Allergy Verified 12/12/20 18:05 Review of Systems ROS Statement: Those systems with pertinent positive or pertinent negative responses have been documented in the HPI. ROS Other: All systems not noted in ROS Statement are negative. Past Medical History Past Medical History: Cancer, Hypertension, Musculoskeletal Disorder Additional Past Medical History / Comment(s): hx migraines, MS, edema lower legs and feet, walker- currently using wheelchair, brace on left arm, bladder urgency-wears briefs, hx breast cancer History of Any Multi-Drug Resistant Organisms: None Reported Past Surgical History: Appendectomy, Breast Surgery Additional Past Surgical History / Comment(s): 6 surgeries for breast cancer(rt lumpectomy/mastectomy/reconstructive), shiraz cataracts, Past Anesthesia/Blood Transfusion Reactions: Motion Sickness Past Psychological History: No Psychological Hx Reported Smoking Status: Never smoker Past Alcohol Use History: None Reported Past Drug Use History: None Reported - Past Family History Father Family Medical History: Cancer Sister(s) Family Medical History: Deep Vein Thrombosis (DVT) General Exam Limitations: altered mental status General appearance: lethargic Head exam: Present: atraumatic, normocephalic, normal inspection Eye exam: Present: normal appearance, PERRL, EOMI. Absent: scleral icterus, conjunctival injection, periorbital swelling ENT exam: Present: mucous membranes dry Neck exam: Present: normal inspection. Absent: tenderness, meningismus, lymphadenopathy Respiratory exam: Present: normal lung sounds bilaterally. Absent: respiratory distress, wheezes, rales, rhonchi, stridor GI/Abdominal exam: Present: soft, normal bowel sounds. Absent: distended, tenderness, guarding, rebound, rigid Extremities exam: Present: pedal edema Neurological exam: Present: altered Psychiatric exam: Present: other (hallucinating) Course Vital Signs 12/12/20 12/12/20 12/12/20 15:48 16:00 16:30 Temperature 98.6 F Pulse Rate 72 71 72 Respiratory 18 18 17 Rate Blood Pressure 179/106 178/127 156/103 O2 Sat by Pulse 96 99 Oximetry 12/12/20 12/12/20 12/12/20 18:01 19:06 19:19 Temperature Pulse Rate 85 72 78 Respiratory 17 Rate Blood Pressure 113/70 O2 Sat by Pulse Oximetry 12/12/20 12/12/20 12/12/20 19:37 20:00 20:24 Temperature 98.1 F Pulse Rate 80 87 Respiratory 18 18 17 Rate Blood Pressure 107/72 151/86 O2 Sat by Pulse 96 98 Oximetry - Reevaluation(s) Reevaluation #1: spoke with dr. vega 12/12/20 1745 Reevaluation #2: 12/12/20 18:[address] No EKG Findings - EKG Comments: EKG Findings:: EKG demonstrates normal sinus rhythm with ventricular rate of 72. [place] interval 182. QRS 132. QTC 413. No acute ST segment elevations. Peaked T waves in the inferior and lateral leads Medical Decision Making - Medical Decision Making Upon arrival patient is placed into room 11. She is actively hallucinating. There does not appear to be any lateralizing deficits. IV is established by ultrasound guidance. Laboratory studies are conducted. Patient was given an amp of dextrose and glucose is rechecked and found to be 112. She does go over for a CT of her brain which demonstrates no acute findings. Old lacunar infarct in the left caudate nucleus. Chest x-ray demonstrates no acute cardiopulmonary process. Laboratory studies reveal white count of 24,000. Sodium 119, pota ssium 7.9. Creatinine 1.2. Troponin 0.077. Urine is clear of infection. Physical exam reveals that the patient does have some anasarca. I did order urine studies are currently pending. I gave the patient a gram of calcium chloride, 2 A of bicarb, 15 mg of albuterol, additional amp of dextrose, 10 units of insulin and 30 g of Kayexalate. I did speak with Dr. No who additionally recommended 40 of Lasix. Repeat BMP will be at 2100. I also discussed the case with Dr. Lindsey due to the elevated potassium who accepts the patient to the ICU. I will trend the patient's troponins. Blood cultures obtained however will hold off on antibiotics as the elevated white blood cell count may be due to steroids. I spoke with Dr. Vega who agreed to admit the patient. Patient is currently awaiting a bed on the floor - Lab Data Result diagrams: 12/24/20 08:00 12/24/20 08:00 Lab Results 12/12/20 12/12/20 12/12/20 Range/Units 15:51 15:52 16:49 WBC 24.2 H (3.8-10.6) k/uL RBC 4.02 (3.80-5.40) m/uL Hgb 13.0 (11.4-16.0) gm/dL Hct 37.7 (34.0-46.0) % MCV 93.8 (80.0-100.0) fL MCH 32.4 (25.0-35.0) pg MCHC 34.5 (31.0-37.0) g/dL RDW 14.1 (11.5-15.5) % Plt Count 250 (150-450) k/uL MPV 7.3 Neutrophils % 86 % Lymphocytes % 10 % Monocytes % 3 % Eosinophils % 0 % Basophils % 1 % Neutrophils # 20.7 H (1.3-7.7) k/uL Lymphocytes # 2.3 (1.0-4.8) k/uL Monocytes # 0.7 (0-1.0) k/uL Eosinophils # 0.1 (0-0.7) k/uL Basophils # 0.2 (0-0.2) k/uL PT (9.0-12.0) sec INR (<1.2) APTT (22.0-30.0) sec Sodium (137-145) mmol/L Potassium (3.5-5.1) mmol/L Chloride (98-107) mmol/L Carbon Dioxide (22-30) mmol/L Anion Gap mmol/L BUN (7-17) mg/dL Creatinine (0.52-1.04) mg/dL Est GFR (CKD-EPI)AfAm (>60 ml/min/1.73 sqM) Est GFR (CKD-EPI)NonAf (>60 ml/min/1.73 sqM) Glucose (74-99) mg/dL POC Glucose (mg/dL) 48 L 54 L (75-99) mg/dL POC Glu Manager Portable Arianne Storey Danielle Calcium (8.4-10.2) mg/dL Total Bilirubin (0.2-1.3) mg/dL AST (14-36) U/L ALT (4-34) U/L Alkaline Phosphatase (38-126) U/L Creatine Kinase (30-135) U/L Troponin I (0.000-0.034) ng/mL Total Protein (6.3-8.2) g/dL Albumin (3.5-5.0) g/dL Urine Color Urine Appearance (Clear) Urine pH (5.0-8.0) Ur Specific [place] (1.001-1.035) Urine Protein (Negative) Urine Glucose (UA) (Negative) Urine Ketones (Negative) Urine Blood (Negative) Urine Nitrite (Negative) Urine Bilirubin (Negative) Urine Urobilinogen (<2.0) mg/dL Ur Leukocyte Esterase (Negative) Urine WBC (0-5) /hpf Urine Mucus (None) /hpf Urine Opiates Screen (NotDetected) Ur Oxycodone Screen (NotDetected) Urine Methadone Screen (NotDetected) Ur Propoxyphene Screen (NotDetected) Ur Barbiturates Screen (NotDetected) U Tricyclic Antidepress (NotDetected) Ur Phencyclidine Scrn (NotDetected) Ur Amphetamines Screen (NotDetected) U Methamphetamines Scrn (NotDetected) U Benzodiazepines Scrn (NotDetected) Urine Cocaine Screen (NotDetected) U Marijuana (THC) Screen (NotDetected) 12/12/20 12/12/20 12/12/20 Range/Units 16:49 16:49 16:49 WBC (3.8-10.6) k/uL RBC (3.80-5.40) m/uL Hgb (11.4-16.0) gm/dL Hct (34.0-46.0) % MCV (80.0-100.0) fL MCH (25.0-35.0) pg MCHC (31.0-37.0) g/dL RDW (11.5-15.5) % Plt Count (150-450) k/uL MPV Neutrophils % % Lymphocytes % % Monocytes % % Eosinophils % % Basophils % % Neutrophils # (1.3-7.7) k/uL Lymphocytes # (1.0-4.8) k/uL Monocytes # (0-1.0) k/uL Eosinophils # (0-0.7) k/uL Basophils # (0-0.2) k/uL PT 9.6 (9.0-12.0) sec INR 0.9 (<1.2) APTT 20.4 L (22.0-30.0) sec Sodium 119 L* (137-145) mmol/L Potassium 7.2 H* (3.5-5.1) mmol/L Chloride 91 L (98-107) mmol/L Carbon Dioxide 21 L (22-30) mmol/L Anion Gap 7 mmol/L BUN 70 H (7-17) mg/dL Creatinine 1.22 H (0.52-1.04) mg/dL Est GFR (CKD-EPI)AfAm 55 (>60 ml/min/1.73 sqM) Est GFR (CKD-EPI)NonAf 47 (>60 ml/min/1.73 sqM) Glucose 87 (74-99) mg/dL POC Glucose (mg/dL) (75-99) mg/dL POC Glu Manager Portable ID Calcium 9.8 (8.4-10.2) mg/dL Total Bilirubin 0.5 (0.2-1.3) mg/dL AST 38 H (14-36) U/L ALT 76 H (4-34) U/L Alkaline Phosphatase 71 (38-126) U/L Creatine Kinase 28 L (30-135) U/L Troponin I (0.000-0.034) ng/mL Total Protein 6.4 (6.3-8.2) g/dL Albumin 3.8 (3.5-5.0) g/dL Urine Color Light Yellow Urine Appearance Cloudy H (Clear) Urine pH 7.5 (5.0-8.0) Ur Specific [place] 1.009 (1.001-1.035) Urine Protein Negative (Negative) Urine Glucose (UA) 3+ H (Negative) Urine Ketones Negative (Negative) Urine Blood Negative (Negative) Urine Nitrite Negative (Negative) Urine Bilirubin Negative (Negative) Urine Urobilinogen <2.0 (<2.0) mg/dL Ur Leukocyte Esterase Negative (Negative) Urine WBC <1 (0-5) /hpf Urine Mucus Rare H (None) /hpf Urine Opiates Screen Not Detected (NotDetected) Ur Oxycodone Screen Not Detected (NotDetected) Urine Methadone Screen Not Detected (NotDetected) Ur Propoxyphene Screen Not Detected (NotDetected) Ur Barbiturates Screen Not Detected (NotDetected) U Tricyclic Antidepress Detected H (NotDetected) Ur Phencyclidine Scrn Not Detected (NotDetected) Ur Amphetamines Screen Not Detected (NotDetected) U Methamphetamines Scrn Not Detected (NotDetected) U Benzodiazepines Scrn Not Detected (NotDetected) Urine Cocaine Screen Not Detected (NotDetected) U Marijuana (THC) Screen Not Detected (NotDetected) 12/12/20 12/12/20 Range/Units 16:49 16:53 WBC (3.8-10.6) k/uL RBC (3.80-5.40) m/uL Hgb (11.4-16.0) gm/dL Hct (34.0-46.0) % MCV (80.0-100.0) fL MCH (25.0-35.0) pg MCHC (31.0-37.0) g/dL RDW (11.5-15.5) % Plt Count (150-450) k/uL MPV Neutrophils % % Lymphocytes % % Monocytes % % Eosinophils % % Basophils % % Neutrophils # (1.3-7.7) k/uL Lymphocytes # (1.0-4.8) k/uL Monocytes # (0-1.0) k/uL Eosinophils # (0-0.7) k/uL Basophils # (0-0.2) k/uL PT (9.0-12.0) sec INR (<1.2) APTT (22.0-30.0) sec Sodium (137-145) mmol/L Potassium (3.5-5.1) mmol/L Chloride (98-107) mmol/L Carbon Dioxide (22-30) mmol/L Anion Gap mmol/L BUN (7-17) mg/dL Creatinine (0.52-1.04) mg/dL Est GFR (CKD-EPI)AfAm (>60 ml/min/1.73 sqM) Est GFR (CKD-EPI)NonAf (>60 ml/min/1.73 sqM) Glucose (74-99) mg/dL POC Glucose (mg/dL) 112 H (75-99) mg/dL POC Glu Manager Portable ID Kena Giles Calcium (8.4-10.2) mg/dL Total Bilirubin (0.2-1.3) mg/dL AST (14-36) U/L ALT (4-34) U/L Alkaline Phosphatase (38-126) U/L Creatine Kinase (30-135) U/L Troponin I 0.077 H* (0.000-0.034) ng/mL Total Protein (6.3-8.2) g/dL Albumin (3.5-5.0) g/dL Urine Color Urine Appearance (Clear) Urine pH (5.0-8.0) Ur Specific [place] (1.001-1.035) Urine Protein (Negative) Urine Glucose (UA) (Negative) Urine Ketones (Negative) Urine Blood (Negative) Urine Nitrite (Negative) Urine Bilirubin (Negative) Urine Urobilinogen (<2.0) mg/dL Ur Leukocyte Esterase (Negative) Urine WBC (0-5) /hpf Urine Mucus (None) /hpf Urine Opiates Screen (NotDetected) Ur Oxycodone Screen (NotDetected) Urine Methadone Screen (NotDetected) Ur Propoxyphene Screen (NotDetected) Ur Barbiturates Screen (NotDetected) U Tricyclic Antidepress (NotDetected) Ur Phencyclidine Scrn (NotDetected) Ur Amphetamines Screen (NotDetected) U Methamphetamines Scrn (NotDetected) U Benzodiazepines Scrn (NotDetected) Urine Cocaine Screen (NotDetected) U Marijuana (THC) Screen (NotDetected) Critical Care Time Critical Care Time: Yes Critical Care Time: 32 minutes for treatment of hyperkalemia, multiple repeat evaluations, consultation with medical affairs manager and chief innovation officer and admission to the icu. Disposition Clinical Impression: Multiple sclerosis, Weakness, Hyperkalemia, Hyponatremia, NSTEMI (non-ST elevated myocardial infarction) Disposition: ADMITTED IP TO THIS [facility] Condition: Serious Is patient prescribed a controlled substance at d/c from ED?: No Decision to Admit Reason: Admit from EC Decision Date: 12/12/20 Decision Time: 17:42
[2020-12-12 16:54] LABS: Glucose,Whole Blood 112 mg/dL (75-99)
[2020-12-12 17:02] LABS: Basophils # (A) 0.2 k/uL (0-0.2); Basophils % (A) 1 %; Eosinophils # (A) 0.1 k/uL (0-0.7); Eosinophils % (A) 0 %; HCT 37.7 % (34.0-46.0); Lymphocytes # (A) 2.3 k/uL (1.0-4.8); Lymphocytes % (A) 10 %; MCH 32.4 pg (25.0-35.0); MCHC 34.5 g/dL (31.0-37.0); MCV 93.8 fL (80.0-100.0); Mean Platelet Volume 7.3; Monocytes # (A) 0.7 k/uL (0-1.0); Monocytes % (A) 3 %; Neutrophils # (A) 20.7 k/uL (1.3-7.7); Neutrophils % (A) 86 %; Platelet Count 250 k/uL (150-450); RBC 4.02 m/uL (3.80-5.40); RDW 14.1 % (11.5-15.5); WBC 24.2 k/uL (3.8-10.6)
[2020-12-12 17:16] LABS: Albumin 3.8 g/dL (3.5-5.0); Calcium 9.8 mg/dL (8.4-10.2); Total Bilirubin 0.5 mg/dL (0.2-1.3); Total Protein 6.4 g/dL (6.3-8.2)
[2020-12-12 17:21] LABS: INR 0.9 (<1.2); Partial Thromboplastin Time 20.4 sec (22.0-30.0); Prothrombin Time 9.6 sec (9.0-12.0)
[2020-12-12 17:26] LABS: Potassium 7.2 mmol/L (3.5-5.1)
[2020-12-12 17:28] LABS: Appearance,Urine Cloudy (Clear); Bilirubin,Urine Negative (Negative); Blood,Urine Negative (Negative); Color,Urine Light Yellow; Glucose,Urine (UA) 3+ (Negative); Ketones,Urine Negative (Negative); Leukocyte Esterase,Urine Negative (Negative); Mucus,Urine Rare /hpf; Nitrite,Urine Negative (Negative); PH, Urine 7.5 (5.0-8.0); Protein,Urine Negative (Negative); Specific Gravity,Urine 1.009 (1.001-1.035); Urobilinogen,Urine <2.0 mg/dL (<2.0); WBC,Urine <1 /hpf (0-5)
[2020-12-12 17:34] LABS: Amphetamine Screen,Urine Not Detected (NotDetected); Barbiturate Screen,Urine Not Detected (NotDetected); Benzodiazepines Screen,Urine Not Detected (NotDetected); Cocaine Screen,Urine Not Detected (NotDetected); Methadone Screen, Urine Not Detected (NotDetected); Opiate Screen,Urine Not Detected (NotDetected); Oxycodone Screen, Urine Not Detected (NotDetected); Phencyclidine Screen,Urine Not Detected (NotDetected); Tricyclic Antidepressant,Urine Detected (NotDetected); Urn Cannabinoid Scrn Not Detected (NotDetected)
--- NOTE | 2020-12-12 17:34 | CT ---
EXAMINATION TYPE: CT brain wo con DATE OF EXAM: 12/12/2020 COMPARISON: None HISTORY: ams, confusion. recent UTI. CT DLP: 1142.4 mGycm Automated exposure control for dose reduction was used. FINDINGS: The ventricles, basal cisterns and sulci over the convexities are within normal limits for the patien t's age and there is no mass effect or shift of midline structures. There is a small remote lacunar infarct in the left caudate nucleus otherwise no abnormal density is seen throughout the brain parenchyma. There is no acute intra or extra-axial hemorrhage. The posterior fossa is grossly normal. The intraorbital contents appear normal and symmetric. Visualized paranasal sinuses and mastoid air c ells are well aerated. IMPRESSION: NO ACUTE BLEED OR MASS EFFECT. REMOTE LACUNAR INFARCT IN THE LEFT CAUDATE NUCLEUS.
[2020-12-12] MEDS ORDERED: SODIUM BICARB 8.4% 50 ML SYR (1 MEQ/ML) IV STA ×3 (17:35→22:19)
[2020-12-12] MEDS ORDERED: INSULIN REGULAR 100 UNIT/ML VIAL IV ONE ×2 (17:35→22:42)
[2020-12-12] MEDS ORDERED: SODIUM POLYSTYRENE SULFONATE 15 GM/60 ML BOTTLE PO STA (17:36)
[2020-12-12] MEDS ORDERED: ALBUTEROL NEBULIZED 2.5 MG/3 ML INHALATION STA (17:36)
--- NOTE | 2020-12-12 17:42 | XR ---
EXAMINATION TYPE: XR chest 2V DATE OF EXAM: 12/12/2020 COMPARISON: 08/31/2015 HISTORY: Recent fall TECHNIQUE: Frontal and lateral views of the chest are obtained. FINDINGS: There is no focal air space opacity, pleural effusion, or pneumothorax seen. The cardiac silhouette size is within normal limits. The glenohumeral joints are markedly degenerated bilaterally. IMPRESSION: No acute cardiopulmonary process.
[2020-12-12] MEDS ORDERED: SODIUM CHLORIDE 0.9% 1,000 ML IV SCH (17:45)
[2020-12-12] MEDS ORDERED: CALCIUM CHLORIDE 100 MG/ML 10 ML SYRINGE IVP STA (17:48)
[2020-12-12] MEDS ORDERED: NALOXONE 0.4 MG/ML 1 ML VIAL IV PRN (17:52)
[2020-12-12] MEDS ORDERED: FUROSEMIDE 10 MG/ML 4 ML VIAL IV STA (17:59)
[2020-12-12] MEDS ORDERED: HYDROcodone/APAP 5-325MG 1 EACH TAB PO PRN (19:15)
[2020-12-12 19:55] LABS: Glucose,Whole Blood 121 mg/dL (75-99)
[2020-12-12 21:07] LABS: Glucose,Whole Blood 77 mg/dL (75-99)
--- NOTE | 2020-12-12 21:18 | XR ---
EXAMINATION TYPE: XR chest 1V portable DATE OF EXAM: 12/12/2020 COMPARISON: 12/12/2020 HISTORY: Central line placement TECHNIQUE: Single view FINDINGS: Heart is normal. Lungs are clear of infiltrate. There is right side central venous catheter with tip in the superior vena cava. There is no heart failure. There is significant arthritic diseas e at both shoulder joints. IMPRESSION: No active cardiopulmonary disease. No change.
[2020-12-12 21:20] LABS: Calcium 10.1 mg/dL (8.4-10.2)
[2020-12-12 21:24] LABS: Potassium 6.2 mmol/L (3.5-5.1)
[2020-12-12] MEDS ORDERED: SODIUM CHLORIDE 3%(HYPERTONIC) 500 ML IV SCH (22:30)
[2020-12-12] MEDS: atenoloL 50 MG TAB PO SCH (23:25)
[2020-12-12 23:46] LABS: Sodium 120 mmol/L (137-145)
[2020-12-13 00:01] LABS: Creatinine,Urine Random 6.3 mg/dL
[2020-12-13] MEDS ORDERED: HYDROCORTISONE SUCCINATE 100 MG/2 ML VIAL IV SCH (02:00)
[2020-12-13 03:05] LABS: Calcium 9.4 mg/dL (8.4-10.2)
[2020-12-13 04:34] LABS: Basophils # (A) 0.1 k/uL (0-0.2); Basophils % (A) 0 %; Eosinophils # (A) 0.2 k/uL (0-0.7); Eosinophils % (A) 1 %; HCT 45.8 % (34.0-46.0); HGB 15.2 gm/dL (11.4-16.0); Lymphocytes # (A) 4.1 k/uL (1.0-4.8); Lymphocytes % (A) 16 %; MCH 31.1 pg (25.0-35.0); MCHC 33.2 g/dL (31.0-37.0); MCV 93.9 fL (80.0-100.0); Mean Platelet Volume 7.4; Monocytes # (A) 1.6 k/uL (0-1.0); Monocytes % (A) 6 %; Neutrophils # (A) 19.7 k/uL (1.3-7.7); Neutrophils % (A) 76 %; Platelet Count 258 k/uL (150-450); RBC 4.88 m/uL (3.80-5.40); RDW 14.8 % (11.5-15.5); WBC 26.1 k/uL (3.8-10.6)
[2020-12-13 04:46] LABS: Calcium 10.1 mg/dL (8.4-10.2)
[2020-12-13 04:48] LABS: Potassium 6.3 mmol/L (3.5-5.1)
[2020-12-13 05:33] LABS: Calcium 9.4 mg/dL (8.4-10.2)
[2020-12-13] MEDS: SODIUM CHLORIDE 0.9% 1,000 ML IV SCH (05:56)
[2020-12-13] MEDS ORDERED: BACLOFEN 10 MG TAB PO PRN (07:18)
--- NOTE | 2020-12-13 08:20 | P.CNPUL ---
History of Present Illness Consult date: 12/13/20 Requesting physician: Daniel Johns Reason for consult: other (Critical care management) Chief complaint: Altered mental status History of present illness: This is a pleasant 65-year-old female patient who has a history of multiple sclerosis diagnosed in 1997 and has been on Rebif for many years. She also has a history of hypertension, right breast cancer status post mastectomy followed by chemotherapy in 2011. She was recently here in the hospital for bilateral lower extremity weakness and edema. She was treated for an exacerbation of her multiple sclerosis high-dose steroids for 3 days and subsequently discharged on 11/12/2020. She presented here to the emergency room yesterday after a visiting nurse found her to have altered mental status. She had been actively hallucinating. She was found not to have any new weaknesses or sensory deficits. She was still on prednisone taper from her previous admission. He was found to be hypoglycemic with a glucose of 54 and given an amp of dextrose. White count of 24.2. Sodium of 119. Potassium 7.2. Chloride 88. Creatinine 1.22. Troponin 0.077. Urinalysis without evidence of infection. Urine drug screen positive for tricyclic antidepressants. Christianson virus not detected. She was initiated on 3% normal saline at 30 MLS per hour and admitted to the intensive care unit. Seen today in consultation in the ICU. She is currently awake and alert. She is continuously repeating "do not shoot me" though is able to state that she is in the hospital. She follows simple commands. She is moving her upper extremities. Some weakness on the left side which she usually wears a brace on. Lower extremities with no significant mobility and movement of the lower extremities due to her MS. Computed tomography scan of the brain revealed no acute bleed or mass effect. 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 His x-ray reveals no active cardiopulmonary disease. Today's labs reveal a white count 26.1. Hemoglobin 15.2. Neutrophils 19.7. Sodium 126. Potassium 5.0. Creatinine 1.04. He remains on Solu-Cortef 100 mg IV every 8 hours, 3% normal saline at 30 MLS per hour, Lovenox for DVT prophylaxis. Review of Systems REVIEW OF SYSTEMS: CONSTITUTIONAL: Altered mental status. Generalized weakness. Denies any recent significant weight loss or weight gain. EYES: Denies change in vision. EARS, NOSE, MOUTH, THROAT: Denies headaches, denies sore throat. CARDIOVASCULAR: Denies chest pain, palpitations or syncopal episodes. RESPIRATORY: Denies shortness of breath, cough, congestion or hemoptysis. GASTROINTESTINAL: Denies change in appetite, denies abdominal pain GENITOURINARY: Denies hematuria, denies infections. MUSKULOSKELETAL: Denies pain, denies swelling. INTEGUMENTARY: Denies rash, denies eczema. NEUROLOGICAL: Denies recent memory loss, no recent seizure activity. PSYCHIATRIC: Positive for anxiety. HEMATOLOGIC/LYMPHATIC: Denies anemia, denies enlarged lymph nodes. Past Medical History Past Medical History: Cancer, Hypertension, Musculoskeletal Disorder Additional Past Medical History / Comment(s): hx migraines, MS, edema lower legs and feet, walker- currently using wheelchair, brace on left arm, bladder urgency-wears briefs, hx breast cancer History of Any Multi-Drug Resistant Organisms: None Reported Past Surgical History: Appendectomy, Breast Surgery Additional Past Surgical History / Comment(s): 6 surgeries for breast cancer(rt lumpectomy/mastectomy/reconstructive), shiraz cataracts, Past Anesthesia/Blood Transfusion Reactions: Motion Sickness Smoking Status: Unknown if ever smoked - Past Family History Father Family Medical History: Cancer Sister(s) Family Medical History: Deep Vein Thrombosis (DVT) Medications and Allergies Home Medications Medication Instructions Recorded Confirmed Type Acetaminophen [Tylenol] 650 mg PO Q6H PRN 08/24/15 12/12/20 History Amitriptyline HCl [Elavil] 25 mg PO HS 08/24/15 12/12/20 History Anastrozole [Arimidex] 1 mg PO DAILY 08/24/15 12/12/20 History Baclofen 10 mg PO BID PRN 08/24/15 12/12/20 History Calcium Carbonate [Calcium] 600 mg PO DAILY 08/24/15 12/12/20 History Multivitamins, Thera [Multivitamin 1 tab PO DAILY 08/24/15 12/12/20 History (formulary)] Niacin 500 mg PO HS 08/24/15 12/12/20 History Pregabalin [Lyrica] 50 mg PO BID #60 cap 08/31/15 12/12/20 Rx Atenolol [Tenormin] 100 mg PO BID 10/18/20 12/12/20 History Docusate [Colace] 100 mg PO DAILY PRN 10/18/20 12/12/20 History Fesoterodine Fumarate [Toviaz] 8 mg PO DAILY 10/18/20 12/12/20 History HYDROcodone/APAP 5-325MG [[place] 1 tab PO BID PRN 10/18/20 12/12/20 History 5-325] Meloxicam [Mobic] 7.5 mg PO DAILY 10/18/20 12/12/20 History Rebif 44 Mcg/0.5 Ml 44 mcg SQ MOWEFR 10/18/20 12/12/20 History Spironolactone [Aldactone] 50 mg PO DAILY 10/18/20 12/12/20 History Alendronate Sodium [Fosamax] 70 mg PO MO 10/20/20 12/12/20 History Losartan Potassium [Cozaar] 100 mg PO DAILY 10/20/20 12/12/20 History Cholecalciferol (Vitamin D3) 75 mcg PO DAILY 11/06/20 12/12/20 History [Vitamin D3 (3000 Iu)] Potassium Gluconate 99 mg PO DAILY 12/12/20 12/12/20 History predniSONE See Taper PO DIRECTED 12/12/20 12/12/20 History Allergies Allergy/AdvReac Type Severity Reaction Status Date / Time No Known Allergies Allergy Verified 12/12/20 18:05 Physical Exam Vitals: Vital Signs Temp Pulse Resp BP Pulse Ox 12/13/20 06:00 89 53 H 88/71 97 12/13/20 05:00 89 15 88/71 99 12/13/20 04:00 98.6 F 88 15 95/66 98 12/13/20 03:00 88 22 94/65 98 12/13/20 02:00 83 18 95/67 99 12/13/20 01:00 84 20 101/71 98 12/13/20 00:00 98 F 88 18 102/74 98 12/12/20 23:00 81 35 H 99/68 100 12/12/20 22:00 86 37 H 136/97 98 12/12/20 21:08 97.6 F 86 28 H 100 12/12/20 20:24 98.1 F 87 17 151/86 98 12/12/20 20:00 18 12/12/20 19:37 80 18 107/72 96 12/12/20 19:19 78 12/12/20 19:06 72 12/12/20 18:01 85 17 113/70 12/12/20 16:30 72 17 156/103 99 12/12/20 16:00 71 18 178/127 12/12/20 15:48 98.6 F 72 18 179/106 96 Intake and Output 12/12/20 12/13/20 12/13/20 22:59 06:59 14:59 Intake Total 90 Output Total 900 1000 100 Balance -900 -910 -100 Intake: Intake, IV Titration 90 Amount Sodium Chloride 3%( 90 Hypertonic) 500 ml @ 30 mls/hr IV .[id number] [facility] Rx #:[id number] Output: Urine 900 1000 100 Straight 900 Other: Weight 95.254 kg 75 kg GENERAL EXAM: Alert, pleasant 65-year-old female patient, altered, oriented times one, on 2 L nasal cannula, comfortable in no apparent distress. HEAD: Normocephalic. EYES: Normal reaction of pupils, equal size. NOSE: Clear with pink turbinates. THROAT: No erythema or exudates. NECK: No masses, no JVD. CHEST: No chest wall deformity. LUNGS: Equal air entry with no crackles, wheeze, rhonchi or dullness. CVS: S1 and S2 normal with no audible murmur, regular rhythm. ABDOMEN: No hepatosplenomegaly, normal bowel sounds, no guarding or rigidity. SPINE: No scoliosis or deformity SKIN: No rashes CENTRAL NERVOUS SYSTEM: History of MS with lower extremity limited mobility. Tone is normal in all 4 extremities. EXTREMITIES: There is 2+ peripheral edema. No clubbing, no cyanosis. Peripheral pulses are intact. Results - Laboratory Findings CBC and BMP: 12/13/20 04:26 12/13/20 05:07 PT/INR, D-dimer PT 9.6 sec (9.0-12.0) 12/12/20 16:49 INR 0.9 (<1.2) 12/12/20 16:49 Abnormal lab findings: Abnormal Labs 12/12/20 12/12/20 12/12/20 15:51 15:52 16:49 WBC 24.2 H Neutrophils # 20.7 H Monocytes # APTT Sodium Potassium Chloride Carbon Dioxide BUN Creatinine Glucose POC Glucose (mg/dL) 48 L 54 L Osmolality AST ALT Creatine Kinase Troponin I Urine Appearance Urine Glucose (UA) Urine Mucus U Tricyclic Antidepress 12/12/20 12/12/20 12/12/20 16:49 16:49 16:49 WBC Neutrophils # Monocytes # APTT 20.4 L Sodium 119 L* Potassium 7.2 H* Chloride 91 L Carbon Dioxide 21 L BUN 70 H Creatinine 1.22 H Glucose POC Glucose (mg/dL) Osmolality AST 38 H ALT 76 H Creatine Kinase 28 L Troponin I Urine Appearance Cloudy H Urine Glucose (UA) 3+ H Urine Mucus Rare H U Tricyclic Antidepress Detected H 12/12/20 12/12/20 12/12/20 16:49 16:53 19:54 WBC Neutrophils # Monocytes # APTT Sodium Potassium Chloride Carbon Dioxide BUN Creatinine Glucose POC Glucose (mg/dL) 112 H 121 H Osmolality AST ALT Creatine Kinase Troponin I 0.077 H* Urine Appearance Urine Glucose (UA) Urine Mucus U Tricyclic Antidepress 12/12/20 12/12/20 12/12/20 20:30 20:30 22:50 WBC Neutrophils # Monocytes # APTT Sodium 119 L* 120 L Potassium 6.2 H* Chloride 88 L Carbon Dioxide BUN 63 H Creatinine 1.09 H Glucose 122 H POC Glucose (mg/dL) Osmolality 276 L AST ALT Creatine Kinase Troponin I Urine Appearance Urine Glucose (UA) Urine Mucus U Tricyclic Antidepress 12/13/20 12/13/20 12/13/20 02:34 04:26 04:26 WBC 26.1 H Neutrophils # 19.7 H Monocytes # 1.6 H APTT Sodium 126 L 125 L Potassium 6.3 H* Chloride 90 L 93 L Carbon Dioxide 21 L BUN 61 H 68 H Creatinine 1.05 H Glucose POC Glucose (mg/dL) Osmolality AST ALT Creatine Kinase Troponin I Urine Appearance Urine Glucose (UA) Urine Mucus U Tricyclic Antidepress 12/13/20 05:07 WBC Neutrophils # Monocytes # APTT Sodium 126 L Potassium Chloride 91 L Carbon Dioxide BUN 62 H Creatinine Glucose POC Glucose (mg/dL) Osmolality AST ALT Creatine Kinase Troponin I Urine Appearance Urine Glucose (UA) Urine Mucus U Tricyclic Antidepress - Diagnostic Findings Chest x-ray: image reviewed Assessment and Plan Assessment: 1 Altered mental status suspect secondary to electrolyte abnormalities including hyponatremia presenting at 119. Currently 126 2 Hyponatremia suspect hypervolemia 3 Hyperkalemia 4 Troponin leak 5 Leukocytosis of unclear etiology, possible steroid effect 6 Multiple sclerosis 7 History of hypertension 8 History of breast cancer with previous mastectomy status post chemotherapy Plan: The patient was seen and evaluated by Dr. Lindsey Computed tomography scan, chest x-ray, labs reviewed Will discontinue hypertonic solution Continue Solu-Cortef Reconcile home medications Hold hypertensive agents Check pro calcitonin Continue to monitor and correct electrolytes Echocardiogram Advance diet We will continue to follow and make further recommendations based on her clinical status Time with Patient: Greater than 30
--- NOTE | 2020-12-13 08:39 | P.NPCON ---
History of Present Illness - Reason for Consult acute renal failure, hyperkalemia - History of Present Illness Reason for consultation: Acute kidney injury and electrolyte imbalance History of present illness: Patient is a 65-year-old female seen in renal consultation for acute kidney injury and electrolyte imbalance. Patient's sodium level was 119 on admission. She did receive 3% for a few hours overnight. Sodium level this morning was 126. Potassium level on admission was 7.2 and is down to 5.0 this morning. Patient was taking potassium supplementation as well as meloxicam, losartan and spironolactone at home. Patient is currently confused and as such she was brought to the hospital. She is not a reliable historian at this time. Creatinine was 1.22 on admission and is 1.04 today. She did receive a dose of IV Lasix 40 mg once as well. Urine output overnight has been about [address] of the brain revealed no acute changes. Remote lacunar infarcts were noted. No active cardiopulmonary disease noted on chest x-ray. Vital signs are stable. Blood pressures on the lower side. General: The patient appeared well nourished and normally developed. HEENT: Head exam is unremarkable. Neck is without jugular venous distension. LUNGS: Breath sounds decreased. HEART: Rate and Rhythm are regular. ABDOMEN: Soft, no distention. EXTREMITITES: Trace edema. Past Medical History Past Medical History: Cancer, Hypertension, Musculoskeletal Disorder Additional Past Medical History / Comment(s): hx migraines, MS, edema lower legs and feet, walker- currently using wheelchair, brace on left arm, bladder urgency-wears briefs, hx breast cancer History of Any Multi-Drug Resistant Organisms: None Reported Past Surgical History: Appendectomy, Breast Surgery Additional Past Surgical History / Comment(s): 6 surgeries for breast cancer(rt lumpectomy/mastectomy/reconstructive), shiraz cataracts, Past Anesthesia/Blood Transfusion Reactions: Motion Sickness Smoking Status: Unknown if ever smoked - Past Family History Father Family Medical History: Cancer Sister(s) Family Medical History: Deep Vein Thrombosis (DVT) Medications and Allergies Home Medications Medication Instructions Recorded Confirmed Type Acetaminophen [Tylenol] 650 mg PO Q6H PRN 08/24/15 12/12/20 History Amitriptyline HCl [Elavil] 25 mg PO HS 08/24/15 12/12/20 History Anastrozole [Arimidex] 1 mg PO DAILY 08/24/15 12/12/20 History Baclofen 10 mg PO BID PRN 08/24/15 12/12/20 History Calcium Carbonate [Calcium] 600 mg PO DAILY 08/24/15 12/12/20 History Multivitamins, Thera [Multivitamin 1 tab PO DAILY 08/24/15 12/12/20 History (formulary)] Niacin 500 mg PO HS 08/24/15 12/12/20 History Pregabalin [Lyrica] 50 mg PO BID #60 cap 08/31/15 12/12/20 Rx Atenolol [Tenormin] 100 mg PO BID 10/18/20 12/12/20 History Docusate [Colace] 100 mg PO DAILY PRN 10/18/20 12/12/20 History Fesoterodine Fumarate [Toviaz] 8 mg PO DAILY 10/18/20 12/12/20 History HYDROcodone/APAP 5-325MG [[place] 1 tab PO BID PRN 10/18/20 12/12/20 History 5-325] Meloxicam [Mobic] 7.5 mg PO DAILY 10/18/20 12/12/20 History Rebif 44 Mcg/0.5 Ml 44 mcg SQ MOWEFR 10/18/20 12/12/20 History Spironolactone [Aldactone] 50 mg PO DAILY 10/18/20 12/12/20 History Alendronate Sodium [Fosamax] 70 mg PO MO 10/20/20 12/12/20 History Losartan Potassium [Cozaar] 100 mg PO DAILY 10/20/20 12/12/20 History Cholecalciferol (Vitamin D3) 75 mcg PO DAILY 11/06/20 12/12/20 History [Vitamin D3 (3000 Iu)] Potassium Gluconate 99 mg PO DAILY 12/12/20 12/12/20 History predniSONE See Taper PO DIRECTED 12/12/20 12/12/20 History Allergies Allergy/AdvReac Type Severity Reaction Status Date / Time No Known Allergies Allergy Verified 12/12/20 18:05 Physical Exam Vitals: Vital Signs Temp Pulse Resp BP Pulse Ox 12/13/20 08:00 92 20 82/61 95 12/13/20 07:00 96 14 84/57 98 12/13/20 06:00 89 53 H 88/71 97 12/13/20 05:00 89 15 88/71 99 12/13/20 04:00 98.6 F 88 15 95/66 98 12/13/20 03:00 88 22 94/65 98 12/13/20 02:00 83 18 95/67 99 12/13/20 01:00 84 20 101/71 98 12/13/20 00:00 98 F 88 18 102/74 98 12/12/20 23:00 81 35 H 99/68 100 12/12/20 22:00 86 37 H 136/97 98 12/12/20 21:08 97.6 F 86 28 H 100 12/12/20 20:24 98.1 F 87 17 151/86 98 12/12/20 20:00 18 12/12/20 19:37 80 18 107/72 96 12/12/20 19:19 78 12/12/20 19:06 72 12/12/20 18:01 85 17 113/70 12/12/20 16:30 72 17 156/103 99 12/12/20 16:00 71 18 178/127 12/12/20 15:48 98.6 F 72 18 179/106 96 Intake and Output 12/12/20 12/13/20 12/13/20 22:59 06:59 14:59 Intake Total 90 Output Total 900 1000 100 Balance -900 -910 -100 Intake: Intake, IV Titration 90 Amount Sodium Chloride 3%( 90 Hypertonic) 500 ml @ 30 mls/hr IV .[id number] [facility] Rx #:[id number] Output: Urine 900 1000 100 Straight 900 Other: Weight 95.254 kg 75 kg Results - Lab Results Most recent lab results Calcium 9.4 mg/dL (8.4-10.2) 12/13/20 05:07 12/13/20 04:26 12/13/20 05:07 Assessment and Plan Plan: Assessment: 1. Hypervolemic hyponatremia improved with IV Lasix. Sodium level CXIX on admission and is 126 today. Urine osmolality 284. 2. Hyperkalemia secondary to acute kidney injury, potassium supplementation, nonsteroidals, losartan and spironolactone. Improved. 3. Acute kidney injury mostly prerenal. Improved. UA benign. 4. Encephalopathy likely related to electrolyte imbalance. Rule out infection. Neurology will be consulted. 5. History of MS. 6. Hypotension. Rule out sepsis. Cortisol level was normal. She is receiving stress dose Solu-Cortef. Plan: 3% has been discontinued. Avoid further correction of sodium level at this time. Check BMP now. If sodium rises further, I will add D5W. Follow-up cultures. Follow-up echocardiogram. Continue to monitor renal function and urine output. Check TSH. Thank you for the consultation. I will continue to follow the patient with you during her hospital stay.
[2020-12-13] MEDS: HYDROCORTISONE SUCCINATE 100 MG/2 ML VIAL IV SCH ×3 (09:22→23:29)
[2020-12-13] MEDS: ENOXAPARIN 40 MG/0.4 ML SYRINGE SQ SCH (09:23)
[2020-12-13 09:29] LABS: Calcium 9.1 mg/dL (8.4-10.2); Magnesium 2.1 mg/dL (1.6-2.3); Potassium 5.4 mmol/L (3.5-5.1)
[2020-12-13] MEDS: PREGABALIN 50 MG CAP PO SCH ×2 (09:33→21:11)
[2020-12-13] MEDS: CHOLECALCIFEROL 25 MCG (1000 IU) TABLET PO SCH (09:33)
[2020-12-13] MEDS: CALCIUM CARBONATE 500 MG CHEWABLE PO SCH (09:33)
[2020-12-13] MEDS: ANASTROZOLE 1 MG TAB PO SCH (09:33)
[2020-12-13] MEDS: atenoloL 50 MG TAB PO SCH ×2 (09:33→21:10)
[2020-12-13] MEDS ORDERED: SODIUM CHLORIDE 0.9% 500 ML IV SCH (09:45)
[2020-12-13] MEDS ORDERED: DEXTROSE 5% IN WATER 1,000 ML IV ONE (09:46)
[2020-12-13] MEDS ORDERED: INSULIN REGULAR 100 UNIT/ML VIAL IV ONE (09:54)
[2020-12-13] MEDS ORDERED: DEXTROSE 50% SYRINGE 50 ML IVP STA (09:54)
[2020-12-13 13:38] LABS: Calcium 8.6 mg/dL (8.4-10.2); Potassium 4.8 mmol/L (3.5-5.1)
--- NOTE | 2020-12-13 14:53 | CONS ---
CONSULTATION HISTORY OF PRESENT ILLNESS: This is a 65-year-old lady with a past medical history of multiple sclerosis, came into the emergency room, brought in by EMS with altered mentation, totally confused, unable to know where she is. There is a possibility of a stroke was considered. However, upon evaluation in the ER, her electrolytes were quite abnormal with a sodium of 119 and there was mild troponin elevation. I was asked to see her mainly because of electrolyte abnormalities and elevated troponin. The patient is unable to give me any meaningful history. She is not in any distress. She received some 3 percent/hypertonic saline and her sodium came up to 126 this morning. I am recommending some IV fluid bolus instead. We will give 50 mL of 3% saline to see how she does and will check another additional troponin level and also an echocardiogram. She has history of previous breast cancer with mastectomy, chemotherapy in 2011 and also has had generalized weakness and had an exacerbation of multiple sclerosis and was treated with high-dose steroids for 3 days. Her hypokalemia has been corrected somewhat and she seems to be doing a bit better in terms of electrolyte, but overall there is some hallucination and complete lack of orientation. CAT scan of the brain did not reveal any significant abnormalities. There is a remote infarct noted on the on the left side. Clinical picture does not suggest that of any myocardial ischemia. Troponin elevation is noted, but I do not believe it represents a myocardial injury. EKG revealed a sinus mechanism with a leftward axis, IVCD, nonspecific ST abnormality. PAST MEDICAL HISTORY: 1. Multiple sclerosis with recent exacerbation, was placed on high-dose steroids. 2. History of breast cancer with previous mastectomy and chemotherapy. 3. Unable to obtain information whether patient has any other relevant histories. Patient is not a smoker. Does not consume alcohol. PHYSICAL EXAMINATION: On examination, blood pressure is about 88 systolic, pulse rate is about 84. HEENT: Unremarkable. Fundus was not examined by me. NECK is supple. There is no JVD. I do not hear a carotid bruit. HEART exam reveals S1, S2 with a short systolic murmur at the base. LUNGS reveal diminished air entry. ABDOMEN is soft. Lower EXTREMITIES reveal diminished pulses. CENTRAL NERVOUS SYSTEM assessment was not possible. LABORATORY DATA: Suggests that she came in with hypo natremia, which seems to have improved. She also had hyperkalemia that has also shown some modest improvement. Troponin is 0.077. I do not believe we are dealing with any acute myocardial injury. IMPRESSION: 1. Severe electrolyte imbalance. 2. Rule out any cerebrovascular accident. 3. Severe hyponatremia. 4. Elevated troponin, not suggestive of myocardial injury. 5. History of breast cancer. RECOMMENDATIONS: I am recommending that we will give 50 mL/hour of 3% saline until seen by Nephrology. I will get additional troponin level and obtain echocardiogram. Await further input from Dr. Lindsey. MMODL / IJN: [id number] /
--- NOTE | 2020-12-13 17:03 | P.CNNES ---
History of Present Illness Consult date: 12/13/20 History of Present Illness: The patient is a 65-year-old female who is seen in neurologic consultation on December 13, 2020, via teleneurology. The chart has been reviewed. This patient is known to me. I've seen her in previous admissions, for exacerbation of multiple sclerosis. The patient's significant other is present at the bedside, at the time of the evaluation. He is able to provide some history. He notes that the patient has been having increasing agitation over the past 24 hours or so. He reports that the patient's symptoms began yesterday morning. She became confused. In addition to confusion, the patient reportedly stopped taking her medications and stopped walking. The patient was recently admitted to [facility] and treated for an exacerbation of her multiple sclerosis. Apparently she continued to be taking the tapering dose of prednisone. Past Medical History Past Medical History: Cancer, Hypertension, Musculoskeletal Disorder Additional Past Medical History / Comment(s): hx migraines, MS, edema lower legs and feet, walker- currently using wheelchair, brace on left arm, bladder urgency-wears briefs, hx breast cancer History of Any Multi-Drug Resistant Organisms: None Reported Past Surgical History: Appendectomy, Breast Surgery Additional Past Surgical History / Comment(s): 6 surgeries for breast cancer(rt lumpectomy/mastectomy/reconstructive), shiraz cataracts, Past Anesthesia/Blood Transfusion Reactions: Motion Sickness Smoking Status: Unknown if ever smoked - Past Family History Father Family Medical History: Cancer Sister(s) Family Medical History: Deep Vein Thrombosis (DVT) Medications and Allergies Home Medications Medication Instructions Recorded Confirmed Type Acetaminophen [Tylenol] 650 mg PO Q6H PRN 08/24/15 12/12/20 History Amitriptyline HCl [Elavil] 25 mg PO HS 08/24/15 12/12/20 History Anastrozole [Arimidex] 1 mg PO DAILY 08/24/15 12/12/20 History Baclofen 10 mg PO BID PRN 08/24/15 12/12/20 History Calcium Carbonate [Calcium] 600 mg PO DAILY 08/24/15 12/12/20 History Multivitamins, Thera [Multivitamin 1 tab PO DAILY 08/24/15 12/12/20 History (formulary)] Niacin 500 mg PO HS 08/24/15 12/12/20 History Pregabalin [Lyrica] 50 mg PO BID #60 cap 08/31/15 12/12/20 Rx Atenolol [Tenormin] 100 mg PO BID 10/18/20 12/12/20 History Docusate [Colace] 100 mg PO DAILY PRN 10/18/20 12/12/20 History Fesoterodine Fumarate [Toviaz] 8 mg PO DAILY 10/18/20 12/12/20 History HYDROcodone/APAP 5-325MG [[place] 1 tab PO BID PRN 10/18/20 12/12/20 History 5-325] Meloxicam [Mobic] 7.5 mg PO DAILY 10/18/20 12/12/20 History Rebif 44 Mcg/0.5 Ml 44 mcg SQ MOWEFR 10/18/20 12/12/20 History Spironolactone [Aldactone] 50 mg PO DAILY 10/18/20 12/12/20 History Alendronate Sodium [Fosamax] 70 mg PO MO 10/20/20 12/12/20 History Losartan Potassium [Cozaar] 100 mg PO DAILY 10/20/20 12/12/20 History Cholecalciferol (Vitamin D3) 75 mcg PO DAILY 11/06/20 12/12/20 History [Vitamin D3 (3000 Iu)] Potassium Gluconate 99 mg PO DAILY 12/12/20 12/12/20 History predniSONE See Taper PO DIRECTED 12/12/20 12/12/20 History Allergies Allergy/AdvReac Type Severity Reaction Status Date / Time No Known Allergies Allergy Verified 12/12/20 18:05 Physical Examination - Vital Signs Vital Signs: Vital Signs Temp Pulse Resp BP Pulse Ox 12/13/20 12:02 20 12/13/20 12:00 99.7 F H 98 20 85/54 97 12/13/20 11:00 98 20 85/54 97 12/13/20 10:00 96 19 82/69 96 12/13/20 09:00 99.7 F H 94 15 82/69 96 12/13/20 08:00 92 20 82/61 95 12/13/20 07:45 20 12/13/20 07:00 96 14 84/57 98 12/13/20 06:00 89 53 H 88/71 97 12/13/20 05:00 89 15 88/71 99 12/13/20 04:00 98.6 F 88 15 95/66 98 12/13/20 03:00 88 22 94/65 98 12/13/20 02:00 83 18 95/67 99 12/13/20 01:00 84 20 101/71 98 12/13/20 00:00 98 F 88 18 102/74 98 12/12/20 23:00 81 35 H 99/68 100 12/12/20 22:00 86 37 H 136/97 98 12/12/20 21:08 97.6 F 86 28 H 100 12/12/20 20:24 98.1 F 87 17 151/86 98 12/12/20 20:00 18 12/12/20 19:37 80 18 107/72 96 12/12/20 19:19 78 12/12/20 19:06 72 12/12/20 18:01 85 17 113/70 12/12/20 16:30 72 17 156/103 99 12/12/20 16:00 71 18 178/127 12/12/20 15:48 98.6 F 72 18 179/106 96 Intake and Output 12/12/20 12/13/20 12/13/20 22:59 06:59 14:59 Intake Total 90 242 Output Total 900 1000 395 Balance -900 -910 -153 Intake: IV 242 0.9 Pressure Bag 12 Dextrose 5% in Water 1, 200 000 ml @ 100 mls/hr IV . Q10H [facility] Rx#:[id number] Sodium Chloride 0.9% 1, 30 000 ml @ 10 mls/hr IV . Q24H [facility] Rx#:[id number] Intake, IV Titration 90 Amount Sodium Chloride 3%( 90 Hypertonic) 500 ml @ 30 mls/hr IV .[id number] [facility] Rx #:[id number] Output: Urine 900 1000 395 Straight 900 Other: Voiding Method Indwelling Catheter Weight 95.254 kg 75 kg Examination is limited Gen.: The patient is reclining in the bed. She is in distress. She is agitated and repeatedly states "Vinicio don't do this to me". The patient's vital signs are stable HEENT: Head is atraumatic, normocephalic. Fundus not visualized. There is no scleral icterus. Neck: Supple without carotid bruits Heart: Regular rate and rhythm Lungs: Clear to auscultation Extremities: The feet are swollen bilaterally and dusky in coloration. They're cool to the touch. Neurological examination Mental status: The patient is awake. She repeatedly states in a very clear voice, "Vinicio don't do this". The patient is poorly cooperative with the examination. She does not answer any questions. She does not follow any instructions. Cranial nerves: Pupils are 5 mm, equal and reactive. The patient does blink to visual threat. There is no obvious facial asymmetry. Motor: The patient does not follow instructions for strength testing. She does provide resistance to passive movement of her upper extremities. There is some reflex movement of her lower extremities. Sensation: There is no withdrawal from noxious stimulation Deep tendon reflexes: Patellar reflexes are absent. Plantar responses are extensor bilaterally. Results - Laboratory Findings CBC and BMP: 12/13/20 04:26 12/13/20 12:50 Abnormal Lab Findings: Abnormal Labs 12/12/20 12/12/20 12/12/20 15:51 15:52 16:49 WBC 24.2 H Neutrophils # 20.7 H Monocytes # APTT Sodium Potassium Chloride Carbon Dioxide BUN Creatinine Glucose POC Glucose (mg/dL) 48 L 54 L Osmolality AST ALT Creatine Kinase Troponin I Urine Appearance Urine Glucose (UA) Urine Mucus U Tricyclic Antidepress 12/12/20 12/12/20 12/12/20 16:49 16:49 16:49 WBC Neutrophils # Monocytes # APTT 20.4 L Sodium 119 L* Potassium 7.2 H* Chloride 91 L Carbon Dioxide 21 L BUN 70 H Creatinine 1.22 H Glucose POC Glucose (mg/dL) Osmolality AST 38 H ALT 76 H Creatine Kinase 28 L Troponin I Urine Appearance Cloudy H Urine Glucose (UA) 3+ H Urine Mucus Rare H U Tricyclic Antidepress Detected H 12/12/20 12/12/20 12/12/20 16:49 16:53 19:54 WBC Neutrophils # Monocytes # APTT Sodium Potassium Chloride Carbon Dioxide BUN Creatinine Glucose POC Glucose (mg/dL) 112 H 121 H Osmolality AST ALT Creatine Kinase Troponin I 0.077 H* Urine Appearance Urine Glucose (UA) Urine Mucus U Tricyclic Antidepress 12/12/20 12/12/20 12/12/20 20:30 20:30 22:50 WBC Neutrophils # Monocytes # APTT Sodium 119 L* 120 L Potassium 6.2 H* Chloride 88 L Carbon Dioxide BUN 63 H Creatinine 1.09 H Glucose 122 H POC Glucose (mg/dL) Osmolality 276 L AST ALT Creatine Kinase Troponin I Urine Appearance Urine Glucose (UA) Urine Mucus U Tricyclic Antidepress 12/13/20 12/13/20 12/13/20 02:34 04:26 04:26 WBC 26.1 H Neutrophils # 19.7 H Monocytes # 1.6 H APTT Sodium 126 L 125 L Potassium 6.3 H* Chloride 90 L 93 L Carbon Dioxide 21 L BUN 61 H 68 H Creatinine 1.05 H Glucose POC Glucose (mg/dL) Osmolality AST ALT Creatine Kinase Troponin I Urine Appearance Urine Glucose (UA) Urine Mucus U Tricyclic Antidepress 12/13/20 12/13/20 12/13/20 05:07 08:51 08:51 WBC Neutrophils # Monocytes # APTT Sodium 126 L 128 L Potassium 5.4 H Chloride 91 L 93 L Carbon Dioxide BUN 62 H 62 H Creatinine 1.09 H Glucose POC Glucose (mg/dL) Osmolality AST ALT Creatine Kinase Troponin I 0.877 H* Urine Appearance Urine Glucose (UA) Urine Mucus U Tricyclic Antidepress Assessment and Plan Assessment: 1. Delirium/acute toxic metabolic encephalopathy, multifactorial: Hyponatremia, hyperkalemia, acute kidney injury, positive blood culture, leukocytosis 2. History of multiple sclerosis Plan: 1. Slow correction of hyponatremia 2. Check cortisol level, as steroids may not be necessary in light of tapering dose *3. Hold patient's Rebif at this time 4. Consider Seroquel 25 mg, for agitation Time with Patient: Greater than 30 (spent 40 minutes with patient via teleneurology)
[2020-12-13 17:22] LABS: Calcium 8.7 mg/dL (8.4-10.2); Potassium 4.8 mmol/L (3.5-5.1)
[2020-12-13] MEDS ORDERED: VANCOMYCIN IV PER PHARMACY 1 EACH MISC MISCELLANE PRN (17:29)
[2020-12-13] MEDS: VANCOMYCIN 1,500 MG in SODIUM CHLORIDE 0.9% 250 ML IVPB SCH (18:09)
--- NOTE | 2020-12-13 20:25 | P.HPIM ---
History of Present Illness H&P Date: 12/13/20 Chief Complaint: Patient repeating herself don't shoot me History of presenting complaint: This is a 65-year-old patient, who follows with Dr. Daniel Johns. Patient has known multiple sclerosis being followed by , neurologist. At her baseline patient uses a wheelchair. Has urine urgency. Also has known hypertension. Patient for last one half months as a sacral lumbar and buttock bedsores stage II. Patient's versus dressing of the same. Patient also has a left arm brace. Patient is incontinent of urine. Patient's appetite is good. No fever no chills. Patient is brought in the hospital by the as she gets repeating at home and wanted, don't shoot me inverted, please don't let me go:. Patient has been resistant to care in the ICU. She will don't answer any questions fully. Patient's at the bedside is very attentive to her. Patient had hyponatremia and hyperkalemia. In the ER and given dextrose, Regular Insulin, s odium bicarbonate, Kayexalate. Patient was initially given hypertonic saline. Review of systems: GEN.: Tired EYES: None HEENT: None NECK: None RESPIRATORY: None CARDIOVASCULAR: None GASTROINTESTINAL: None GENITOURINARY: Incontinent MUSCULOSKELETAL: None LYMPHATICS: None HEMATOLOGICAL: None PSYCHIATRY: Appears anxious, as above NEUROLOGICAL: Weakness in lower extremity Past medical history to include: Hypertension, migraine, multiple sclerosis, lower extremity edema, does use a wheelchair, brace on the left arm, urinary urgency, history of breast cancer Social history: Patient stopped smoking in 1992. No alcohol. . Physical examination: VITAL SIGNS: 98.6, 72, 18, 1 56 x 1 03, 96% room air GENERAL: BMI 27.5, reclining in bed, anxious. EYES: Pupils equal. Conjunctiva normal. HEENT: External appearance of nose and ears normal, oral cavity grossly normal. NECK: JVD not raised; masses not palpable. HEART: First and second heart sounds are normal; some edema. LUNGS: Respiratory rate normal; decreased breath sounds. ABDOMEN: Soft, nontender, liver spleen not palpable, no masses palpable. PSYCH: Difficult to assess,l. NEUROLOGICAL: [Cranial nerves grossly intact; no facial asymmetry, decreased on lower extremity LYMPHATICS: No lymph nodes palpable in the axilla and neck INVESTIGATIONS, reviewed in the clinical context: WBC 26.1 hemoglobin 15.2 platelets 258 Sodium 125 potassium 6.3 bun 68 creatinine 1.05 Troponin I 0.877 TSH 3.0 EKG tracing personally reviewed by me-normal sinus rhythm, interventricular ventricular block Chest x-ray film personally reviewed by me-lung paredes clear Computed tomography scan brain: Nothing acute UA 3+ glucose Previous labs: 11/08/2020: Potassium 3.9 creatinine 0.9 Assessment and plan: -Significant hypervolemia hyponatremia. Given IV Lasix. Follow labs -Severe hyperkalemia due to acute kidney injury. Potassium supplements and NSAIDs. Given IV fluids, insulin, bicarbonate. Repeat labs Possible adrenal insufficiency. Given IV hydrocortisone -Acute kidney injury, prerenal IV fluids -Acute delirium likely multifactorial/from electrolyte abnormalities. If no improvement with electrolytel consult psychiatry -Chronic multiple sclerosis. No exacerbation. Patient follows with Dr. Dupree -Chronic medical debility At the baseline uses a wheelchair -Chronic urinary incontinence Villatoro catheter -Multiple wounds on the sacrum, lumbar area, buttocks for about a half months Consult wound care -Positive blood cultures with Staphylococcus epidermidis, likely contaminant Currently on vancomycin -Troponin anemia likely from hemodynamic mismatch. Highly doubt acute coronary syndrome. Follow electrolytes closely. Consultation to nephrology, leather lacer Past Medical History Past Medical History: Cancer, Hypertension, Musculoskeletal Disorder Additional Past Medical History / Comment(s): hx migraines, MS, edema lower legs and feet, walker- currently using wheelchair, brace on left arm, bladder urgency-wears briefs, hx breast cancer History of Any Multi-Drug Resistant Organisms: None Reported Past Surgical History: Appendectomy, Breast Surgery Additional Past Surgical History / Comment(s): 6 surgeries for breast cancer(rt lumpectomy/mastectomy/reconstructive), shiraz cataracts, Past Anesthesia/Blood Transfusion Reactions: Motion Sickness Smoking Status: Unknown if ever smoked - Past Family History Father Family Medical History: Cancer Sister(s) Family Medical History: Deep Vein Thrombosis (DVT) Medications and Allergies Home Medications Medication Instructions Recorded Confirmed Type Acetaminophen [Tylenol] 650 mg PO Q6H PRN 08/24/15 12/12/20 History Amitriptyline HCl [Elavil] 25 mg PO HS 08/24/15 12/12/20 History Anastrozole [Arimidex] 1 mg PO DAILY 08/24/15 12/12/20 History Baclofen 10 mg PO BID PRN 08/24/15 12/12/20 History Calcium Carbonate [Calcium] 600 mg PO DAILY 08/24/15 12/12/20 History Multivitamins, Thera [Multivitamin 1 tab PO DAILY 08/24/15 12/12/20 History (formulary)] Niacin 500 mg PO HS 08/24/15 12/12/20 History Pregabalin [Lyrica] 50 mg PO BID #60 cap 08/31/15 12/12/20 Rx Atenolol [Tenormin] 100 mg PO BID 10/18/20 12/12/20 History Docusate [Colace] 100 mg PO DAILY PRN 10/18/20 12/12/20 History Fesoterodine Fumarate [Toviaz] 8 mg PO DAILY 10/18/20 12/12/20 History HYDROcodone/APAP 5-325MG [[place] 1 tab PO BID PRN 10/18/20 12/12/20 History 5-325] Meloxicam [Mobic] 7.5 mg PO DAILY 10/18/20 12/12/20 History Rebif 44 Mcg/0.5 Ml 44 mcg SQ MOWEFR 10/18/20 12/12/20 History Spironolactone [Aldactone] 50 mg PO DAILY 10/18/20 12/12/20 History Alendronate Sodium [Fosamax] 70 mg PO MO 10/20/20 12/12/20 History Losartan Potassium [Cozaar] 100 mg PO DAILY 10/20/20 12/12/20 History Cholecalciferol (Vitamin D3) 75 mcg PO DAILY 11/06/20 12/12/20 History [Vitamin D3 (3000 Iu)] Potassium Gluconate 99 mg PO DAILY 12/12/20 12/12/20 History predniSONE See Taper PO DIRECTED 12/12/20 12/12/20 History Allergies Allergy/AdvReac Type Severity Reaction Status Date / Time No Known Allergies Allergy Verified 12/12/20 18:05 Physical Exam Vitals: Vital Signs Temp Pulse Resp BP Pulse Ox 12/13/20 11:00 98 20 85/54 97 12/13/20 10:00 96 19 82/69 96 12/13/20 09:00 99.7 F H 94 15 82/69 96 12/13/20 08:00 92 20 82/61 95 12/13/20 07:00 96 14 84/57 98 12/13/20 06:00 89 53 H 88/71 97 12/13/20 05:00 89 15 88/71 99 12/13/20 04:00 98.6 F 88 15 95/66 98 12/13/20 03:00 88 22 94/65 98 12/13/20 02:00 83 18 95/67 99 12/13/20 01:00 84 20 101/71 98 12/13/20 00:00 98 F 88 18 102/74 98 12/12/20 23:00 81 35 H 99/68 100 12/12/20 22:00 86 37 H 136/97 98 12/12/20 21:08 97.6 F 86 28 H 100 12/12/20 20:24 98.1 F 87 17 151/86 98 12/12/20 20:00 18 12/12/20 19:37 80 18 107/72 96 12/12/20 19:19 78 12/12/20 19:06 72 12/12/20 18:01 85 17 113/70 12/12/20 16:30 72 17 156/103 99 12/12/20 16:00 71 18 178/127 12/12/20 15:48 98.6 F 72 18 179/106 96 Intake and Output 12/12/20 12/13/20 12/13/20 22:59 06:59 14:59 Intake Total 90 139 Output Total 900 1000 335 Balance -900 -910 -196 Intake: IV 139 0.9 Pressure Bag 9 Dextrose 5% in Water 1, 100 000 ml @ 100 mls/hr IV . Q10H [facility] Rx#:[id number] Sodium Chloride 0.9% 1, 30 000 ml @ 10 mls/hr IV . Q24H [facility] Rx#:[id number] Intake, IV Titration 90 Amount Sodium Chloride 3%( 90 Hypertonic) 500 ml @ 30 mls/hr IV .[id number] [facility] Rx #:[id number] Output: Urine 900 1000 335 Straight 900 Other: Weight 95.254 kg 75 kg Results CBC & Chem 7: 12/13/20 04:26 12/13/20 16:45 Labs: Abnormal Lab Results - Last 24 Hours (Table) 12/12/20 12/12/20 12/12/20 Range/Units 15:51 15:52 16:49 WBC 24.2 H (3.8-10.6) k/uL Neutrophils # 20.7 H (1.3-7.7) k/uL Monocytes # (0-1.0) k/uL APTT (22.0-30.0) sec Sodium (137-145) mmol/L Potassium (3.5-5.1) mmol/L Chloride (98-107) mmol/L Carbon Dioxide (22-30) mmol/L BUN (7-17) mg/dL Creatinine (0.52-1.04) mg/dL Glucose (74-99) mg/dL POC Glucose (mg/dL) 48 L 54 L (75-99) mg/dL Osmolality (280-301) mosm/kg AST (14-36) U/L ALT (4-34) U/L Creatine Kinase (30-135) U/L Troponin I (0.000-0.034) ng/mL Urine Appearance (Clear) Urine Glucose (UA) (Negative) Urine Mucus (None) /hpf U Tricyclic Antidepress (NotDetected) 12/12/20 12/12/20 12/12/20 Range/Units 16:49 16:49 16:49 WBC (3.8-10.6) k/uL Neutrophils # (1.3-7.7) k/uL Monocytes # (0-1.0) k/uL APTT 20.4 L (22.0-30.0) sec Sodium 119 L* (137-145) mmol/L Potassium 7.2 H* (3.5-5.1) mmol/L Chloride 91 L (98-107) mmol/L Carbon Dioxide 21 L (22-30) mmol/L BUN 70 H (7-17) mg/dL Creatinine 1.22 H (0.52-1.04) mg/dL Glucose (74-99) mg/dL POC Glucose (mg/dL) (75-99) mg/dL Osmolality (280-301) mosm/kg AST 38 H (14-36) U/L ALT 76 H (4-34) U/L Creatine Kinase 28 L (30-135) U/L Troponin I (0.000-0.034) ng/mL Urine Appearance Cloudy H (Clear) Urine Glucose (UA) 3+ H (Negative) Urine Mucus Rare H (None) /hpf U Tricyclic Antidepress Detected H (NotDetected) 12/12/20 12/12/20 12/12/20 Range/Units 16:49 16:53 19:54 WBC (3.8-10.6) k/uL Neutrophils # (1.3-7.7) k/uL Monocytes # (0-1.0) k/uL APTT (22.0-30.0) sec Sodium (137-145) mmol/L Potassium (3.5-5.1) mmol/L Chloride (98-107) mmol/L Carbon Dioxide (22-30) mmol/L BUN (7-17) mg/dL Creatinine (0.52-1.04) mg/dL Glucose (74-99) mg/dL POC Glucose (mg/dL) 112 H 121 H (75-99) mg/dL Osmolality (280-301) mosm/kg AST (14-36) U/L ALT (4-34) U/L Creatine Kinase (30-135) U/L Troponin I 0.077 H* (0.000-0.034) ng/mL Urine Appearance (Clear) Urine Glucose (UA) (Negative) Urine Mucus (None) /hpf U Tricyclic Antidepress (NotDetected) 12/12/20 12/12/20 12/12/20 Range/Units 20:30 20:30 22:50 WBC (3.8-10.6) k/uL Neutrophils # (1.3-7.7) k/uL Monocytes # (0-1.0) k/uL APTT (22.0-30.0) sec Sodium 119 L* 120 L (137-145) mmol/L Potassium 6.2 H* (3.5-5.1) mmol/L Chloride 88 L (98-107) mmol/L Carbon Dioxide (22-30) mmol/L BUN 63 H (7-17) mg/dL Creatinine 1.09 H (0.52-1.04) mg/dL Glucose 122 H (74-99) mg/dL POC Glucose (mg/dL) (75-99) mg/dL Osmolality 276 L (280-301) mosm/kg AST (14-36) U/L ALT (4-34) U/L Creatine Kinase (30-135) U/L Troponin I (0.000-0.034) ng/mL Urine Appearance (Clear) Urine Glucose (UA) (Negative) Urine Mucus (None) /hpf U Tricyclic Antidepress (NotDetected) 12/13/20 12/13/20 12/13/20 Range/Units 02:34 04:26 04:26 WBC 26.1 H (3.8-10.6) k/uL Neutrophils # 19.7 H (1.3-7.7) k/uL Monocytes # 1.6 H (0-1.0) k/uL APTT (22.0-30.0) sec Sodium 126 L 125 L (137-145) mmol/L Potassium 6.3 H* (3.5-5.1) mmol/L Chloride 90 L 93 L (98-107) mmol/L Carbon Dioxide 21 L (22-30) mmol/L BUN 61 H 68 H (7-17) mg/dL Creatinine 1.05 H (0.52-1.04) mg/dL Glucose (74-99) mg/dL POC Glucose (mg/dL) (75-99) mg/dL Osmolality (280-301) mosm/kg AST (14-36) U/L ALT (4-34) U/L Creatine Kinase (30-135) U/L Troponin I (0.000-0.034) ng/mL Urine Appearance (Clear) Urine Glucose (UA) (Negative) Urine Mucus (None) /hpf U Tricyclic Antidepress (NotDetected) 12/13/20 12/13/20 Range/Units 05:07 08:51 WBC (3.8-10.6) k/uL Neutrophils # (1.3-7.7) k/uL Monocytes # (0-1.0) k/uL APTT (22.0-30.0) sec Sodium 126 L 128 L (137-145) mmol/L Potassium 5.4 H (3.5-5.1) mmol/L Chloride 91 L 93 L (98-107) mmol/L Carbon Dioxide (22-30) mmol/L BUN 62 H 62 H (7-17) mg/dL Creatinine 1.09 H (0.52-1.04) mg/dL Glucose (74-99) mg/dL POC Glucose (mg/dL) (75-99) mg/dL Osmolality (280-301) mosm/kg AST (14-36) U/L ALT (4-34) U/L Creatine Kinase (30-135) U/L Troponin I (0.000-0.034) ng/mL Urine Appearance (Clear) Urine Glucose (UA) (Negative) Urine Mucus (None) /hpf U Tricyclic Antidepress (NotDetected) Thrombosis Risk Factor Assmnt - Choose All That Apply Each Factor Represents 1 point: Obesity (BMI >25) Thrombosis Risk Factor Assessment Total Risk Factor Score: 1 Thrombosis Risk Factor Assessment Level: Low Risk
[2020-12-13] MEDS: AMITRIPTYLINE HCL 25 MG TAB PO SCH (21:10)
[2020-12-13] MEDS: HALOPERIDOL LACTATE 5 MG/ML 1 ML VIAL IVP PRN (22:26)
[2020-12-14] MEDS ORDERED: FUROSEMIDE 10 MG/ML 4 ML VIAL IV STA (02:11)
[2020-12-14] MEDS: HALOPERIDOL LACTATE 5 MG/ML 1 ML VIAL IVP PRN (03:18)
[2020-12-14 05:37] LABS: Basophils % (A) 0 %; Eosinophils # (A) 0.1 k/uL (0-0.7); Eosinophils % (A) 1 %; HCT 36.4 % (34.0-46.0); HGB 12.8 gm/dL (11.4-16.0); Lymphocytes % (A) 13 %; MCHC 35.3 g/dL (31.0-37.0); MCV 93.5 fL (80.0-100.0); Mean Platelet Volume 7.6; Monocytes # (A) 0.5 k/uL (0-1.0); Monocytes % (A) 4 %; Neutrophils # (A) 12.3 k/uL (1.3-7.7); Neutrophils % (A) 82 %; Platelet Count 196 k/uL (150-450); RBC 3.89 m/uL (3.80-5.40); RDW 14.3 % (11.5-15.5); WBC 15.1 k/uL (3.8-10.6)
[2020-12-14 05:57] LABS: Albumin 2.9 g/dL (3.5-5.0); Calcium 8.2 mg/dL (8.4-10.2); Potassium 4.1 mmol/L (3.5-5.1); Total Bilirubin 0.6 mg/dL (0.2-1.3); Total Protein 5.2 g/dL (6.3-8.2)
[2020-12-14] MEDS ORDERED: SODIUM CHLORIDE 0.9% 2,000 ML IV ONE (08:29)
[2020-12-14] MEDS ORDERED: CEFEPIME 1 GM in SODIUM CHLORIDE 0.9% 50 ML IVPB ONE (09:00)
[2020-12-14] MEDS: HYDROCORTISONE SUCCINATE 100 MG/2 ML VIAL IV SCH ×2 (09:35→17:28)
[2020-12-14] MEDS: SODIUM CHLORIDE 0.9% 1,000 ML IV SCH ×2 (09:41→17:29)
[2020-12-14] MEDS: ENOXAPARIN 40 MG/0.4 ML SYRINGE SQ SCH (09:42)
[2020-12-14] MEDS: VANCOMYCIN 1,500 MG in SODIUM CHLORIDE 0.9% 250 ML IVPB SCH (09:55)
--- NOTE | 2020-12-14 09:56 | P.PN ---
Subjective Patient is seen in follow-up for acute kidney injury and hyponatremia. Sodium level 129 this morning. Creatinine fairly stable at 1.08. Urine output 50-60 mL an hour. She did receive 2 doses of IV Lasix this admission. Blood pressures are lower side. Blood culture positive for staph epi. She will be started on IV fluids today. Not a reliable historian. Vital signs are stable. Blood pressure on the lower side. General: Appears lethargic. HEENT: Head exam is unremarkable. LUNGS: Breath sounds decreased. HEART: Rate and Rhythm are regular. ABDOMEN: Soft, no distention. EXTREMITITES: Trace edema. Objective - Vital Signs Vital signs: Vital Signs Temp 97.5 F L 12/14/20 00:00 Pulse 86 12/14/20 07:00 Resp 17 12/14/20 07:00 BP 89/66 12/14/20 07:00 Pulse Ox 94 L 12/14/20 07:00 Intake & Output 12/13/20 12/14/20 12/14/20 18:59 06:59 18:59 Intake Total 760 36 3 Output Total 635 460 50 Balance 125 -424 -47 Weight 72 kg Intake: IV 760 36 3 0.9 Pressure Bag 30 36 3 Dextrose 5% in Water 1, 700 000 ml @ 75 mls/hr IV . [id number] [facility] Rx#:[id number] Sodium Chloride 0.9% 1, 30 000 ml @ 10 mls/hr IV . Q24H [facility] Rx#:[id number] Output: Urine 635 460 50 Other: Voiding Method Indwelling Catheter Indwelling Catheter - Labs CBC & Chem 7: 12/14/20 05:20 12/14/20 05:20 Labs: Abnormal Lab Results - Last 24 Hours (Table) 12/13/20 12/13/20 12/13/20 Range/Units 08:51 12:50 16:45 WBC (3.8-10.6) k/uL Neutrophils # (1.3-7.7) k/uL Sodium 127 L 126 L (137-145) mmol/L Chloride 93 L 91 L (98-107) mmol/L BUN 61 H 56 H (7-17) mg/dL Creatinine (0.52-1.04) mg/dL Glucose 109 H 113 H (74-99) mg/dL Calcium (8.4-10.2) mg/dL AST (14-36) U/L ALT (4-34) U/L Troponin I 0.877 H* (0.000-0.034) ng/mL Total Protein (6.3-8.2) g/dL Albumin (3.5-5.0) g/dL 12/14/20 12/14/20 Range/Units 05:20 05:20 WBC 15.1 H (3.8-10.6) k/uL Neutrophils # 12.3 H (1.3-7.7) k/uL Sodium 129 L (137-145) mmol/L Chloride 95 L (98-107) mmol/L BUN 60 H (7-17) mg/dL Creatinine 1.08 H (0.52-1.04) mg/dL Glucose 114 H (74-99) mg/dL Calcium 8.2 L (8.4-10.2) mg/dL AST 54 H (14-36) U/L ALT 77 H (4-34) U/L Troponin I (0.000-0.034) ng/mL Total Protein 5.2 L (6.3-8.2) g/dL Albumin 2.9 L (3.5-5.0) g/dL Microbiology - Last 24 Hours (Table) 12/12/20 20:30 Blood Culture Gram Stain - Preliminary Blood Blood Culture - Preliminary Staphylococcus epidermidis 12/12/20 20:30 Blood Culture - Final Blood Assessment and Plan Plan: Assessment: 1. Hypervolemic hyponatremia improved with IV Lasix. Sodium level 119 on admission and is 129 today. Urine osmolality 284. Hypervolemia improved. TSH normal. 2. Hyperkalemia secondary to acute kidney injury, potassium supplementation, nonsteroidals, losartan and spironolactone. Improved. 3. Acute kidney injury mostly prerenal secondary to diuresis and infection. Creatinine 1.0 today. UA benign. 4. Encephalopathy likely related to electrolyte imbalance and infection. Neurology following. 5. History of MS. 6. Hypotension. Rule out sepsis. Cortisol level was normal. She is receiving stress dose Solu-Cortef. Blood culture positive for staph epi. Plan: IV fluids will be started today for sepsis. Follow-up echocardiogram. Continue to monitor renal function and urine output. Follow-up cultures.
[2020-12-14] MEDS: CALCIUM CARBONATE 500 MG CHEWABLE PO SCH (09:58)
[2020-12-14] MEDS: CHOLECALCIFEROL 25 MCG (1000 IU) TABLET PO SCH (09:59)
--- NOTE | 2020-12-14 10:01 | ECHOF ---
Referral Reason:trop leak MEASUREMENTS -------- HEIGHT: 165.1 cm WEIGHT: 71.7 kg BP: 92/62 RVIDd: 1.5 cm (< 3.3) IVSd: 1.0 cm (0.6 - 1.1) LVIDd: 3.8 cm (3.9 - 5.3) LVPWd: 1.0 cm (0.6 - 1.1) IVSs: 1.4 cm LVIDs: 2.5 cm LVPWs: 1.3 cm LA Diam: 2.5 cm (2.7 - 3.8) Ao Diam: 2.9 cm (2.0 - 3.7) AV Cusp: 1.9 cm (1.5 - 2.6) MV EXCURSION: 11.540 mm (> 18.000) MV EF SLOPE: 21 mm/s (70 - 150) EPSS: 0.3 cm MV E Blake: 0.57 m/s MV DecT: 215 ms MV A Blake: 0.57 m/s MV E/A Ratio: 1.00 FINDINGS -------- Sinus rhythm. This was a technically difficult study with suboptimal views. The left ventricular size is normal. Left ventricular wall thickness is normal. Overall left vent ricular systolic function is normal with, an EF between 60 - 65 %. The right ventricle is normal in size. The left atrium is normal in size. The right atrium was not well visualized. The aortic valve is trileaflet, and appears structurally normal. No aortic stenosis or regurgitation. The mitral valve is normal. The tricuspid valve appears structurally normal. The pulmonic valve was not well visualized. The aortic root size is normal. Normal inferior vena cava with normal inspiratory collapse consistent with estimated right atrial pre ssure of 5 mmHg. There is a small pericardial effusion is located near the right ventricle. CONCLUSIONS -------- 1. The left ventricular size is normal. 2. Left ventricular wall thickness is normal. 3. Overall left ventricular systolic function is normal with, an EF between 60 - 65 %. 4. There is a small pericardial effusion is located near the right ventricle. G[employer]BAL PRODUCT MANAGER: Mirella Olivo [facility]
--- NOTE | 2020-12-14 10:41 | P.GSCN ---
History of Present Illness Consult date: 12/14/20 Reason for Consult: Lower extremity ischemic changes Requesting physician: Jonny Lilly History of present illness: This is a stage 5-year-old white female with a history of multiple sclerosis who was admitted to the hospital for altered mental status changes. On admission she was noted to have hyponatremia and hyperkalemia with leukocytosis. She has had multiple admissions for MS exacerbations, her most recent she was discharged on 11/12/2020 after 3 days of high-dose steroids. He has a history of chronic peripheral extremity edema. Vascular surgery was consulted for ischemic vascular changes to the lower extremities. The patient was sleeping, however was easily arousable. When asked if she had any history of peripheral arterial disease, her answers do not make sense. She seemed to answer a couple questions appropriately, however when asked if she could move her lower extremities or wiggle her toes she did not respond yet it is reported that she uses a walker and wheelchair at home. Review of Systems Limited review of systems due to mental status changes ROS unobtainable: due to mental status Past Medical History Past Medical History: Cancer, Hypertension, Musculoskeletal Disorder Additional Past Medical History / Comment(s): hx migraines, MS, edema lower legs and feet, walker- currently using wheelchair, brace on left arm, bladder urgency-wears briefs, hx breast cancer History of Any Multi-Drug Resistant Organisms: None Reported Past Surgical History: Appendectomy, Breast Surgery Additional Past Surgical History / Comment(s): 6 surgeries for breast cancer(rt lumpectomy/mastectomy/reconstructive), shiraz cataracts, Past Anesthesia/Blood Transfusion Reactions: Motion Sickness Smoking Status: Unknown if ever smoked - Past Family History Father Family Medical History: Cancer Sister(s) Family Medical History: Deep Vein Thrombosis (DVT) Medications and Allergies Home Medications Medication Instructions Recorded Confirmed Type Acetaminophen [Tylenol] 650 mg PO Q6H PRN 08/24/15 12/12/20 History Amitriptyline HCl [Elavil] 25 mg PO HS 08/24/15 12/12/20 History Anastrozole [Arimidex] 1 mg PO DAILY 08/24/15 12/12/20 History Baclofen 10 mg PO BID PRN 08/24/15 12/12/20 History Calcium Carbonate [Calcium] 600 mg PO DAILY 08/24/15 12/12/20 History Multivitamins, Thera [Multivitamin 1 tab PO DAILY 08/24/15 12/12/20 History (formulary)] Niacin 500 mg PO HS 08/24/15 12/12/20 History Pregabalin [Lyrica] 50 mg PO BID #60 cap 08/31/15 12/12/20 Rx Atenolol [Tenormin] 100 mg PO BID 10/18/20 12/12/20 History Docusate [Colace] 100 mg PO DAILY PRN 10/18/20 12/12/20 History Fesoterodine Fumarate [Toviaz] 8 mg PO DAILY 10/18/20 12/12/20 History HYDROcodone/APAP 5-325MG [[place] 1 tab PO BID PRN 10/18/20 12/12/20 History 5-325] Meloxicam [Mobic] 7.5 mg PO DAILY 10/18/20 12/12/20 History Rebif 44 Mcg/0.5 Ml 44 mcg SQ MOWEFR 10/18/20 12/12/20 History Spironolactone [Aldactone] 50 mg PO DAILY 10/18/20 12/12/20 History Alendronate Sodium [Fosamax] 70 mg PO MO 10/20/20 12/12/20 History Losartan Potassium [Cozaar] 100 mg PO DAILY 10/20/20 12/12/20 History Cholecalciferol (Vitamin D3) 75 mcg PO DAILY 11/06/20 12/12/20 History [Vitamin D3 (3000 Iu)] Potassium Gluconate 99 mg PO DAILY 12/12/20 12/12/20 History predniSONE See Taper PO DIRECTED 12/12/20 12/12/20 History Allergies Allergy/AdvReac Type Severity Reaction Status Date / Time No Known Allergies Allergy Verified 12/12/20 18:05 Surgical - Exam Vital Signs Temp Pulse Resp BP Pulse Ox 98.6 F 72 18 179/106 96 12/12/20 15:48 12/12/20 15:48 12/12/20 15:48 12/12/20 15:48 12/12/20 15:48 General appearance: The patient is alert, oriented, upper answering questions inappropriately and not following all commands. HET: Head is normocephalic and atraumatic. Pupils are equal and reactive. Neck: Supple without lymphadenopathy. Trachea midline. Heart: S1 S2. Regular rate and rhythm. Lungs: Clear to auscultation. Abdomen: Soft, nontender, nondistended. Skin: Small ulcer noted in the left groin. Extremities: Bilateral +2 lower extremity edema. Bilateral midfoot down to toes with purple discoloration, appears microvascular. Good capillary refill 3-5 seconds, bilateral lower extremities cool to the touch. Nonpalpable pulses, multiphasic femoral, popliteal, posterior tibialis and dorsalis pedis pulses. Neurological: Following simple commands, was able to wiggle toes. Results - Labs 12/14/20 05:20 12/14/20 05:20 Abnormal Lab Results - Last 24 Hours (Table) 12/13/20 12/13/20 12/13/20 Range/Units 08:51 08:51 12:50 WBC (3.8-10.6) k/uL Neutrophils # (1.3-7.7) k/uL Sodium 128 L 127 L (137-145) mmol/L Potassium 5.4 H (3.5-5.1) mmol/L Chloride 93 L 93 L (98-107) mmol/L BUN 62 H 61 H (7-17) mg/dL Creatinine 1.09 H (0.52-1.04) mg/dL Glucose 109 H (74-99) mg/dL Calcium (8.4-10.2) mg/dL AST (14-36) U/L ALT (4-34) U/L Troponin I 0.877 H* (0.000-0.034) ng/mL Total Protein (6.3-8.2) g/dL Albumin (3.5-5.0) g/dL 12/13/20 12/14/20 12/14/20 Range/Units 16:45 05:20 05:20 WBC 15.1 H (3.8-10.6) k/uL Neutrophils # 12.3 H (1.3-7.7) k/uL Sodium 126 L 129 L (137-145) mmol/L Potassium (3.5-5.1) mmol/L Chloride 91 L 95 L (98-107) mmol/L BUN 56 H 60 H (7-17) mg/dL Creatinine 1.08 H (0.52-1.04) mg/dL Glucose 113 H 114 H (74-99) mg/dL Calcium 8.2 L (8.4-10.2) mg/dL AST 54 H (14-36) U/L ALT 77 H (4-34) U/L Troponin I (0.000-0.034) ng/mL Total Protein 5.2 L (6.3-8.2) g/dL Albumin 2.9 L (3.5-5.0) g/dL Microbiology - Last 24 Hours (Table) 12/12/20 20:30 Blood Culture Gram Stain - Preliminary Blood Blood Culture - Preliminary Staphylococcus epidermidis 12/12/20 20:30 Blood Culture - Final Blood Diabetes panel 12/13/20 12/13/20 12/13/20 Range/Units 08:51 12:50 16:45 Sodium 128 L 127 L 126 L (137-145) mmol/L Potassium 5.4 H 4.8 4.8 (3.5-5.1) mmol/L Chloride 93 L 93 L 91 L (98-107) mmol/L Carbon Dioxide 30 28 29 (22-30) mmol/L BUN 62 H 61 H 56 H (7-17) mg/dL Creatinine 1.09 H 1.02 0.99 (0.52-1.04) mg/dL Glucose 82 109 H 113 H (74-99) mg/dL Calcium 9.1 8.6 8.7 (8.4-10.2) mg/dL AST (14-36) U/L ALT (4-34) U/L Alkaline Phosphatase (38-126) U/L Total Protein (6.3-8.2) g/dL Albumin (3.5-5.0) g/dL 12/14/20 Range/Units 05:20 Sodium 129 L (137-145) mmol/L Potassium 4.1 (3.5-5.1) mmol/L Chloride 95 L (98-107) mmol/L Carbon Dioxide 27 (22-30) mmol/L BUN 60 H (7-17) mg/dL Creatinine 1.08 H (0.52-1.04) mg/dL Glucose 114 H (74-99) mg/dL Calcium 8.2 L (8.4-10.2) mg/dL AST 54 H (14-36) U/L ALT 77 H (4-34) U/L Alkaline Phosphatase 59 (38-126) U/L Total Protein 5.2 L (6.3-8.2) g/dL Albumin 2.9 L (3.5-5.0) g/dL Thyroid panel 12/13/20 Range/Units 08:51 TSH 3.040 (0.465-4.680) mIU/L Calcium panel 12/13/20 12/13/20 12/13/20 Range/Units 08:51 12:50 16:45 Calcium 9.1 8.6 8.7 (8.4-10.2) mg/dL Albumin (3.5-5.0) g/dL 12/14/20 Range/Units 05:20 Calcium 8.2 L (8.4-10.2) mg/dL Albumin 2.9 L (3.5-5.0) g/dL Pituitary panel 12/13/20 12/13/20 12/13/20 Range/Units 08:51 12:50 16:45 Sodium 128 L 127 L 126 L (137-145) mmol/L Potassium 5.4 H 4.8 4.8 (3.5-5.1) mmol/L Chloride 93 L 93 L 91 L (98-107) mmol/L Carbon Dioxide 30 28 29 (22-30) mmol/L BUN 62 H 61 H 56 H (7-17) mg/dL Creatinine 1.09 H 1.02 0.99 (0.52-1.04) mg/dL Glucose 82 109 H 113 H (74-99) mg/dL Calcium 9.1 8.6 8.7 (8.4-10.2) mg/dL TSH 3.040 (0.465-4.680) mIU/L 12/14/20 Range/Units 05:20 Sodium 129 L (137-145) mmol/L Potassium 4.1 (3.5-5.1) mmol/L Chloride 95 L (98-107) mmol/L Carbon Dioxide 27 (22-30) mmol/L BUN 60 H (7-17) mg/dL Creatinine 1.08 H (0.52-1.04) mg/dL Glucose 114 H (74-99) mg/dL Calcium 8.2 L (8.4-10.2) mg/dL TSH (0.465-4.680) mIU/L Adrenal panel 12/13/20 12/13/20 12/13/20 Range/Units 08:51 12:50 16:45 Sodium 128 L 127 L 126 L (137-145) mmol/L Potassium 5.4 H 4.8 4.8 (3.5-5.1) mmol/L Chloride 93 L 93 L 91 L (98-107) mmol/L Carbon Dioxide 30 28 29 (22-30) mmol/L BUN 62 H 61 H 56 H (7-17) mg/dL Creatinine 1.09 H 1.02 0.99 (0.52-1.04) mg/dL Glucose 82 109 H 113 H (74-99) mg/dL Calcium 9.1 8.6 8.7 (8.4-10.2) mg/dL Total Bilirubin (0.2-1.3) mg/dL AST (14-36) U/L ALT (4-34) U/L Alkaline Phosphatase (38-126) U/L Total Protein (6.3-8.2) g/dL Albumin (3.5-5.0) g/dL 12/14/20 Range/Units 05:20 Sodium 129 L (137-145) mmol/L Potassium 4.1 (3.5-5.1) mmol/L Chloride 95 L (98-107) mmol/L Carbon Dioxide 27 (22-30) mmol/L BUN 60 H (7-17) mg/dL Creatinine 1.08 H (0.52-1.04) mg/dL Glucose 114 H (74-99) mg/dL Calcium 8.2 L (8.4-10.2) mg/dL Total Bilirubin 0.6 (0.2-1.3) mg/dL AST 54 H (14-36) U/L ALT 77 H (4-34) U/L Alkaline Phosphatase 59 (38-126) U/L Total Protein 5.2 L (6.3-8.2) g/dL Albumin 2.9 L (3.5-5.0) g/dL - Imaging Additional studies: CT brain: Impression states no acute bleed or mass effect. Remote lacunar infarct in the left caudate nucleus. Echocardiogram: EF between 60-65%, small pericardial effusion located near the right ventricle Assessment and Plan Assessment: 1. Bilateral lower extremity vascular changes, likely microvascular. Arterial study MADDIE right 0.95, left 1.07 2. Bilateral lower extremity edema 3. Altered mental status 4. Hyponatremia 5. Hyperkalemia 6. Multiple sclerosis 7. History of hypertension Plan: 1. Lower extremity Arterial study ordered and reviewed 2. Keep feet warm with blankets 3. Continue ICU medical management 4. No indications for any vascular surgical intervention Thank you for this consultation we will continue to follow The impression and plan of care has been dictated as directed. I performed a history and examination of this patient, discussed the same with the dictator. I agree with the dictator's note ,documented as a scribe. Any additional findings or plans will be noted.
[2020-12-14] MEDS: PREGABALIN 50 MG CAP PO SCH ×2 (11:14→20:24)
[2020-12-14] MEDS: ANASTROZOLE 1 MG TAB PO SCH (11:14)
[2020-12-14] MEDS ORDERED: DEXTROSE 5% IN WATER 250 ML with AMIODARONE 300 MG IV ONE (11:30)
--- NOTE | 2020-12-14 11:48 | P.PN ---
Subjective Progress Note Date: 12/14/20 Principal diagnosis: Altered mental status, hyponatremia This is a pleasant 65-year-old female patient who has a history of multiple sclerosis diagnosed in 1997 and has been on Rebif for many years. She also has a history of hypertension, right breast cancer status post mastectomy followed by chemotherapy in 2011. She was recently here in the hospital for bilateral lower extremity weakness and edema. She was treated for an exacerbation of her multiple sclerosis high-dose steroids for 3 days and subsequently discharged on 11/12/2020. She presented here to the emergency room yesterday after a visiting nurse found her to have altered mental status. She had been actively hallucinating. She was found not to have any new weaknesses or sensory deficits. She was still on prednisone taper from her previous admission. He was found to be hypoglycemic with a glucose of 54 and given an amp of dextrose. White count of 24.2. Sodium of 119. Potassium 7.2. Chloride 88. Creatinine 1.22. Troponin 0.077. Urinalysis without evidence of infection. Urine drug screen positive for tricyclic antidepressants. Christianson virus not detected. She was initiated on 3% normal saline at 30 MLS per hour and admitted to the intensive care unit. Seen today in consultation in the ICU. She is currently awake and alert. She is continuously repeating "do not shoot me" though is able to state that she is in the hospital. She follows simple commands. She is moving her upper extremities. Some weakness on the left side which she usually wears a brace on. Lower extremities with no significant mobility and movement of the lower extremities due to her MS. Computed tomography scan of the brain revealed no acute bleed or mass effect. 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 His x-ray reveals no active cardiopulmonary disease. Today's labs reveal a white count 26.1. Hemoglobin 15.2. Neutrophils 19.7. Sodium 126. Potassium 5.0. Creatinine 1.04. He remains on Solu-Cortef 100 mg IV every 8 hours, 3% normal saline at 30 MLS per hour, Lovenox for DVT prophylaxis. On 12/14/2020 patient seen in follow-up in the intensive care unit. She is currently lethargic, but is responsive to verbal stimulation, she is oriented to self, but when asked if she knows where she is at she states "No", when asked if she knows what date it is she states "No". Appears to be in no acute distress, room air pulse ox is 95%, she has no running IVs, apparently she pulled out her triple-lumen central line catheter early this morning and currently she has no IV access. Currently blood pressure is 84/64, she is in sinus mechanism, clinically she appears to be dry, patient has not been eating or drinking very much by mouth. She did have a temperature elevation yesterday in the evening with a temp of 100F. He has not required vasopressor support. Her blood cultures were positive for staph epidermidis that her likely related to contamination, and the patient is currently on vancomycin. Patient also went into A. fib with RVR this morning and was started on amiodarone infusion. Today's labs have been reviewed, white blood cell count is 15.1, hemoglobin is 12.8, serum sodium is 129, improving, potassium is 4.1, chloride is 95, BUN is 60 creatinine 1.08, AST is 54, ALT is 77, alk phos is 59, TSH was within normal limits at 3.040, pro calcitonin level was negative at 6.4, patient had a troponin elevation at 0.077, and subsequent 1 increased to 0.877. Cardiology service is following. Her echocardiogram showed preserved LV function with an EF of 60-65%, no significant valvular disease, and small pericardial effusion. Patient's oral membranes are dry, and her pulses are poorly palpable, and vascular surgery evaluation will be obtained Objective - Vital Signs Vital signs: Vital Signs Temp 98.6 F 12/14/20 08:30 Pulse 133 H 12/14/20 11:00 Resp 18 12/14/20 11:00 BP 98/42 12/14/20 11:00 Pulse Ox 95 12/14/20 11:00 Intake & Output 12/13/20 12/14/20 12/14/20 18:59 06:59 18:59 Intake Total 472 64 2475 Output Total 635 460 255 Balance 125 -424 2098 Weight 72 kg Intake: IV 376 87 4872 0.9 Pressure Bag 30 36 3 Cefepime 1 gm In Sodium 100 Chloride 0.9% 50 ml @ 100 mls/hr IVPB ONCE ONE Rx# :[id number] Dextrose 5% in Water 1, 700 000 ml @ 75 mls/hr IV . [id number] ONE Rx#:[id number] Sodium Chloride 0.9% 1, 30 000 ml @ 10 mls/hr IV . Q24H [facility] Rx#:[id number] Sodium Chloride 0.9% 2, 2000 000 ml @ 999 mls/hr IV . Q2H1M ONE Rx#:[id number] Vancomycin 1,500 mg In 250 Sodium Chloride 0.9% 250 ml @ 125 mls/hr IVPB Q16H [facility] Rx#:[id number] Output: Urine 635 460 255 Other: Voiding Method Indwelling Catheter Indwelling Catheter - Exam GENERAL EXAM: Lethargic, 65-year-old white female, on room air, with pulse ox of 95%, confused, comfortable in no apparent distress. HEAD: Normocephalic/atraumatic. EYES: Normal reaction of pupils, equal size. Conjunctiva pink, sclera white. NOSE: Clear with pink turbinates. THROAT: No erythema or exudates. NECK: No masses, no JVD, no thyroid enlargement, no adenopathy. CHEST: No chest wall deformity. Symmetrical expansion. LUNGS: Equal air entry with no crackles, wheeze, rhonchi or dullness. CVS: Irregular rate and rhythm, normal S1 and S2, no gallops, no murmurs, no rubs ABDOMEN: Soft, nontender. No hepatosplenomegaly, normal bowel sounds, no guarding or rigidity. EXTREMITIES: No clubbing, no edema, no cyanosis, 2+ pulses and upper and lower extremities. MUSCULOSKELETAL: Muscle strength and tone normal. SPINE: No scoliosis or deformity SKIN: No rashes CENTRAL NERVOUS SYSTEM: Lethargic, but arousable, answers to verbal stimuli, No focal deficits, tone is normal in all 4 extremities. - Labs CBC & Chem 7: 12/14/20 05:20 12/14/20 05:20 Labs: Abnormal Lab Results - Last 24 Hours (Table) 12/13/20 12/13/20 12/14/20 Range/Units 12:50 16:45 05:20 WBC 15.1 H (3.8-10.6) k/uL Neutrophils # 12.3 H (1.3-7.7) k/uL Sodium 127 L 126 L (137-145) mmol/L Chloride 93 L 91 L (98-107) mmol/L BUN 61 H 56 H (7-17) mg/dL Creatinine (0.52-1.04) mg/dL Glucose 109 H 113 H (74-99) mg/dL Calcium (8.4-10.2) mg/dL AST (14-36) U/L ALT (4-34) U/L Total Protein (6.3-8.2) g/dL Albumin (3.5-5.0) g/dL 12/14/20 Range/Units 05:20 WBC (3.8-10.6) k/uL Neutrophils # (1.3-7.7) k/uL Sodium 129 L (137-145) mmol/L Chloride 95 L (98-107) mmol/L BUN 60 H (7-17) mg/dL Creatinine 1.08 H (0.52-1.04) mg/dL Glucose 114 H (74-99) mg/dL Calcium 8.2 L (8.4-10.2) mg/dL AST 54 H (14-36) U/L ALT 77 H (4-34) U/L Total Protein 5.2 L (6.3-8.2) g/dL Albumin 2.9 L (3.5-5.0) g/dL Microbiology - Last 24 Hours (Table) 12/12/20 20:30 Blood Culture Gram Stain - Preliminary Blood Blood Culture - Preliminary Staphylococcus epidermidis 12/12/20 20:30 Blood Culture - Final Blood Assessment and Plan Plan: Assessment: #1. Altered mental status, likely related to metabolic encephalopathy #2. Hyponatremia, likely hypovolemic, patient has had a poor oral intake and was suspected to be dehydrated patient was admitted with a serum sodium of 119, currently her serum sodium is up to 129. Patient did require infusion of hypertonic saline which is currently off #3. Rule out possibility of sepsis, and patient is currently covered with vancomycin, we will add cefepime #4. Leukocytosis possibility of sepsis is being considered #5. A. fib with RVR #6. Elevated troponin, rule out possibility of non-ST elevated myocardial infarction #7. History of hypertension #8. History of breast cancer with previous mastectomy status post chemotherapy #9. Hyperkalemia related to acute kidney injury, nonsteroid all agents, losartan, spironolactone, improved, nephrology service is following #10. History of MS Plan: We'll give the patient 2 L IV fluid boluses Increase maintenance IV fluids 2.0, sitting at a rate of 100 ML per hour send blood cultures, Cardiology consultation for A. fib RVR Add cefepime to antibiotic coverage Continue close hemodynamic monitoring Obtain midline We'll continue to closely follow I performed a history & physical examination of the patient and discussed their management with my nurse practitioner, Julienne Rodriguez. I reviewed the nurse practitioner's note and agree with the documented findings and plan of care. Lung sounds are positive for diminished breath sounds. The findings and the impression was discussed with the patient. I attest to the documentation by the nurse practitioner. Time with Patient: Greater than 30
[2020-12-14] MEDS ORDERED: HEPARIN SODIUM 1,000 UN/ML (10ML VL) IV ONE (12:54)
[2020-12-14] MEDS ORDERED: HEPARIN SODIUM 1,000 UN/ML (10ML VL) IV PRN (12:54)
--- NOTE | 2020-12-14 12:57 | P.PN ---
Subjective This is a pleasant 65-year-old female past medical history significant for multiple sclerosis who came to the emergency department secondary to altered mental status. She was seen in evaluation by Dr. Chinchilla yesterday secondary to abnormal troponins. Echocardiogram was obtained revealing preserved LV systolic function with ejection fraction of 60-65% with a small pericardial effusion noted at the right ventricle. Today she went into atrial fibrillation with rapid ventricular rate. According to the nurse she was quite confused this morning and was pulling at her IV lines. She is currently restrained. She is not responding verbally however her eyes are open. Blood pressure 98/42 heart rate currently 133 at its peak was 163. She has no documented prior history of atrial fibrillation. Laboratory data reviewed, WBC 15.1, hemoglobin 12.8, platelets 196, sodium 129, potassium 4.1, creatinine 1.08, TSH 3.04. GENERAL: Well-appearing, well-nourished and in no acute distress. NECK: Supple without JVD or thyromegaly. LUNGS: Breath sounds clear to auscultation bilaterally. Respiration equal and unlabored. No wheezes, rales or rhonchi. HEART: Irregular rate and rhythm without murmurs, rubs or gallops. S1 and S2 heard. EXTREMITIES: Normal range of motion, 2+ bilateral lower extremity non-pitting edema. No clubbing or cyanosis. Peripheral pulses intact. ASSESSMENT New onset paroxysmal atrial fibrillation with rapid ventricular rate Altered mental status Hyponatremia Acute kidney injury Hyperkalemia History of MS PLAN Initiate amiodarone bolus over 2 hours and then infusion per protocol. If her blood pressure can tolerate we will use lopressor 25 mg BID. Initiate heparin infusion for thromboembolic protection. Further recommendations to follow based on clinical course. Nurse Practitioner note has been reviewed, I agree with a documented findings and plan of care. Patient was seen and examined. Objective - Vital Signs Vital signs: Vital Signs Temp 98.6 F 12/14/20 08:30 Pulse 133 H 12/14/20 11:00 Resp 18 12/14/20 11:00 BP 98/42 12/14/20 11:00 Pulse Ox 95 12/14/20 11:00 Intake & Output 12/13/20 12/14/20 12/14/20 18:59 06:59 18:59 Intake Total 413 34 9660 Output Total 635 460 255 Balance 125 -424 2098 Weight 72 kg Intake: IV 296 06 9382 0.9 Pressure Bag 30 36 3 Cefepime 1 gm In Sodium 100 Chloride 0.9% 50 ml @ 100 mls/hr IVPB ONCE ONE Rx# :[id number] Dextrose 5% in Water 1, 700 000 ml @ 75 mls/hr IV . [id number] ONE Rx#:[id number] Sodium Chloride 0.9% 1, 30 000 ml @ 10 mls/hr IV . Q24H [facility] Rx#:[id number] Sodium Chloride 0.9% 2, 2000 000 ml @ 999 mls/hr IV . Q2H1M ONE Rx#:[id number] Vancomycin 1,500 mg In 250 Sodium Chloride 0.9% 250 ml @ 125 mls/hr IVPB Q16H [facility] Rx#:[id number] Output: Urine 635 460 255 Other: Voiding Method Indwelling Catheter Indwelling Catheter - Labs CBC & Chem 7: 12/14/20 05:20 12/14/20 05:20 Labs: Abnormal Lab Results - Last 24 Hours (Table) 12/13/20 12/13/20 12/14/20 Range/Units 12:50 16:45 05:20 WBC 15.1 H (3.8-10.6) k/uL Neutrophils # 12.3 H (1.3-7.7) k/uL Sodium 127 L 126 L (137-145) mmol/L Chloride 93 L 91 L (98-107) mmol/L BUN 61 H 56 H (7-17) mg/dL Creatinine (0.52-1.04) mg/dL Glucose 109 H 113 H (74-99) mg/dL Calcium (8.4-10.2) mg/dL AST (14-36) U/L ALT (4-34) U/L Total Protein (6.3-8.2) g/dL Albumin (3.5-5.0) g/dL 12/14/20 Range/Units 05:20 WBC (3.8-10.6) k/uL Neutrophils # (1.3-7.7) k/uL Sodium 129 L (137-145) mmol/L Chloride 95 L (98-107) mmol/L BUN 60 H (7-17) mg/dL Creatinine 1.08 H (0.52-1.04) mg/dL Glucose 114 H (74-99) mg/dL Calcium 8.2 L (8.4-10.2) mg/dL AST 54 H (14-36) U/L ALT 77 H (4-34) U/L Total Protein 5.2 L (6.3-8.2) g/dL Albumin 2.9 L (3.5-5.0) g/dL Microbiology - Last 24 Hours (Table) 12/12/20 20:30 Blood Culture Gram Stain - Preliminary Blood Blood Culture - Preliminary Staphylococcus epidermidis 12/12/20 20:30 Blood Culture - Final Blood
[2020-12-14] MEDS ORDERED: HEPARIN SOD,PORK IN 0.45% NACL 25,000 UNIT in 0.45% NACL 1 250ML.BAG IV SCH (13:00)
[2020-12-14] MEDS ORDERED: AMIODARONE 360 MG in DEXTROSE 5% IN WATER 200 ML IV ONE ×2 (13:30)
[2020-12-14] MEDS: AMIODARONE 450 MG in DEXTROSE 5% IN WATER 250 ML IV SCH ×2 (19:16)
[2020-12-14] MEDS: METOPROLOL TARTRATE 25 MG TAB PO SCH (20:24)
[2020-12-14] MEDS: AMITRIPTYLINE HCL 25 MG TAB PO SCH (20:24)
[2020-12-14] MEDS: CEFEPIME 1 GM in SODIUM CHLORIDE 0.9% 50 ML IVPB SCH (20:27)
--- NOTE | 2020-12-14 20:50 | PN ---
PROGRESS NOTE This is a 65-year-old white female who came in with encephalopathy, unclear etiology; possible sepsis. She is in ICU at this time. She was seen by Neurology, who diagnosed delirium, toxic metabolic encephalopathy, multifactorial due to hyponatremia, hyperkalemia and acute kidney injury. Positive blood culture, leukocytosis, history of MS. Slow correction of hyponatremia has been done. She is at 128. Check cortisol level. Possible steroids. She was also seen by Cardiology, who gave her an amiodarone infusion for atrial fibrillation, rapid ventricular response, altered mental status, hyponatremia, acute kidney injury, hyperkalemia, history of MS. They gave her heparin, amiodarone. She was seen by Pulmonary, who said she was lethargic, responsive to verbal stimuli, oriented to self. Saturating 95%. She is in sinus rhythm. Cardiology saw her, as mentioned. Hemoglobin is 12.8, white count 15.1. TSH is normal. Procalcitonin negative. Echo showed normal ejection fraction. Cardiovascular: S1-S2. Lungs clear. GI soft. ASSESSMENT: 1. Altered mental status secondary to metabolic encephalopathy. 2. Severe hyponatremia secondary to hypovolemia. 3. Poor oral intake. 4. sepsis, on vancomycin, cefepime. 5. Leukocytosis secondary to sepsis. 6. Atrial fibrillation with rapid ventricular response. 7. Elevated troponin. Rule out non-STEMI. 8. Hypertension. 9. History of breast cancer, status post mastectomy. 10.Hyperkalemia. Medications have been adjusted. Fluid bolus has have been given. She is on two antibiotics. Wait for Infectious Disease to see her. Prognosis is guarded. She has Staph epidermidis, possible contamination, coagulase-negative. Wait for further recommendations from Dr. Whitney. MMODL / IJN: [id number] /
--- NOTE | 2020-12-14 22:04 | OP ---
OPERATIVE REPORT OPERATIVE REPORT: Placement of right femoral triple-lumen catheter. PREOPERATIVE DIAGNOSIS: Acute hyponatremia and altered mental status. POSTOPERATIVE DIAGNOSIS: Acute hyponatremia and altered mental status. ANESTHESIA USED: 2 mL of 1% lidocaine. PROCEDURE DESCRIPTION: The patient was placed in supine position. The right groin was prepared in a sterile fashion and drapes were applied. The area was locally anesthetized with lidocaine. Then the right femoral vein was easily cannulated and a guidewire was placed. The area around the guidewire was dilated with a dilator. Then a small tiny incision was made and a triple-lumen catheter was inserted over the guidewire, and the guidewire was removed. Good blood flow was noted in the 3 different ports. Line was secured using 3.0 silk sutures. Again, no evidence of any immediate complications. Procedure was well tolerated. MMODL / IJN: [id number] /
[2020-12-15] MEDS: HYDROCORTISONE SUCCINATE 100 MG/2 ML VIAL IV SCH ×4 (00:18→23:20)
[2020-12-15] MEDS: VANCOMYCIN 1,500 MG in SODIUM CHLORIDE 0.9% 250 ML IVPB SCH (01:38)
[2020-12-15] MEDS: SODIUM CHLORIDE 0.9% 1,000 ML IV SCH ×3 (04:04→11:23)
[2020-12-15 04:40] LABS: Basophils % (A) 0 %; Eosinophils # (A) 0.1 k/uL (0-0.7); Eosinophils % (A) 0 %; HCT 31.4 % (34.0-46.0); Lymphocytes # (A) 1.2 k/uL (1.0-4.8); Lymphocytes % (A) 9 %; MCHC 35.1 g/dL (31.0-37.0); MCV 94.1 fL (80.0-100.0); Mean Platelet Volume 7.4; Monocytes # (A) 0.4 k/uL (0-1.0); Monocytes % (A) 3 %; Neutrophils # (A) 11.6 k/uL (1.3-7.7); Neutrophils % (A) 87 %; Platelet Count 171 k/uL (150-450); RBC 3.33 m/uL (3.80-5.40); RDW 14.4 % (11.5-15.5); WBC 13.4 k/uL (3.8-10.6)
[2020-12-15 05:07] LABS: ALT 78 U/L (4-34); AST 85 U/L (14-36); African American GFR (CKD) >90 (>60 ml/min/1.73 sqM); Albumin 2.7 g/dL (3.5-5.0); Alkaline Phosphatase 56 U/L (38-126); Anion Gap 7 mmol/L; Blood Urea Nitrogen 32 mg/dL (7-17); Calcium 7.3 mg/dL (8.4-10.2); Carbon Dioxide 22 mmol/L (22-30); Chloride 104 mmol/L (98-107); Glucose 130 mg/dL (74-99); Non-African American GFR(CKD) >90 (>60 ml/min/1.73 sqM); Sodium 133 mmol/L (137-145); Total Bilirubin 0.5 mg/dL (0.2-1.3); Total Protein 4.9 g/dL (6.3-8.2)
[2020-12-15] MEDS ORDERED: Potassium Replacement Protocol 1 EACH MISC MISCELLANE PRN (05:26)
[2020-12-15] MEDS: POTASSIUM BICARBONATE/CIT AC 20 MEQ TABLET.EFF NG-TUBE SCH ×2 (05:49→06:13)
[2020-12-15 06:20] LABS: Partial Thromboplastin Time >200.0 sec (22.0-30.0)
[2020-12-15] MEDS: CEFEPIME 1 GM in SODIUM CHLORIDE 0.9% 50 ML IVPB SCH ×2 (08:13→21:58)
[2020-12-15] MEDS: CALCIUM CARBONATE 500 MG CHEWABLE PO SCH (08:17)
[2020-12-15] MEDS: ANASTROZOLE 1 MG TAB PO SCH (08:17)
[2020-12-15] MEDS: CHOLECALCIFEROL 25 MCG (1000 IU) TABLET PO SCH (08:17)
[2020-12-15] MEDS: METOPROLOL TARTRATE 25 MG TAB PO SCH ×2 (08:17→21:58)
[2020-12-15] MEDS: PREGABALIN 50 MG CAP PO SCH ×2 (08:17→21:58)
[2020-12-15] MEDS: AMIODARONE 450 MG in DEXTROSE 5% IN WATER 250 ML IV SCH ×2 (08:27)
--- NOTE | 2020-12-15 10:33 | P.PN ---
Subjective Patient is seen in follow-up for acute kidney injury and hyponatremia. Sodium level 133 this morning. Creatinine 0.71. Nonoliguric. Now on oral amiodarone. Maintained on normal saline. Vital signs are stable. General: Appears lethargic. HEENT: Head exam is unremarkable. LUNGS: Breath sounds decreased. HEART: Rate and Rhythm are regular. ABDOMEN: Soft, no distention. EXTREMITITES: Trace edema. Objective - Vital Signs Vital signs: Vital Signs Temp 97.9 F 12/15/20 08:00 Pulse 86 12/15/20 08:00 Resp 22 12/15/20 08:00 BP 122/77 12/15/20 08:00 Pulse Ox 96 12/15/20 08:00 Intake & Output 12/14/20 12/15/20 12/15/20 18:59 06:59 18:59 Intake Total 3053 1944.496 869.727 Output Total 1160 600 150 Balance 1893 1344.496 719.727 Weight 72 kg 73 kg Intake: IV 3053 1487.5 300 0.9 Pressure Bag 3 Cefepime 1 gm In Sodium 100 37.5 100 Chloride 0.9% 50 ml @ 100 mls/hr IVPB ONCE ONE Rx# :[id number] Sodium Chloride 0.9% 1, 700 1200 200 000 ml @ 50 mls/hr IV . Q20H [facility] Rx#:[id number] Sodium Chloride 0.9% 2, 2000 000 ml @ 999 mls/hr IV . Q2H1M ONE Rx#:[id number] Vancomycin 1,500 mg In 250 250 Sodium Chloride 0.9% 250 ml @ 125 mls/hr IVPB Q16H [facility] Rx#:[id number] Intake, IV Titration 156.996 219.727 Amount Amiodarone 450 mg In 219.727 Dextrose 5% in Water 250 ml @ 0.5 MG/MIN 16.667 mls/hr IV .Q15H [facility] Rx#: [id number] Heparin Sod,Pork in 0.45% 156.996 0 NaCl 25,000 unit In 0.45 % NaCl 1 250ml.bag @ 12 UNITS/KG/HR 8.64 mls/hr IV .Q24H [facility] Rx#: [id number] Oral 300 350 Output: Urine 1160 600 150 Other: Voiding Method Indwelling Catheter Indwelling Catheter Indwelling Catheter - Labs CBC & Chem 7: 12/15/20 04:20 12/15/20 04:20 Labs: Abnormal Lab Results - Last 24 Hours (Table) 12/14/20 12/15/20 12/15/20 Range/Units 21:40 04:20 04:20 WBC 13.4 H (3.8-10.6) k/uL RBC 3.33 L (3.80-5.40) m/uL Hgb 11.0 L (11.4-16.0) gm/dL Hct 31.4 L (34.0-46.0) % Neutrophils # 11.6 H (1.3-7.7) k/uL APTT 31.0 H >200.0 H* (22.0-30.0) sec Sodium (137-145) mmol/L Potassium (3.5-5.1) mmol/L BUN (7-17) mg/dL Glucose (74-99) mg/dL Calcium (8.4-10.2) mg/dL AST (14-36) U/L ALT (4-34) U/L Total Protein (6.3-8.2) g/dL Albumin (3.5-5.0) g/dL 12/15/20 Range/Units 04:20 WBC (3.8-10.6) k/uL RBC (3.80-5.40) m/uL Hgb (11.4-16.0) gm/dL Hct (34.0-46.0) % Neutrophils # (1.3-7.7) k/uL APTT (22.0-30.0) sec Sodium 133 L (137-145) mmol/L Potassium 3.0 L (3.5-5.1) mmol/L BUN 32 H (7-17) mg/dL Glucose 130 H (74-99) mg/dL Calcium 7.3 L (8.4-10.2) mg/dL AST 85 H (14-36) U/L ALT 78 H (4-34) U/L Total Protein 4.9 L (6.3-8.2) g/dL Albumin 2.7 L (3.5-5.0) g/dL Microbiology - Last 24 Hours (Table) 12/12/20 20:30 Blood Culture Gram Stain - Final Blood Blood Culture - Final Staphylococcus epidermidis Coagulase Negative Staph Assessment and Plan Plan: Assessment: 1. Hypervolemic hyponatremia initially improved with IV Lasix. Sodium level 119 on admission and is 133 today. Now on normal saline. Urine osmolality 284. TSH normal. 2. Hyperkalemia secondary to acute kidney injury, potassium supplementation, nonsteroidals, losartan and spironolactone. Improved. Now hypokalemic, being replaced. 3. Acute kidney injury mostly prerenal secondary to diuresis and infection. Resolved. UA benign. 4. Encephalopathy likely related to electrolyte imbalance and infection. Neurology following. 5. History of MS. 6. Hypotension. Rule out sepsis. Cortisol level was normal. She is receiving stress dose Solu-Cortef. Blood culture positive for staph epi - likely contamination. 7. A. fib. Cardiology following. On oral amiodarone, Lopressor and anticoagulation. Plan: Maintain normal saline. Encourage oral intake. Avoid nephrotoxins. Continue to monitor renal function and urine output.
--- NOTE | 2020-12-15 11:20 | P.PN ---
Subjective Progress Note Date: 12/15/20 Principal diagnosis: Vascular changes to bilateral feet She was seen and examined in the ICU. She has been downgraded to a selective care awaiting a bed. Nursing is reporting that she has increased warmth to her lower extremities. Color has improved. Patient is able to wiggle her bilateral toes. She denies any pain to her lower extremities. Objective - Vital Signs Vital signs: Vital Signs Temp 97.9 F 12/15/20 08:00 Pulse 86 12/15/20 08:00 Resp 22 12/15/20 08:00 BP 122/77 12/15/20 08:00 Pulse Ox 96 12/15/20 08:00 Intake & Output 12/14/20 12/15/20 12/15/20 18:59 06:59 18:59 Intake Total 3053 1944.496 869.727 Output Total 1160 600 150 Balance 1893 1344.496 719.727 Weight 72 kg 73 kg Intake: IV 3053 1487.5 300 0.9 Pressure Bag 3 Cefepime 1 gm In Sodium 100 37.5 100 Chloride 0.9% 50 ml @ 100 mls/hr IVPB ONCE ONE Rx# :[id number] Sodium Chloride 0.9% 1, 700 1200 200 000 ml @ 50 mls/hr IV . Q20H [facility] Rx#:[id number] Sodium Chloride 0.9% 2, 2000 000 ml @ 999 mls/hr IV . Q2H1M [facility] Rx#:[id number] Vancomycin 1,500 mg In 250 250 Sodium Chloride 0.9% 250 ml @ 125 mls/hr IVPB Q16H [facility] Rx#:[id number] Intake, IV Titration 156.996 219.727 Amount Amiodarone 450 mg In 219.727 Dextrose 5% in Water 250 ml @ 0.5 MG/MIN 16.667 mls/hr IV .Q15H [facility] Rx#: [id number] Heparin Sod,Pork in 0.45% 156.996 0 NaCl 25,000 unit In 0.45 % NaCl 1 250ml.bag @ 12 UNITS/KG/HR 8.64 mls/hr IV .Q24H [facility] Rx#: [id number] Oral 300 350 Output: Urine 1160 600 150 Other: Voiding Method Indwelling Catheter Indwelling Catheter Indwelling Catheter - Exam General appearance: The patient is alert, appears in no acute distress. HET: Head is normocephalic and atraumatic. Neck: Supple without lymphadenopathy. Trachea midline. Extremities: Normal skin color and turgor. Bilateral +2 pitting edema to lower extremities. Warm to touch, good capillary refill approximately 3-5 seconds. Feet and toes are pink. Patient able to wiggle her toes. Nonpainful to palpation. Neurological: Awake, alert, follows simple commands. - Labs CBC & Chem 7: 12/15/20 04:20 12/15/20 04:20 Labs: Abnormal Lab Results - Last 24 Hours (Table) 12/14/20 12/15/20 12/15/20 Range/Units 21:40 04:20 04:20 WBC 13.4 H (3.8-10.6) k/uL RBC 3.33 L (3.80-5.40) m/uL Hgb 11.0 L (11.4-16.0) gm/dL Hct 31.4 L (34.0-46.0) % Neutrophils # 11.6 H (1.3-7.7) k/uL APTT 31.0 H >200.0 H* (22.0-30.0) sec Sodium (137-145) mmol/L Potassium (3.5-5.1) mmol/L BUN (7-17) mg/dL Glucose (74-99) mg/dL Calcium (8.4-10.2) mg/dL AST (14-36) U/L ALT (4-34) U/L Total Protein (6.3-8.2) g/dL Albumin (3.5-5.0) g/dL 12/15/20 Range/Units 04:20 WBC (3.8-10.6) k/uL RBC (3.80-5.40) m/uL Hgb (11.4-16.0) gm/dL Hct (34.0-46.0) % Neutrophils # (1.3-7.7) k/uL APTT (22.0-30.0) sec Sodium 133 L (137-145) mmol/L Potassium 3.0 L (3.5-5.1) mmol/L BUN 32 H (7-17) mg/dL Glucose 130 H (74-99) mg/dL Calcium 7.3 L (8.4-10.2) mg/dL AST 85 H (14-36) U/L ALT 78 H (4-34) U/L Total Protein 4.9 L (6.3-8.2) g/dL Albumin 2.7 L (3.5-5.0) g/dL Microbiology - Last 24 Hours (Table) 12/12/20 20:30 Blood Culture Gram Stain - Final Blood Blood Culture - Final Staphylococcus epidermidis Coagulase Negative Staph Assessment and Plan Assessment: 1. Bilateral lower extremity vascular changes, likely microvascular. Arterial study MADDIE right 0.95, left 1.07 2. Bilateral lower extremity edema 3. Altered mental status 4. Hyponatremia 5. Hyperkalemia 6. Multiple sclerosis 7. History of hypertension Plan: 1. Lower extremity Arterial study ordered and reviewed 2. Keep feet warm with blankets 3. Continue medical management 4. No indications for any vascular surgical intervention Thank you for this consultation we will sign off at this time The impression and plan of care has been dictated as directed. Dr. Villatoro I performed a history and examination of this patient, discussed the same with the dictator. I agree with the dictator's note ,documented as a scribe. Any additional findings or plans will be noted.
[2020-12-15] MEDS: APIXABAN 5 MG TAB PO SCH ×2 (11:26→21:58)
[2020-12-15] MEDS: AMIODARONE 200 MG TAB PO SCH ×2 (11:27→21:58)
--- NOTE | 2020-12-15 11:33 | P.PN ---
Subjective This is a pleasant 65-year-old female past medical history significant for multiple sclerosis who came to the emergency department secondary to altered mental status. She was seen in evaluation by Dr. Chinchilla yesterday secondary to abnormal troponins. Echocardiogram was obtained revealing preserved LV systolic function with ejection fraction of 60-65% with a small pericardial effusion noted at the right ventricle. Today she went into atrial fibrillation with rapid ventricular rate. According to the nurse she was quite confused this morning and was pulling at her IV lines. She is currently restrained. She is not responding verbally however her eyes are open. Blood pressure 98/42 heart rate currently 133 at its peak was 163. She has no documented prior history of atrial fibrillation. Laboratory data reviewed, WBC 15.1, hemoglobin 12.8, platelets 196, sodium 129, potassium 4.1, creatinine 1.08, TSH 3.04. 12/15/2020 Pt is seen and examined sitting up in bed in no acute distress. She is awake but not conversing appropriately, per the nurse this is her baseline level of cognition. She converted to sinus mechanism while on amiodarone infusion. Blood pressure 127/77 heart rate 86 afebrile maintaining oxygen saturation on room air. Laboratory data reviewed, WBC 13.4, hemoglobin 11, platelets 171, sodium 133, potassium 3.0, creatinine 0.71. GENERAL: Well-appearing, well-nourished and in no acute distress. NECK: Supple without JVD or thyromegaly. LUNGS: Breath sounds clear to auscultation bilaterally. Respiration equal and unlabored. No wheezes, rales or rhonchi. HEART: Regular rate and rhythm without murmurs, rubs or gallops. S1 and S2 heard. EXTREMITIES: Normal range of motion, 2+ bilateral lower extremity non-pitting edema. No clubbing or cyanosis. Peripheral pulses intact. ASSESSMENT New onset paroxysmal atrial fibrillation with rapid ventricular rate Altered mental status Hyponatremia Acute kidney injury Hyperkalemia History of MS Hypertension PLAN Transition to oral amiodarone 200 mg BID, first dose now. After one week decrease to 200 mg daily. CHADS-VASC score is 2. We recommend Eliquis 5 mg twice a day for the next 30 days and then can be discontinued. Ongoing medical management. We will follow along as needed, follow up with Dr. Chinchilla upon discharge. Nurse Practitioner note has been reviewed, I agree with a documented findings and plan of care. Patient was seen and examined. Objective - Vital Signs Vital signs: Vital Signs Temp 97.9 F 12/15/20 08:00 Pulse 86 12/15/20 08:00 Resp 22 12/15/20 08:00 BP 122/77 12/15/20 08:00 Pulse Ox 96 12/15/20 08:00 Intake & Output 12/14/20 12/15/20 12/15/20 18:59 06:59 18:59 Intake Total 3053 1944.496 869.727 Output Total 1160 600 150 Balance 1893 1344.496 719.727 Weight 72 kg 73 kg Intake: IV 3053 1487.5 300 0.9 Pressure Bag 3 Cefepime 1 gm In Sodium 100 37.5 100 Chloride 0.9% 50 ml @ 100 mls/hr IVPB ONCE ONE Rx# :[id number] Sodium Chloride 0.9% 1, 700 1200 200 000 ml @ 50 mls/hr IV . Q20H [facility] Rx#:[id number] Sodium Chloride 0.9% 2, 2000 000 ml @ 999 mls/hr IV . Q2H1M [facility] Rx#:[id number] Vancomycin 1,500 mg In 250 250 Sodium Chloride 0.9% 250 ml @ 125 mls/hr IVPB Q16H [facility] Rx#:[id number] Intake, IV Titration 156.996 219.727 Amount Amiodarone 450 mg In 219.727 Dextrose 5% in Water 250 ml @ 0.5 MG/MIN 16.667 mls/hr IV .Q15H [facility] Rx#: [id number] Heparin Sod,Pork in 0.45% 156.996 0 NaCl 25,000 unit In 0.45 % NaCl 1 250ml.bag @ 12 UNITS/KG/HR 8.64 mls/hr IV .Q24H [facility] Rx#: [id number] Oral 300 350 Output: Urine 1160 600 150 Other: Voiding Method Indwelling Catheter Indwelling Catheter Indwelling Catheter - Labs CBC & Chem 7: 12/15/20 04:20 12/15/20 04:20 Labs: Abnormal Lab Results - Last 24 Hours (Table) 12/14/20 12/15/20 12/15/20 Range/Units 21:40 04:20 04:20 WBC 13.4 H (3.8-10.6) k/uL RBC 3.33 L (3.80-5.40) m/uL Hgb 11.0 L (11.4-16.0) gm/dL Hct 31.4 L (34.0-46.0) % Neutrophils # 11.6 H (1.3-7.7) k/uL APTT 31.0 H >200.0 H* (22.0-30.0) sec Sodium (137-145) mmol/L Potassium (3.5-5.1) mmol/L BUN (7-17) mg/dL Glucose (74-99) mg/dL Calcium (8.4-10.2) mg/dL AST (14-36) U/L ALT (4-34) U/L Total Protein (6.3-8.2) g/dL Albumin (3.5-5.0) g/dL 12/15/20 Range/Units 04:20 WBC (3.8-10.6) k/uL RBC (3.80-5.40) m/uL Hgb (11.4-16.0) gm/dL Hct (34.0-46.0) % Neutrophils # (1.3-7.7) k/uL APTT (22.0-30.0) sec Sodium 133 L (137-145) mmol/L Potassium 3.0 L (3.5-5.1) mmol/L BUN 32 H (7-17) mg/dL Glucose 130 H (74-99) mg/dL Calcium 7.3 L (8.4-10.2) mg/dL AST 85 H (14-36) U/L ALT 78 H (4-34) U/L Total Protein 4.9 L (6.3-8.2) g/dL Albumin 2.7 L (3.5-5.0) g/dL Microbiology - Last 24 Hours (Table) 12/12/20 20:30 Blood Culture Gram Stain - Final Blood Blood Culture - Final Staphylococcus epidermidis Coagulase Negative Staph
--- NOTE | 2020-12-15 12:29 | P.PN ---
Subjective Progress Note Date: 12/15/20 Principal diagnosis: Altered mental status, hyponatremia This is a pleasant 65-year-old female patient who has a history of multiple sclerosis diagnosed in 1997 and has been on Rebif for many years. She also has a history of hypertension, right breast cancer status post mastectomy followed by chemotherapy in 2011. She was recently here in the hospital for bilateral lower extremity weakness and edema. She was treated for an exacerbation of her multiple sclerosis high-dose steroids for 3 days and subsequently discharged on 11/12/2020. She presented here to the emergency room yesterday after a visiting nurse found her to have altered mental status. She had been actively hallucinating. She was found not to have any new weaknesses or sensory deficits. She was still on prednisone taper from her previous admission. He was found to be hypoglycemic with a glucose of 54 and given an amp of dextrose. White count of 24.2. Sodium of 119. Potassium 7.2. Chloride 88. Creatinine 1.22. Troponin 0.077. Urinalysis without evidence of infection. Urine drug screen positive for tricyclic antidepressants. Christianson virus not detected. She was initiated on 3% normal saline at 30 MLS per hour and admitted to the intensive care unit. Seen today in consultation in the ICU. She is currently awake and alert. She is continuously repeating "do not shoot me" though is able to state that she is in the hospital. She follows simple commands. She is moving her upper extremities. Some weakness on the left side which she usually wears a brace on. Lower extremities with no significant mobility and movement of the lower extremities due to her MS. Computed tomography scan of the brain revealed no acute bleed or mass effect. 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 His x-ray reveals no active cardiopulmonary disease. Today's labs reveal a white count 26.1. Hemoglobin 15.2. Neutrophils 19.7. Sodium 126. Potassium 5.0. Creatinine 1.04. He remains on Solu-Cortef 100 mg IV every 8 hours, 3% normal saline at 30 MLS per hour, Lovenox for DVT prophylaxis. On 12/14/2020 patient seen in follow-up in the intensive care unit. She is currently lethargic, but is responsive to verbal stimulation, she is oriented to self, but when asked if she knows where she is at she states "No", when asked if she knows what date it is she states "No". Appears to be in no acute distress, room air pulse ox is 95%, she has no running IVs, apparently she pulled out her triple-lumen central line catheter early this morning and currently she has no IV access. Currently blood pressure is 84/64, she is in sinus mechanism, clinically she appears to be dry, patient has not been eating or drinking very much by mouth. She did have a temperature elevation yesterday in the evening with a temp of 100F. He has not required vasopressor support. Her blood cultures were positive for staph epidermidis that her likely related to contamination, and the patient is currently on vancomycin. Patient also went into A. fib with RVR this morning and was started on amiodarone infusion. Today's labs have been reviewed, white blood cell count is 15.1, hemoglobin is 12.8, serum sodium is 129, improving, potassium is 4.1, chloride is 95, BUN is 60 creatinine 1.08, AST is 54, ALT is 77, alk phos is 59, TSH was within normal limits at 3.040, pro calcitonin level was negative at 6.4, patient had a troponin elevation at 0.077, and subsequent 1 increased to 0.877. Cardiology service is following. Her echocardiogram showed preserved LV function with an EF of 60-65%, no significant valvular disease, and small pericardial effusion. Patient's oral membranes are dry, and her pulses are poorly palpable, and vascular surgery evaluation will be obtained On 12/15/2020 patient seen in follow-up in the intensive care unit. She is responding verbally, but she will not open her eyes. Appears a bit lethargic, but responds to verbal questioning, she is oriented to self and place. Appears to be breathing comfortably, no acute distress, she is on room air with a pulse ox of 96%, blood pressure is 122/77, no fever or chills. Her 0.9 normal saline is infusing at 100 mL per hour, amiodarone is currently at 0.5 mg/h. Patient is in sinus mechanism right now. No new chest x-ray today, no cough, no chest pain complaints. No fever or chills, today's labs have been reviewed showing white blood cell, 13.4, hemoglobin of 11, yesterday patient was placed on heparin infusion for A. fib with RVR, her PTT this morning was greater than 200, for which the heparin drip was placed on hold and restarted at a lower rate per protocol. No evidence of bleeding, hemoglobin is 12.0, platelet count is 171. Serum sodium is improving and is up to 133, potassium is 3.0, B1 is 32 creatinine 0.7. AST and ALT are a bit improved, AST is 85 and ALT 78, alkaline phosphatase is 56 within normal limits, no nausea vomiting or diarrhea, her oral intake remains limited. Her blood cultures from 2020 showed staph epidermidis, follow blood cultures have been sent and showed no growth so far. Patient is covered with cefepime. Continues on stress doses of hydrocortisone 100 mg every 8 hours, her blood pressure has been stable, she is not requiring any norepinephrine or other vasopressor support. We will per weaning the hydrocortisone. Objective - Vital Signs Vital signs: Vital Signs Temp 97.9 F 12/15/20 08:00 Pulse 86 12/15/20 08:00 Resp 22 12/15/20 08:00 BP 122/77 12/15/20 08:00 Pulse Ox 96 12/15/20 08:00 Intake & Output 12/14/20 12/15/20 12/15/20 18:59 06:59 18:59 Intake Total 3053 1944.496 869.727 Output Total 1160 600 150 Balance 1893 1344.496 719.727 Weight 72 kg 73 kg Intake: IV 3053 1487.5 300 0.9 Pressure Bag 3 Cefepime 1 gm In Sodium 100 37.5 100 Chloride 0.9% 50 ml @ 100 mls/hr IVPB ONCE ONE Rx# :[id number] Sodium Chloride 0.9% 1, 700 1200 200 000 ml @ 50 mls/hr IV . Q20H [facility] Rx#:[id number] Sodium Chloride 0.9% 2, 2000 000 ml @ 999 mls/hr IV . Q2H1M ONE Rx#:[id number] Vancomycin 1,500 mg In 250 250 Sodium Chloride 0.9% 250 ml @ 125 mls/hr IVPB Q16H [facility] Rx#:[id number] Intake, IV Titration 156.996 219.727 Amount Amiodarone 450 mg In 219.727 Dextrose 5% in Water 250 ml @ 0.5 MG/MIN 16.667 mls/hr IV .Q15H [facility] Rx#: [id number] Heparin Sod,Pork in 0.45% 156.996 0 NaCl 25,000 unit In 0.45 % NaCl 1 250ml.bag @ 12 UNITS/KG/HR 8.64 mls/hr IV .Q24H [facility] Rx#: [id number] Oral 300 350 Output: Urine 1160 600 150 Other: Voiding Method Indwelling Catheter Indwelling Catheter Indwelling Catheter - Exam GENERAL EXAM: Lethargic, 65-year-old white female, on room air, with pulse ox of 95%, more responsive, but will not open her eyes but verbally responds appropriately comfortable in no apparent distress. HEAD: Normocephalic/atraumatic. EYES: Normal reaction of pupils, equal size. Conjunctiva pink, sclera white. NOSE: Clear with pink turbinates. THROAT: No erythema or exudates. NECK: No masses, no JVD, no thyroid enlargement, no adenopathy. CHEST: No chest wall deformity. Symmetrical expansion. LUNGS: Equal air entry with no crackles, wheeze, rhonchi or dullness. CVS: Irregular rate and rhythm, normal S1 and S2, no gallops, no murmurs, no rubs ABDOMEN: Soft, nontender. No hepatosplenomegaly, normal bowel sounds, no guarding or rigidity. EXTREMITIES: No clubbing, no edema, no cyanosis, 2+ pulses and upper and lower extremities. MUSCULOSKELETAL: Muscle strength and tone normal. SPINE: No scoliosis or deformity SKIN: No rashes CENTRAL NERVOUS SYSTEM: Lethargic, but arousable, answers to verbal stimuli, No focal deficits, tone is normal in all 4 extremities. - Labs CBC & Chem 7: 12/15/20 04:20 12/15/20 04:20 Labs: Abnormal Lab Results - Last 24 Hours (Table) 12/14/20 12/15/20 12/15/20 Range/Units 21:40 04:20 04:20 WBC 13.4 H (3.8-10.6) k/uL RBC 3.33 L (3.80-5.40) m/uL Hgb 11.0 L (11.4-16.0) gm/dL Hct 31.4 L (34.0-46.0) % Neutrophils # 11.6 H (1.3-7.7) k/uL APTT 31.0 H >200.0 H* (22.0-30.0) sec Sodium (137-145) mmol/L Potassium (3.5-5.1) mmol/L BUN (7-17) mg/dL Glucose (74-99) mg/dL Calcium (8.4-10.2) mg/dL AST (14-36) U/L ALT (4-34) U/L Total Protein (6.3-8.2) g/dL Albumin (3.5-5.0) g/dL 12/15/20 Range/Units 04:20 WBC (3.8-10.6) k/uL RBC (3.80-5.40) m/uL Hgb (11.4-16.0) gm/dL Hct (34.0-46.0) % Neutrophils # (1.3-7.7) k/uL APTT (22.0-30.0) sec Sodium 133 L (137-145) mmol/L Potassium 3.0 L (3.5-5.1) mmol/L BUN 32 H (7-17) mg/dL Glucose 130 H (74-99) mg/dL Calcium 7.3 L (8.4-10.2) mg/dL AST 85 H (14-36) U/L ALT 78 H (4-34) U/L Total Protein 4.9 L (6.3-8.2) g/dL Albumin 2.7 L (3.5-5.0) g/dL Microbiology - Last 24 Hours (Table) 12/14/20 10:11 Blood Culture - Preliminary Blood No Growth after 24 hours 12/14/20 10:11 Blood Culture - Preliminary Blood No Growth after 24 hours 12/12/20 20:30 Blood Culture Gram Stain - Final Blood Blood Culture - Final Staphylococcus epidermidis Coagulase Negative Staph Assessment and Plan Plan: Assessment: #1. Altered mental status, likely related to metabolic encephalopathy, seems to be improving #2. Hyponatremia, likely hypovolemic, patient has had a poor oral intake and was suspected to be dehydrated patient was admitted with a serum sodium of 119, currently her serum sodium is up to 133. Patient did require infusion of hypertonic saline which is currently off. Patient received additional fluid boluses, not currently requiring vasopressor support #3. Rule out possibility of sepsis, and patient is currently covered with vancomycin, we will add cefepime. Blood culture showed staph epidermidis, likely contamination, follow-up cultures have been negative thus far #4. Leukocytosis possibility of sepsis is being considered #5. A. fib with RVR, back in sinus right now #6. Elevated troponin, rule out possibility of non-ST elevated myocardial infarction #7. History of hypertension #8. History of breast cancer with previous mastectomy status post chemotherapy #9. Hyperkalemia related to acute kidney injury, nonsteroid all agents, losartan, spironolactone, improved, nephrology service is following #10. History of MS Plan: Patient is doing well, hemodynamically stable Back in sinus rhythm We'll discontinue heparin infusion, we'll start the patient on oral anticoagulation in the form of Eliquis 5 mg twice daily Patient has been transitioned to oral amiodarone Cultures have been reviewed, follow-up blood cultures have been negative thus far No fever or chills, we'll discontinue vancomycin We'll cut back IV fluids to 50 ML per hour, Maintain aspiration precautions, may offer sips of clear liquids if awake and following commands Nephrology recommendations Continue cefepime for empiric antibiotic coverage Cut back hydrocortisone to 50 mg every 8 hours GI and DVT prophylaxis Safety precautions Transfer to [facility] care today I performed a history & physical examination of the patient and discussed their management with my nurse practitioner, Julienne Rodriguez. I reviewed the nurse practitioner's note and agree with the documented findings and plan of care. Lung sounds are positive for diminished breath sounds. The findings and the impression was discussed with the patient. I attest to the documentation by the nurse practitioner. Time with Patient: Greater than 30
--- NOTE | 2020-12-15 13:57 | PN ---
PROGRESS NOTE 65-year-old white female remains on Solu-Cortef 50 IV q.8h per Neurology for MS flare, she is being treated with cefepime and vanco for possible sepsis. She is transferred out of the ICU. She is more awake and alert at different times. Her white count of 13.4 today, done from 15.1, hemoglobin 11. She is on heparin drip. Sodium 133, potassium 3.0, AST 85, ALT 78, total bilirubin is negative. Temperature 97.5, pulse 77 to 80, respiratory 18 to 20. Blood pressure 117/74, O2 95% on room air. Cardiovascular: S1, S2. Lungs clear. GI soft. Extremities show 2+ edema. She had a positive blood culture, possible contaminant, Staph epidermidis. All other blood cultures are negative. Wait for Dr. Whitney to treat her for possible sepsis. Await for cardiology, Dr. No. She probably has some kind of encephalopathy secondary to possibly sepsis versus MS flare for which Neurology is treating her. PROGNOSIS: Extremely guarded. MMODL / IJN: [id number] /
--- NOTE | 2020-12-15 19:02 | P.PN ---
Subjective Progress Note Date: 12/15/20 I'm seeing the patient for the first time. Please refer to Dr. Dill's note for further neurological detailed history. Per the patient's nurse, there is no worsening of the patient condition. She continues to be drowsy but awake verbal. Objective - Vital Signs Vital signs: Vital Signs Temp 98.2 F 12/15/20 16:00 Pulse 90 12/15/20 16:00 Resp 20 12/15/20 16:00 BP 122/77 12/15/20 16:00 Pulse Ox 99 12/15/20 16:00 Intake & Output 12/14/20 12/15/20 12/15/20 18:59 06:59 18:59 Intake Total 3053 4330.740 8322.727 Output Total 1160 600 150 Balance 1893 9417.919 3761.727 Weight 72 kg 73 kg Intake: IV 3053 1487.5 500 0.9 Pressure Bag 3 Cefepime 1 gm In Sodium 100 37.5 100 Chloride 0.9% 50 ml @ 100 mls/hr IVPB ONCE ONE Rx# :[id number] Sodium Chloride 0.9% 1, 700 1200 400 000 ml @ 50 mls/hr IV . Q20H [facility] Rx#:[id number] Sodium Chloride 0.9% 2, 2000 000 ml @ 999 mls/hr IV . Q2H1M ONE Rx#:[id number] Vancomycin 1,500 mg In 250 250 Sodium Chloride 0.9% 250 ml @ 125 mls/hr IVPB Q16H [facility] Rx#:[id number] Intake, IV Titration 156.996 219.727 Amount Amiodarone 450 mg In 219.727 Dextrose 5% in Water 250 ml @ 0.5 MG/MIN 16.667 mls/hr IV .Q15H [facility] Rx#: [id number] Heparin Sod,Pork in 0.45% 156.996 0 NaCl 25,000 unit In 0.45 % NaCl 1 250ml.bag @ 12 UNITS/KG/HR 8.64 mls/hr IV .Q24H [facility] Rx#: [id number] Oral 300 590 Output: Urine 1160 600 150 Other: Voiding Method Indwelling Catheter Indwelling Catheter Indwelling Catheter - Exam Gen.: The patient is reclining in the bed. She is in distress. Neck: Supple without carotid bruits Neurological examination Limited because of her cooperation. Mental status: The patient is drowsy but is awakeable to voice. She is oriented to self and place. She stated the year is 1973. she is following few simple commands. Cranial nerves: Pupils are 5 mm, equal and reactive. The patient does blink to visual threat. There is no obvious facial asymmetry. Motor: Strength: She is moving bilateral upper extremities upper gravity. And moving her ankles dorsiflexion/plantar flexion. Deep tendon reflexes: Patellar reflexes are absent. Plantar responses are extensor bilaterally. - Labs CBC & Chem 7: 12/15/20 04:20 12/15/20 04:20 Labs: Abnormal Lab Results - Last 24 Hours (Table) 12/14/20 12/15/20 12/15/20 Range/Units 21:40 04:20 04:20 WBC 13.4 H (3.8-10.6) k/uL RBC 3.33 L (3.80-5.40) m/uL Hgb 11.0 L (11.4-16.0) gm/dL Hct 31.4 L (34.0-46.0) % Neutrophils # 11.6 H (1.3-7.7) k/uL APTT 31.0 H >200.0 H* (22.0-30.0) sec Sodium (137-145) mmol/L Potassium (3.5-5.1) mmol/L BUN (7-17) mg/dL Glucose (74-99) mg/dL Calcium (8.4-10.2) mg/dL AST (14-36) U/L ALT (4-34) U/L Total Protein (6.3-8.2) g/dL Albumin (3.5-5.0) g/dL 12/15/20 Range/Units 04:20 WBC (3.8-10.6) k/uL RBC (3.80-5.40) m/uL Hgb (11.4-16.0) gm/dL Hct (34.0-46.0) % Neutrophils # (1.3-7.7) k/uL APTT (22.0-30.0) sec Sodium 133 L (137-145) mmol/L Potassium 3.0 L (3.5-5.1) mmol/L BUN 32 H (7-17) mg/dL Glucose 130 H (74-99) mg/dL Calcium 7.3 L (8.4-10.2) mg/dL AST 85 H (14-36) U/L ALT 78 H (4-34) U/L Total Protein 4.9 L (6.3-8.2) g/dL Albumin 2.7 L (3.5-5.0) g/dL Microbiology - Last 24 Hours (Table) 12/14/20 10:11 Blood Culture - Preliminary Blood No Growth after 24 hours 12/14/20 10:11 Blood Culture - Preliminary Blood No Growth after 24 hours 12/12/20 20:30 Blood Culture Gram Stain - Final Blood Blood Culture - Final Staphylococcus epidermidis Coagulase Negative Staph Assessment and Plan Assessment: Altered mental status due to metabolic encephalopathy (hyponatremia, elevated LFT's) and component of possibly septic encephalopathy Also has component of delerium Hyponatremia---improving Leukocytosis possibly sepsis. Patient is on vancomycin and cefepime---trending down History of multiple sclerosis History of hypertension A. fib with RVR back in sinus rhythm Elevated troponin History of breast cancer with previous mastectomy status post chemotherapy Plan: TSH is 3.04 which is normal. AST of 85 and ALT of 78 on 12/15/2020. Rebif was placed on hold because of possible infection. To be restarted when infection has resolved. I ordered ammonia level and if it elevated up with defer the management to the primary/ICU team. Physical therapy and occupation therapy are consulted. Nephrology is on board. Will defer the rest of medical management to the ICU and primary team. The plan is discussed with the patient's nurse. Will follow-up with the patient sporadically. Corey Davidson MD Neuro-Hospitalist Time with Patient: Less than 30
[2020-12-15 20:27] LABS: Glucose,Whole Blood 125 mg/dL (75-99)
[2020-12-15] MEDS ORDERED: AMIODARONE 200 MG TAB PO SCH (21:00)
[2020-12-15] MEDS: AMITRIPTYLINE HCL 25 MG TAB PO SCH (21:58)
[2020-12-15] MEDS ORDERED: IOPAMIDOL CONTRAST (ORAL USE) VIAL PO PRN (23:15)
--- NOTE | 2020-12-15 23:15 | P.CONS ---
History of Present Illness - Reason for Consult Consult date: 12/15/20 Sepsis Requesting physician: Daniel Johns - Chief Complaint mental status changes x 1 day - History of Present Illness Patient is a 65-year-old female presenting to [facility] on 12/12/2020 for evaluation of mental status changes patient was complaining of weakness on the left side of her body (for the patient to have mental status changes and patient was advised to go to the hospital patient was hallucinating actively on presentation to hospital patient is aggressive and have low-grade fever 100 400 on 12/13/2020 patient has been hemodynamically stable respiratory status stable no evidence of any hypoxemia patient did have 104,000 on admission that is slowly trending down creatinine was normal no symptoms mildly elevated. Has been negative clinically was positive for tricyclic Klonopin 0 was negative patient did have a chest x-ray no acute cardiopulmonary process patient did provide her IV access and was hypotensive elevated A. fib with RVR over the patient was transferred to the ICU and infectious was consulted for management concern for possible sepsis patient is currently being treated with a dorsal pneumonia, cefepime and vancomycin with subsequent discontinued patient at the time evaluation remains to be lethargic but did ask simple question she is currently on room air denies any headache chest pain shortness of the cough abd ominal pain and no diarrhea has been reported Review of Systems Positive point has been mentioned in HPI complete review could not be obtained because of underlying mental status Past Medical History Past Medical History: Cancer, Hypertension, Musculoskeletal Disorder Additional Past Medical History / Comment(s): hx migraines, MS, edema lower legs and feet, walker- currently using wheelchair, brace on left arm, bladder urgency-wears briefs, hx breast cancer History of Any Multi-Drug Resistant Organisms: None Reported Past Surgical History: Appendectomy, Breast Surgery Additional Past Surgical History / Comment(s): 6 surgeries for breast cancer(rt lumpectomy/mastectomy/reconstructive), shiraz cataracts, Past Anesthesia/Blood Transfusion Reactions: Motion Sickness Smoking Status: Unknown if ever smoked - Past Family History Father Family Medical History: Cancer Sister(s) Family Medical History: Deep Vein Thrombosis (DVT) Medications and Allergies Home Medications Medication Instructions Recorded Confirmed Type Acetaminophen [Tylenol] 650 mg PO Q6H PRN 08/24/15 12/12/20 History Amitriptyline HCl [Elavil] 25 mg PO HS 08/24/15 12/12/20 History Anastrozole [Arimidex] 1 mg PO DAILY 08/24/15 12/12/20 History Baclofen 10 mg PO BID PRN 08/24/15 12/12/20 History Calcium Carbonate [Calcium] 600 mg PO DAILY 08/24/15 12/12/20 History Multivitamins, Thera [Multivitamin 1 tab PO DAILY 08/24/15 12/12/20 History (formulary)] Niacin 500 mg PO HS 08/24/15 12/12/20 History Pregabalin [Lyrica] 50 mg PO BID #60 cap 08/31/15 12/12/20 Rx Atenolol [Tenormin] 100 mg PO BID 10/18/20 12/12/20 History Docusate [Colace] 100 mg PO DAILY PRN 10/18/20 12/12/20 History Fesoterodine Fumarate [Toviaz] 8 mg PO DAILY 10/18/20 12/12/20 History HYDROcodone/APAP 5-325MG [[place] 1 tab PO BID PRN 10/18/20 12/12/20 History 5-325] Meloxicam [Mobic] 7.5 mg PO DAILY 10/18/20 12/12/20 History Rebif 44 Mcg/0.5 Ml 44 mcg SQ MOWEFR 10/18/20 12/12/20 History Spironolactone [Aldactone] 50 mg PO DAILY 10/18/20 12/12/20 History Alendronate Sodium [Fosamax] 70 mg PO MO 10/20/20 12/12/20 History Losartan Potassium [Cozaar] 100 mg PO DAILY 10/20/20 12/12/20 History Cholecalciferol (Vitamin D3) 75 mcg PO DAILY 11/06/20 12/12/20 History [Vitamin D3 (3000 Iu)] Potassium Gluconate 99 mg PO DAILY 12/12/20 12/12/20 History predniSONE See Taper PO DIRECTED 12/12/20 12/12/20 History Apixaban [Eliquis] 5 mg PO BID #60 tab 12/15/20 Rx Allergies Allergy/AdvReac Type Severity Reaction Status Date / Time No Known Allergies Allergy Verified 12/12/20 18:05 Physical Exam Vitals: Vital Signs Temp Pulse Resp BP BP Pulse Ox 12/15/20 08:00 97.9 F 86 22 122/77 96 12/15/20 07:00 86 22 136/86 97 12/15/20 06:00 79 20 158/91 99 12/15/20 05:00 78 19 142/91 98 12/15/20 04:00 96.9 F L 81 20 98/82 147/81 99 12/15/20 03:00 78 16 123/89 99 12/15/20 02:00 80 21 123/77 97 12/15/20 01:00 73 17 127/77 98 12/15/20 00:16 75 19 127/77 98 12/15/20 00:00 97.7 F 71 25 H 102/76 98 12/14/20 23:00 75 18 121/106 97 12/14/20 22:00 77 21 135/87 89 L 12/14/20 21:00 77 18 136/84 97 12/14/20 20:00 98.2 F 77 16 121/81 97 12/14/20 19:00 82 20 117/73 98 12/14/20 18:30 81 21 109/69 98 12/14/20 18:00 77 19 113/54 93 L 12/14/20 17:30 78 20 100/73 96 12/14/20 17:00 79 18 106/78 99 12/14/20 16:30 75 28 H 108/75 98 12/14/20 16:00 75 18 100/58 98 12/14/20 15:30 77 18 109/69 96 12/14/20 15:15 84 19 102/67 97 12/14/20 15:00 83 20 100/63 97 12/14/20 14:45 85 18 97/51 98 12/14/20 14:30 86 26 H 98/62 97 12/14/20 14:15 82 19 103/65 93 L 12/14/20 14:00 85 19 95/60 98 12/14/20 13:45 84 41 H 88/58 97 12/14/20 13:30 86 19 97/56 96 12/14/20 13:15 87 24 97/65 97 12/14/20 13:00 120 H 16 87/67 96 12/14/20 12:45 130 H 32 H 84/49 97 12/14/20 12:30 130 H 17 78/58 99 12/14/20 12:15 137 H 14 88/59 96 12/14/20 12:00 138 H 18 94/61 12/14/20 11:45 141 H 14 99/65 95 12/14/20 11:30 156 H 18 92/51 95 12/14/20 11:15 138 H 18 100/32 92 L 12/14/20 11:00 133 H 18 98/42 95 12/14/20 10:45 156 H 16 113/55 12/14/20 10:30 152 H 22 97 Intake and Output 12/14/20 12/15/20 12/15/20 22:59 06:59 14:59 Intake Total 1025.0 1319.496 869.727 Output Total 555 400 150 Balance 470.0 919.496 719.727 Intake: IV 825.0 1062.5 300 Cefepime 1 gm In Sodium 25.0 12.5 100 Chloride 0.9% 50 ml @ 100 mls/hr IVPB ONCE ONE Rx# :[id number] Sodium Chloride 0.9% 1, 800 800 200 000 ml @ 50 mls/hr IV . Q20H [facility] Rx#:[id number] Vancomycin 1,500 mg In 250 Sodium Chloride 0.9% 250 ml @ 125 mls/hr IVPB Q16H [facility] Rx#:[id number] Intake, IV Titration 156.996 219.727 Amount Amiodarone 450 mg In 219.727 Dextrose 5% in Water 250 ml @ 0.5 MG/MIN 16.667 mls/hr IV .Q15H [facility] Rx#: [id number] Heparin Sod,Pork in 0.45% 156.996 0 NaCl 25,000 unit In 0.45 % NaCl 1 250ml.bag @ 12 UNITS/KG/HR 8.64 mls/hr IV .Q24H [facility] Rx#: [id number] Oral 200 100 350 Output: Urine 555 400 150 Other: Voiding Method Indwelling Catheter Indwelling Catheter Indwelling Catheter Weight 73 kg GENERAL DESCRIPTION: Middle-aged male lying in bed, no distress. No tachypnea or accessory muscle of respiration use. HEENT: Shows Pallor , no scleral icterus. Oral mucous membrane is dry. No pharyngeal erythema or thrush NECK: Trachea central, no thyromegaly. LUNGS: Unlabored breathing. Clear to auscultation anteriorly. No wheeze or crackle. HEART: S1, S2, regular rate and rhythm. No loud murmur ABDOMEN: Soft, no tenderness , guarding or rigidity, no organomegaly EXTREMITIES: No edema of feet. SKIN: No rash, no masses palpable. NEUROLOGICAL: The patient is awake, alert, oriented x3, mood and affect normal. Results CBC & Chem 7: 12/15/20 04:20 12/15/20 04:20 Labs: Abnormal Lab Results - Last 24 Hours (Table) 12/14/20 12/15/20 12/15/20 Range/Units 21:40 04:20 04:20 WBC 13.4 H (3.8-10.6) k/uL RBC 3.33 L (3.80-5.40) m/uL Hgb 11.0 L (11.4-16.0) gm/dL Hct 31.4 L (34.0-46.0) % Neutrophils # 11.6 H (1.3-7.7) k/uL APTT 31.0 H >200.0 H* (22.0-30.0) sec Sodium (137-145) mmol/L Potassium (3.5-5.1) mmol/L BUN (7-17) mg/dL Glucose (74-99) mg/dL Calcium (8.4-10.2) mg/dL AST (14-36) U/L ALT (4-34) U/L Total Protein (6.3-8.2) g/dL Albumin (3.5-5.0) g/dL 12/15/20 Range/Units 04:20 WBC (3.8-10.6) k/uL RBC (3.80-5.40) m/uL Hgb (11.4-16.0) gm/dL Hct (34.0-46.0) % Neutrophils # (1.3-7.7) k/uL APTT (22.0-30.0) sec Sodium 133 L (137-145) mmol/L Potassium 3.0 L (3.5-5.1) mmol/L BUN 32 H (7-17) mg/dL Glucose 130 H (74-99) mg/dL Calcium 7.3 L (8.4-10.2) mg/dL AST 85 H (14-36) U/L ALT 78 H (4-34) U/L Total Protein 4.9 L (6.3-8.2) g/dL Albumin 2.7 L (3.5-5.0) g/dL Microbiology - Last 24 Hours (Table) 12/12/20 20:30 Blood Culture Gram Stain - Final Blood Blood Culture - Final Staphylococcus epidermidis Coagulase Negative Staph Assessment and Plan Assessment: 1-patient presented to hospital with mental status changes which is likely multifactorial in this patient who did have elevated white count work-up so far did not point towards any specific infection with a negative chest x-ray UA has been negative and evidence of any cellulitis 2-positive blood culture with staph epidermidis more likely skin contaminant repeat blood culture negative 3-deep tissue injury to the sacral area with stage II pressure area and bilateral upper posterior thigh stage II pressure ulcers no cellulitis Plan: 1-we will obtain a CT abdominal pelvis to make sure no evidence of any intra- abdominal source of her fever elevated white count 2-continue cefepime 3-agree with discontinuation of the vancomycin 4-local wound care to the sacral and bilateral posterior thigh wounds with Aquacel silver dressing keep the area dry and of the pressure Time with Patient: Greater than 30
[2020-12-16] MEDS: SODIUM CHLORIDE 0.9% 1,000 ML IV SCH ×3 (01:07→23:42)
[2020-12-16 06:19] LABS: Glucose,Whole Blood 98 mg/dL (75-99)
--- NOTE | 2020-12-16 08:51 | P.ARTDOP ---
Arterial Doppler LOWER EXTREMITY ARTERIAL DOPPLER: DATE OF SERVICE: 12/14/2020 Reason for study: No recent listed. Doppler waveforms: Multiphasic throughout. Toe waveforms are blunted bilaterally Pulse volume recording: []. Pressure gradients: None noted. Ankle-brachial indices: 0.95 on the right and greater than 1 on the left. Toe brachial indices: [] on the right, [] on the left Impression: Findings suggest a normal study except at the foot level. Strongly suspect vasospastic phenomenon. Clinical correlation suggested.
[2020-12-16] MEDS ORDERED: VANCOMYCIN TROUGH DUE 1 EACH MISC MISCELLANE ONE (09:00)
[2020-12-16] MEDS: CEFEPIME 1 GM in SODIUM CHLORIDE 0.9% 50 ML IVPB SCH ×2 (10:30→20:20)
[2020-12-16] MEDS: HYDROCORTISONE SUCCINATE 100 MG/2 ML VIAL IV SCH ×3 (10:30→23:42)
[2020-12-16] MEDS: ANASTROZOLE 1 MG TAB PO SCH (10:37)
[2020-12-16] MEDS: AMIODARONE 200 MG TAB PO SCH ×2 (10:38→20:20)
[2020-12-16] MEDS: CHOLECALCIFEROL 25 MCG (1000 IU) TABLET PO SCH (10:38)
[2020-12-16] MEDS: APIXABAN 5 MG TAB PO SCH ×2 (10:38→20:20)
[2020-12-16] MEDS: PREGABALIN 50 MG CAP PO SCH ×2 (10:38→20:20)
[2020-12-16] MEDS: METOPROLOL TARTRATE 25 MG TAB PO SCH ×2 (10:38→20:20)
[2020-12-16] MEDS: CALCIUM CARBONATE 500 MG CHEWABLE PO SCH (10:38)
[2020-12-16 10:40] LABS: African American GFR (CKD) >90 (>60 ml/min/1.73 sqM); Anion Gap 4 mmol/L; Blood Urea Nitrogen 27 mg/dL (7-17); Carbon Dioxide 24 mmol/L (22-30); Chloride 109 mmol/L (98-107); Glucose 86 mg/dL (74-99); Non-African American GFR(CKD) 79 (>60 ml/min/1.73 sqM); Potassium 3.3 mmol/L (3.5-5.1); Sodium 137 mmol/L (137-145)
--- NOTE | 2020-12-16 12:09 | CT ---
EXAMINATION TYPE: CT abdomen pelvis w con DATE OF EXAM: 12/16/2020 COMPARISON: None INDICATION: Sepsis. DLP: 1747.9 mGycm, Automated exposure control for dose reduction was used. CONTRAST: 100 mL of Isovue 300. Study performed without Oral Contrast TECHNIQUE: Axial images were obtained from above the diaphragm to the pubic rami in the axial plane a t 5 mm thick sections. Reconstructed images are reviewed on the computer in the coronal plane. FINDINGS: Limited CT sections are obtained the lung bases. There is some compressive atelectasis within the de pendent right lung base. Very minimal right pleural fluid may be present.. CT ABDOMEN: Liver: Normal Spleen: Normal Pancreas: Normal Adrenal glands: The adrenal glands are normal. Gallbladder: Normal Kidneys: No masses are evident. No hydronephrosis is present. No cysts are present. Delayed images were obtained through the kidneys, which remain unremarkable. Aorta: Vascular calcification is within the aorta. There is fusiform prominence of the mid abdominal aorta with the greatest AP diameter 2.9 cm. This terminates above the bifurcation. Inferior vena cava: Normal. CT PELVIS: Loops of bowel within the abdomen and pelvis are normal. There are loops of bowel which are incom pletely distended or lack oral contrast limiting their evaluation. Appendix: Not visualized. No suspicious dilated tubular structure or inflammatory changes are evident . Urinary bladder: Decompressed with Villatoro catheter with limited evaluation Genitourinary structures: Uterus appears unremarkable. Adnexal regions are normal. Osseous structures: No suspicious lytic or sclerotic lesions. Subcutaneous calcifications are present within the gluteal regions and within the anterior abdominal wall. Facet degenerative changes are wi thin the scoliotic lumbar spine. IMPRESSIONS: 1. Fusiform prominence mid abdominal aorta with an AP diameter of 2.9 cm. 2. Atelectasis with very minimal fluid right posterior lung base. 3. Subcutaneous calcifications
[2020-12-16] MEDS ORDERED: ALENDRONATE 70 MG PO PRN (12:14)
[2020-12-16 12:28] LABS: Glucose,Whole Blood 68 mg/dL (75-99)
[2020-12-16 12:46] LABS: Glucose,Whole Blood 90 mg/dL (75-99)
[2020-12-16] MEDS: POTASSIUM CHLORIDE 20 MEQ in WATER FOR INJECTION 1 100ML.BAG IVPB SCH ×2 (12:56→15:54)
[2020-12-16] MEDS: REBIF PO SCH (12:56)
[2020-12-16] MEDS ORDERED: REBIF PO SCH (13:00)
--- NOTE | 2020-12-16 14:05 | P.PN ---
Subjective Progress Note Date: 12/13/20 Principal diagnosis: Acute toxic metabolic encephalopathy This is a pleasant 65-year-old female patient who has a history of multiple sclerosis diagnosed in 1997 and has been on Rebif for many years. She also has a history of hypertension, right breast cancer status post mastectomy followed by chemotherapy in 2011. She was recently here in the hospital for bilateral lower extremity weakness and edema. She was treated for an exacerbation of her multiple sclerosis high-dose steroids for 3 days and subsequently discharged on 11/12/2020. She presented here to the emergency room yesterday after a visiting nurse found her to have altered mental status. She had been actively hallucinating. She was found not to have any new weaknesses or sensory deficits. She was still on prednisone taper from her previous admission. He was found to be hypoglycemic with a glucose of 54 and given an amp of dextrose. White count of 24.2. Sodium of 119. Potassium 7.2. Chloride 88. Creatinine 1.22. Troponin 0.077. Urinalysis without evidence of infection. Urine drug screen positive for tricyclic antidepressants. Christianson virus not detected. She was initiated on 3% normal saline at 30 MLS per hour and admitted to the intensive care unit. Seen today in consultation in the ICU. She is currently awake and alert. She is continuously repeating "do not shoot me" though is able to state that she is in the hospital. She follows simple commands. She is moving her upper extremities. Some weakness on the left side which she usually wears a brace on. Lower extremities with no significant mobility and movement of the lower extremities due to her MS. Computed tomography scan of the brain revealed no acute bleed or mass effect. 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 His x-ray reveals no active cardiopulmonary disease. Today's labs reveal a white count 26.1. Hemoglobin 15.2. Neutrophils 19.7. Sodium 126. Potassium 5.0. Creatinine 1.04. He remains on Solu-Cortef 100 mg IV every 8 hours, 3% normal saline at 30 MLS per hour, Lovenox for DVT prophylaxis. On 12/14/2020 patient seen in follow-up in the intensive care unit. She is cur rently lethargic, but is responsive to verbal stimulation, she is oriented to self, but when asked if she knows where she is at she states "No", when asked if she knows what date it is she states "No". Appears to be in no acute distress, room air pulse ox is 95%, she has no running IVs, apparently she pulled out her triple-lumen central line catheter early this morning and currently she has no IV access. Currently blood pressure is 84/64, she is in sinus mechanism, clinically she appears to be dry, patient has not been eating or drinking very much by mouth. She did have a temperature elevation yesterday in the evening with a temp of 100F. He has not required vasopressor support. Her blood cultures were positive for staph epidermidis that her likely related to contamination, and the patient is currently on vancomycin. Patient also went into A. fib with RVR this morning and was started on amiodarone infusion. Today's labs have been reviewed, white blood cell count is 15.1, hemoglobin is 12.8, serum sodium is 129, improving, potassium is 4.1, chloride is 95, BUN is 60 creatinine 1.08, AST is 54, ALT is 77, alk phos is 59, TSH was within normal limits at 3.040, pro calcitonin level was negative at 6.4, patient had a troponin elevation at 0.077, and subsequent 1 increased to 0.877. Cardiology service is following. Her echocardiogram showed preserved LV function with an EF of 60-65%, no significant valvular disease, and small pericardial effusion. Patient's oral membranes are dry, and her pulses are poorly palpable, and vascular surgery evaluation will be obtained On 12/15/2020 patient seen in follow-up in the intensive care unit. She is responding verbally, but she will not open her eyes. Appears a bit lethargic, but responds to verbal questioning, she is oriented to self and place. Appears to be breathing comfortably, no acute distress, she is on room air with a pulse ox of 96%, blood pressure is 122/77, no fever or chills. Her 0.9 normal saline is infusing at 100 mL per hour, amiodarone is currently at 0.5 mg/h. Patient is in sinus mechanism right now. No new chest x-ray today, no cough, no chest pain complaints. No fever or chills, today's labs have been reviewed showing white blood cell, 13.4, hemoglobin of 11, yesterday patient was placed on heparin infusion for A. fib with RVR, her PTT this morning was greater than 200, for which the heparin drip was placed on hold and restarted at a lower rate per protocol. No evidence of bleeding, hemoglobin is 12.0, platelet count is 171. Serum sodium is improving and is up to 133, potassium is 3.0, B1 is 32 creatinine 0.7. AST and ALT are a bit improved, AST is 85 and ALT 78, alkaline phosphatase is 56 within normal limits, no nausea vomiting or diarrhea, her oral intake remains limited. Her blood cultures from 2020 showed staph epidermidis, follow blood cultures have been sent and showed no growth so far. Patient is covered with cefepime. Continues on stress doses of hydrocortisone 100 mg every 8 hours, her blood pressure has been stable, she is not requiring any norepinephrine or other vasopressor support. We will per weaning the hydrocortisone. Patient was reevaluated today on 12/16/2020, patient is not responding to any verbal or painful stimuli, does not even open her eyes, remains lethargic, however she is not in respiratory distress. And her neurological status is being addressed by neurology on the case. Basic metabolic profile is basically normal except for low potassium of 3.3, WBC count is coming down to 13.4 hemoglobin is 11, follow-up blood cultures have been negative Objective - Vital Signs Vital signs: Vital Signs Temp 99 F 12/16/20 08:33 Pulse 90 12/16/20 12:55 Resp 16 12/16/20 12:55 BP 128/64 12/16/20 12:55 Pulse Ox 95 12/16/20 12:55 Intake & Output 12/15/20 12/16/20 12/16/20 18:59 06:59 18:59 Intake Total 1429.727 240 Output Total 150 625 Balance 1279.727 -385 Weight 84.5 kg 84.5 kg Intake: IV 500 Cefepime 1 gm In Sodium 100 Chloride 0.9% 50 ml @ 100 mls/hr IVPB ONCE ONE Rx# :[id number] Sodium Chloride 0.9% 1, 400 000 ml @ 50 mls/hr IV . Q20H [facility] Rx#:[id number] Intake, IV Titration 219.727 Amount Amiodarone 450 mg In 219.727 Dextrose 5% in Water 250 ml @ 0.5 MG/MIN 16.667 mls/hr IV .Q15H [facility] Rx#: [id number] Heparin Sod,Pork in 0.45% 0 NaCl 25,000 unit In 0.45 % NaCl 1 250ml.bag @ 12 UNITS/KG/HR 8.64 mls/hr IV .Q24H [facility] Rx#: [id number] Oral 710 240 Output: Urine 150 625 Other: Voiding Method Indwelling Catheter Indwelling Catheter - Exam GENERAL EXAM: Revealed a 65-year-old female unresponsive to painful stimuli or verbal stimuli, but not in respiratory distress. HEAD: Normocephalic/atraumatic. ENT patient seems to be grinding her teeth, otherwise no significant findings. CHEST: No chest wall deformity. Symmetrical expansion. LUNGS: Diminished breath sounds at the bases no crackles or rhonchi or wheezes. CVS: Irregular rate and rhythm, normal S1 and S2, no gallops, no murmurs, no rub s ABDOMEN: Soft, nontender. No hepatosplenomegaly, normal bowel sounds, no guarding or rigidity. EXTREMITIES: No clubbing, no edema, no cyanosis, 2+ pulses and upper and lower extremities. SKIN: No rashes CENTRAL NERVOUS SYSTEM: Unresponsive to painful or verbal stimuli. Being addressed by neurology on the case. - Labs CBC & Chem 7: 12/15/20 04:20 12/16/20 08:50 Labs: Abnormal Lab Results - Last 24 Hours (Table) 12/15/20 12/16/20 12/16/20 Range/Units 20:25 08:50 12:17 Potassium 3.3 L (3.5-5.1) mmol/L Chloride 109 H (98-107) mmol/L BUN 27 H (7-17) mg/dL POC Glucose (mg/dL) 125 H 68 L (75-99) mg/dL Calcium 7.0 L (8.4-10.2) mg/dL Microbiology - Last 24 Hours (Table) 12/14/20 10:11 Blood Culture - Preliminary Blood No Growth after 48 hours 12/14/20 10:11 Blood Culture - Preliminary Blood No Growth after 48 hours Assessment and Plan Assessment: #1. Altered mental status, likely related to metabolic encephalopathy, seems to be improving #2. Hyponatremia, likely hypovolemic, patient has had a poor oral intake and was suspected to be dehydrated patient was admitted with a serum sodium of 119, currently her serum sodium is up to 133. Patient did require infusion of hypertonic saline which is currently off. Patient received additional fluid boluses, not currently requiring vasopressor support #3. Rule out possibility of sepsis, and patient is currently covered with vancomycin, we will add cefepime. Blood culture showed staph epidermidis, likely contamination, follow-up cultures have been negative thus far #4. Leukocytosis possibility of sepsis is being considered #5. A. fib with RVR, back in sinus right now #6. Elevated troponin, rule out possibility of non-ST elevated myocardial infarction #7. History of hypertension #8. History of breast cancer with previous mastectomy status post chemotherapy #9. Hyperkalemia related to acute kidney injury, nonsteroid all agents, losartan, spironolactone, improved, nephrology service is following #10. History of MS Recommendation: Continue present supportive care measures as per other consultants, no active pulmonary issues to be addressed at this point, we'll sign off and see the patient on when necessary basis. Time with Patient: Less than 30
--- NOTE | 2020-12-16 14:41 | P.CN ---
Psychiatric Consult - . Consult date: 12/16/20 Consult:: IDENTIFYING DATA: This patient is a , retired, 65-year-old female with a significant history of multiple sclerosis who was admitted for altered mental status. HISTORY OF PRESENT ILLNESS: The patient presented to the hospital 12/12/2020, presenting with altered mental status. Upon evaluation, the patient was found to have significant hyponatremia and hypokalemia, severe hyperkalemia, and positive blood cultures with Staphylococcus epidermidis. The patient has been admitted and is being treated for delirium/acute toxic metabolic encephalopathy. Psychiatry has been consulted for evaluation of delirium and oral buccal dyskinesia. At this time, the patient is arousable but very somnolent. She does allow this provider to speak with her "Mario" Davion Andersen who is present in the room. The patient's reports that the patient began experiencing altered mental status this past Monday. He does note that the night prior to Monday morning, the patient woke up multiple times at night and appeared to be distended and having difficulty urinating. He reports that the following morning the patient began acting very weird and began acting very hysterical. He states that the patient constantly repeated to herself that "they're going to shoot me." She appeared to be fearful and difficult to direct. Prior to this admission to this hospital, the patient has not had any reported history of episodes like this before. The patient's notes that she has been receiving treatment with prednisone with a recent increase in the medication one to 2 weeks prior to this admission. In regards psychiatric history, the patient's denies any significant history of psychiatric pathology. He reports that the patient has had no prior history of depressive episodes or bipolar episodes. He denies any peers excessive energy, increase Colace activity, pressured speech, or grandiosity. He reports the patient was briefly eating and sleeping well. He states that the patient has never endorsed any suicidal or homicidal ideation, intention, and/or plan. He further states that the patient has never attempted suicide in the past. As for the oral movements that patient is currently experiencing, this is a new presentation that has not been present prior to this hospitalization. PAST PSYCHIATRIC HISTORY: The patient's denies any history of psychiatric illness for the patient. He reports that the patient has not been on any psychotropic medications prior to this admission. Reviewed the patient's home medications includes Elavil 25 mg at bedtime, likely used for migraine or insomnia. The patient has not had any previous psychiatric hospitalizations. The patient is currently not open with any outpatient psychiatric follow-up. The patient has not had any prior a ttempts at suicide. PAST MEDICAL HISTORY: Past Medical History: Cancer, Hypertension, Musculoskeletal Disorder Additional Past Medical History / Comment(s): hx migraines, MS, edema lower legs and feet, walker- currently using wheelchair, brace on left arm, bladder urgency-wears briefs, hx breast cancer History of Any Multi-Drug Resistant Organisms: None Reported Past Surgical History: Appendectomy, Breast Surgery Additional Past Surgical History / Comment(s): 6 surgeries for breast cancer(rt lumpectomy/mastectomy/reconstructive), shiraz cataracts, Past Anesthesia/Blood Transfusion Reactions: Motion Sickness Smoking Status: Unknown if ever smoked ALLERGIES: NO KNOWN DRUG ALLERGIES CHEMICAL DEPENDENCY HISTORY: the patient's reports that the patient is a former smoker. He states that she hasn't smoked in more than 10 years. He reports that the patient does not drink, use marijuana, or engage in any illicit substance use. FAMILY PSYCHIATRIC/SUBSTANCE USE HISTORY: unable to obtain SOCIAL HISTORY: The patient has been for 28 years to her Davion Andersen who is present in the room. The patient has no children. Is retired. 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 MENTAL STATUS EXAM: Gener Appearance: Patient appears to be her stated age, is dressed in hospital gown, and appears to have fair hygiene and grooming. Eye contact is poor. Behavior: Patiet is calmly lying in bed without any agitated behavior. She is arousable but somnolent. Speech: Patient's speech is nonspontaneous, dysarthric at times, low in volume. Mood/Affect: Patient reports their mood is "okay", affect is somnolent. Suicidality/Homicidality: patient denies any suicidal or homicidal ideation, intention, and/or plan. Perceptions: Patient denies any visual hallucinations [and denies any auditory hallucnations Though content/process: Thee is no evidence of any delusional thought content and thought process is linear and goal-directed. Memory and concentration: The patient is alert and oriented to person only. She is unable to verbalize her location or at the correct date. Concentration appears to be poor at this time. Judgment and insight: poor Vital Signs Temp 99 F 12/16/20 08:33 Pulse 90 12/16/20 12:55 Resp 16 12/16/20 12:55 BP 128/64 12/16/20 12:55 Pulse Ox 95 12/16/20 12:55 Intake & Output 12/15/20 12/16/20 12/16/20 18:59 06:59 18:59 Intake Total 1429.727 240 Output Total 150 625 Balance 1279.727 -385 Weight 84.5 kg 84.5 kg Intake: IV 500 Cefepime 1 gm In Sodium 100 Chloride 0.9% 50 ml @ 100 mls/hr IVPB ONCE ONE Rx# :[id number] Sodium Chloride 0.9% 1, 400 000 ml @ 50 mls/hr IV . Q20H [facility] Rx#:[id number] Intake, IV Titration 219.727 Amount Amiodarone 450 mg In 219.727 Dextrose 5% in Water 250 ml @ 0.5 MG/MIN 16.667 mls/hr IV .[facility]H [facility] Rx#: [id number] Heparin Sod,Pork in 0.45% 0 NaCl 25,000 unit In 0.45 % NaCl 1 250ml.bag @ 12 UNITS/KG/HR 8.64 mls/hr IV .Q24H [facility] Rx#: [id number] Oral 710 240 Output: Urine 150 625 Other: Voiding Method Indwelling Catheter Indwelling Catheter IMPRESSIONS: Altered mental status, resolving - likely secondary to acute metabolic enc ephalopathy Hyponatremia - resolved Hypokalemia Multiple sclerosis Leukocytosis, possibly sepsis Dyskinesia - unknown etiology at this time, the patient is currently not on a medication regimen that would typically contribute to a specific oral buccal dyskinesia. Rare occasions may be precipitated by Elavil. PLAN: -At this time patient DOES NOT meet criteria for inpatient psychiatric admi ssion. -Delirium precautions recommended with patient including - avoiding use of narcotics and HOOD FITTER sedatives, limit anticholinergic medications when possible, frequent re-orientation, minimize use of restraints, open window shades during the day and close them at night -Would recommend the following medication changes/additions: No psychiatric medications are recommended at this time. Will hold elavil to observe for improvement in oral buccal movements. -Psychiatry will sign off at this point, please contact with any questions. 12/16/20 14:26
--- NOTE | 2020-12-16 15:15 | P.PN ---
Subjective Progress Note Date: 12/16/20 The patient was seen at bedside and per the patient nurse and she continues to have the fluctuation of her mentation. Per the patient's significant otherwise spoke with over the phone and he stated that the patient had the other infection in the past and she had altered mentation. Objective - Vital Signs Vital signs: Vital Signs Temp 99 F 12/16/20 08:33 Pulse 90 12/16/20 12:55 Resp 16 12/16/20 12:55 BP 128/64 12/16/20 12:55 Pulse Ox 95 12/16/20 12:55 Intake & Output 12/15/20 12/16/20 12/16/20 18:59 06:59 18:59 Intake Total 1429.727 240 Output Total 150 625 Balance 1279.727 -385 Weight 84.5 kg 84.5 kg Intake: IV 500 Cefepime 1 gm In Sodium 100 Chloride 0.9% 50 ml @ 100 mls/hr IVPB ONCE ONE Rx# :[id number] Sodium Chloride 0.9% 1, 400 000 ml @ 50 mls/hr IV . Q20H [facility] Rx#:[id number] Intake, IV Titration 219.727 Amount Amiodarone 450 mg In 219.727 Dextrose 5% in Water 250 ml @ 0.5 MG/MIN 16.667 mls/hr IV .Q15H [facility] Rx#: [id number] Heparin Sod,Pork in 0.45% 0 NaCl 25,000 unit In 0.45 % NaCl 1 250ml.bag @ 12 UNITS/KG/HR 8.64 mls/hr IV .Q24H [facility] Rx#: [id number] Oral 710 240 Output: Urine 150 625 Other: Voiding Method Indwelling Catheter Indwelling Catheter - Exam Gen.: The patient is reclining in the bed. She is in not in distress. Neurological examination Limited because of her cooperation. Mental status: The patient is drowsy but is awakeable to voice. She is oriented to self. she is following few simple commands (showing thumbs up, wiggling toes and stick tongue out). Cranial nerves: The patient would have her eyes closed but with verbal stimuli she would open her eyes. Pupils are 5 mm, equal and reactive. Primary gaze are midline There is no obvious facial asymmetry. She has orobuccal movement like clenching, chewing movement and following commands during these episodes. Motor: Strength: She is moving bilateral upper extremities above gravity. And moving her ankles dorsiflexion/plantar flexion. Deep tendon reflexes: Patellar reflexes are absent. Plantar responses are extensor bilaterally. - Labs CBC & Chem 7: 12/15/20 04:20 12/16/20 08:50 Labs: Abnormal Lab Results - Last 24 Hours (Table) 12/15/20 12/16/20 12/16/20 Range/Units 20:25 08:50 12:17 Potassium 3.3 L (3.5-5.1) mmol/L Chloride 109 H (98-107) mmol/L BUN 27 H (7-17) mg/dL POC Glucose (mg/dL) 125 H 68 L (75-99) mg/dL Calcium 7.0 L (8.4-10.2) mg/dL Microbiology - Last 24 Hours (Table) 12/14/20 10:11 Blood Culture - Preliminary Blood No Growth after 48 hours 12/14/20 10:11 Blood Culture - Preliminary Blood No Growth after 48 hours Assessment and Plan Assessment: Altered mental status due to metabolic encephalopathy and component of possibly septic encephalopathy. Also has component of delerium Hyponatremia---improving Leukocytosis possibly sepsis. Patient is on vancomycin and cefepime---trending down History of multiple sclerosis History of hypertension A. fib with RVR back in sinus rhythm Elevated troponin History of breast cancer with previous mastectomy status post chemotherapy Plan: TSH is 3.04 which is normal. AST of 85 and ALT of 78 on 12/15/2020. Ammonia level is less than 9. Restarted Rebif since I did not feel there is contraindication at this time. Physical therapy and occupation therapy are consulted. I consulted psychiatry since the patient had oral buccal movement is symmetric automatism but was responsive during the episodes and they recommended to hold off on Elavil. Upon reviewing the patient's the medication during the hospital stay it seems that the patient had the Haldol during hospital stay. Regarding the local leukocytosis. U/A was negative for UTI. Blood culture are positive for staphy epidermis but otherwise no growth. Rule out meningoecephalitis (seems atypical since following few simple commands). I.D. team was notified about my that possibility and ordered Lumbar puncture. I ordered EEG. Nephrology is on board. Will defer the rest of medical management to the primary team. The plan is discussed with the patient's nurse, primary team and patient significant other (Vinicio) via phone. Corey Davidson MD Neuro-Hospitalist Time with Patient: Less than 30
[2020-12-16 17:05] LABS: Glucose,Whole Blood 83 mg/dL (75-99)
[2020-12-16] MEDS: SPIRONOLACTONE 25 MG TAB PO SCH (17:51)
--- NOTE | 2020-12-16 17:52 | PN ---
PROGRESS NOTE 65-year-old female. Family wants her Rebif restarted. They are going to bring it in from home. She is being treated for presumptive sepsis. She had a false-positive blood culture. Sodium was 137, potassium 3.3. We are going to restart her back on low- dose Aldactone. Hyperkalemia is not there. Her white count is back down to 13.4. She is being treated for mild sacral ulcer. There is no other source of severe infection that we can see. Cardiovascular S1, S2. Lungs clear. GI soft. Extremities sacral ulcer. Wait for Dr. Whitney's recommendations for long-term antibiotics. Restart Rebif. PT/OT. Treat. Cefepime. Vancomycin is on hold. Wound care is being done. Arterial Doppler of the legs is negative except for vasospastic response of the lower extremity and foot. 2+ edema. Neuro: She is not opening her eyes very much. She has given appropriate responses, though. ASSESSMENT AND PLAN: 1. MS exacerbation. 2. Rule out sepsis. 3. Sacral ulcer. 4. She is on Solu-Cortef IV. 5. Start Rebif per her neurologist who called the office today and her , who both want her Rebif started. 6. Psychiatry saw her. They say avoid narcotics and sedatives and limit anticholinergic medicines, reorientation, minimum restraints, up the window shades. No psych medications at this time. 7. Elavil. 8. Please see further orders. MMODL / IJN: [id number] /
[2020-12-16 20:43] LABS: Glucose,Whole Blood 92 mg/dL (75-99)
--- NOTE | 2020-12-16 21:33 | PN ---
PROGRESS NOTE DATE OF SERVICE: 12/16/2020 REASON FOR FOLLOWUP: Urinary tract infection. INTERVAL HISTORY: Patient is afebrile. The patient remains to be sleepy and lethargic and did not answer any questions. No significant changes reported by nursing staff. The patient refused oral contrast for the CT, so has to be done abdomen without contrast. PHYSICAL EXAMINATION: Blood pressure 111/71 with a pulse of 74, temperature 98.2. She is 98% on room air. GENERAL: The patient is a middle-aged female lying in bed in no distress. Respiratory system: Unlabored breathing, clear to auscultation anteriorly. Heart S1, S2. Regular rate and rhythm. Abdomen soft. No tenderness. LABS: BUN of 27, creatinine 0.80. CT of abdomen and pelvis did not show any acute abnormality. DIAGNOSTIC IMPRESSION/PLAN: 1. Patient with positive blood culture, . The patient off vancomycin. 2. Low grade fever and mental status changes. Did have extensive workup and no obvious focus. LP And CSF examination has been requested. 3. The patient to continue with cefepime and monitor clinical course closely. MMODL / IJN: [id number] /
[2020-12-17 06:08] LABS: Glucose,Whole Blood 96 mg/dL (75-99)
[2020-12-17 08:58] LABS: Basophils % (A) 0 %; Eosinophils # (A) 0.1 k/uL (0-0.7); Eosinophils % (A) 1 %; HCT 29.3 % (34.0-46.0); HGB 9.8 gm/dL (11.4-16.0); Lymphocytes # (A) 1.5 k/uL (1.0-4.8); Lymphocytes % (A) 15 %; MCHC 33.4 g/dL (31.0-37.0); MCV 98.7 fL (80.0-100.0); Macrocytosis Slight; Mean Platelet Volume 7.4; Monocytes # (A) 0.3 k/uL (0-1.0); Monocytes % (A) 3 %; Neutrophils # (A) 8.6 k/uL (1.3-7.7); Neutrophils % (A) 81 %; Platelet Count 152 k/uL (150-450); RBC 2.97 m/uL (3.80-5.40); RDW 14.9 % (11.5-15.5); WBC 10.6 k/uL (3.8-10.6)
[2020-12-17 09:04] LABS: ALT 231 U/L (4-34); AST 144 U/L (14-36); African American GFR (CKD) >90 (>60 ml/min/1.73 sqM); Albumin 2.3 g/dL (3.5-5.0); Alkaline Phosphatase 60 U/L (38-126); Anion Gap 2 mmol/L; Blood Urea Nitrogen 24 mg/dL (7-17); Calcium 7.1 mg/dL (8.4-10.2); Carbon Dioxide 22 mmol/L (22-30); Chloride 115 mmol/L (98-107); Glucose 86 mg/dL (74-99); Non-African American GFR(CKD) >90 (>60 ml/min/1.73 sqM); Potassium 3.8 mmol/L (3.5-5.1); Sodium 139 mmol/L (137-145); Total Bilirubin 0.5 mg/dL (0.2-1.3); Total Protein 4.5 g/dL (6.3-8.2)
[2020-12-17] MEDS ORDERED: LORazepam 2 MG/ML INJ IV STA ×2 (09:14→11:09)
[2020-12-17] MEDS ORDERED: levETIRAcetam IV 1,500 MG in SALINE 1 100ML.BAG IVPB STA (09:19)
[2020-12-17] MEDS ORDERED: FUROSEMIDE 10 MG/ML 4 ML VIAL ONE (09:52)
[2020-12-17] MEDS: HYDROCORTISONE SUCCINATE 100 MG/2 ML VIAL IV SCH ×3 (09:55→22:54)
[2020-12-17] MEDS: CEFEPIME 1 GM in SODIUM CHLORIDE 0.9% 50 ML IVPB SCH ×2 (09:55→20:11)
--- NOTE | 2020-12-17 10:55 | P.PN ---
Subjective Patient is seen in follow-up for acute kidney injury, electrolyte imbalance and fluid overload. Renal function back to baseline. Currently undergoing EEG. Blood pressure stable. Vital signs are stable. HEENT: Head exam is unremarkable. Undergoing EEG. LUNGS: Breath sounds decreased. HEART: Rate and Rhythm are regular. ABDOMEN: Soft, no distention. Extremities: 2+ edema. Objective - Vital Signs Vital signs: Vital Signs Temp 98.6 F 12/17/20 09:00 Pulse 90 12/17/20 09:00 Resp 26 H 12/17/20 09:00 BP 121/70 12/17/20 09:00 Pulse Ox 97 12/17/20 09:00 Intake & Output 12/16/20 12/17/20 12/17/20 18:59 06:59 18:59 Intake Total 143 120 Output Total 600 325 Balance -457 -205 Weight 84.5 kg 83.5 kg Intake: Oral 143 120 Output: Urine 600 325 Other: Voiding Method Indwelling Catheter Indwelling Catheter - Labs CBC & Chem 7: 12/17/20 07:13 12/17/20 07:13 Labs: Abnormal Lab Results - Last 24 Hours (Table) 12/16/20 12/17/20 12/17/20 Range/Units 12:17 07:13 07:13 RBC 2.97 L (3.80-5.40) m/uL Hgb 9.8 L (11.4-16.0) gm/dL Hct 29.3 L (34.0-46.0) % Neutrophils # 8.6 H (1.3-7.7) k/uL Chloride 115 H (98-107) mmol/L BUN 24 H (7-17) mg/dL POC Glucose (mg/dL) 68 L (75-99) mg/dL Calcium 7.1 L (8.4-10.2) mg/dL AST 144 H (14-36) U/L ALT 231 H (4-34) U/L Total Protein 4.5 L (6.3-8.2) g/dL Albumin 2.3 L (3.5-5.0) g/dL Microbiology - Last 24 Hours (Table) 12/14/20 10:11 Blood Culture - Preliminary Blood No Growth after 48 hours 12/14/20 10:11 Blood Culture - Preliminary Blood No Growth after 48 hours Assessment and Plan Plan: Assessment: 1. Hypervolemic hyponatremia initially improved with IV Lasix. Sodium level 119 on admission and is 139 today. Now on normal saline. Urine osmolality 284. TSH normal. 2. Hyperkalemia secondary to acute kidney injury, potassium supplementation, nonsteroidals, losartan and spironolactone. Resolved. 3. Acute kidney injury mostly prerenal secondary to diuresis and infection. Resolved. UA benign. 4. Encephalopathy likely related to electrolyte imbalance and infection. Neurology following. 5. History of MS. 6. Hypotension. Cortisol level was normal. She is receiving Solu-Cortef. Blood culture positive for staph epi - likely contamination. Repeat cultures negative. 7. A. fib. Cardiology following. On oral amiodarone, Lopressor and anticoagulation. 8. Volume overload. Plan: Hep-Lock IV fluids. Add Lasix 40 mg IV once daily. Encourage oral intake. Avoid nephrotoxins. Continue to monitor renal function and urine output.
[2020-12-17] MEDS: FUROSEMIDE 10 MG/ML 4 ML VIAL IV SCH (11:08)
[2020-12-17] MEDS: SPIRONOLACTONE 25 MG TAB PO SCH (11:30)
[2020-12-17] MEDS: AMIODARONE 200 MG TAB PO SCH ×2 (11:30→20:11)
[2020-12-17] MEDS: METOPROLOL TARTRATE 25 MG TAB PO SCH ×2 (11:30→20:11)
[2020-12-17] MEDS: APIXABAN 5 MG TAB PO SCH (11:30)
[2020-12-17] MEDS: CHOLECALCIFEROL 25 MCG (1000 IU) TABLET PO SCH (11:31)
[2020-12-17] MEDS: CALCIUM CARBONATE 500 MG CHEWABLE PO SCH (11:31)
[2020-12-17] MEDS: PREGABALIN 50 MG CAP PO SCH ×2 (11:31→20:11)
[2020-12-17] MEDS: ANASTROZOLE 1 MG TAB PO SCH (11:31)
[2020-12-17 11:43] LABS: Glucose,Whole Blood 85 mg/dL (75-99)
--- NOTE | 2020-12-17 16:34 | P.PN ---
Subjective Progress Note Date: 12/17/20 Upon seeing the patient today per the patient nurse she continues to have altered mentation. No visible seizure-like activity for the patient nurse. Objective - Vital Signs Vital signs: Vital Signs Temp 98.1 F 12/17/20 11:23 Pulse 89 12/17/20 11:23 Resp 20 12/17/20 11:23 BP 124/79 12/17/20 11:23 Pulse Ox 97 12/17/20 11:23 Intake & Output 12/16/20 12/17/20 12/17/20 18:59 06:59 18:59 Intake Total 143 120 Output Total 600 325 Balance -457 -205 Weight 84.5 kg 83.5 kg Intake: Oral 143 120 Output: Urine 600 325 Other: Voiding Method Indwelling Catheter Indwelling Catheter - Exam Gen.: The patient is reclining in the bed. She is in not in distress. Neurological examination Limited because of her cooperation. Mental status: The patient is drowsy but is awakeable to voice. She is oriented to self, she stated she was in the hospital and the year was 2020 but after examining again she stated it she was at home and the year was 1989. She was able to tell the state was [place]. She is following few simple commands (orlin wing thumbs up, wiggling toes and stick tongue out). Cranial nerves: The patient would have her eyes closed but with verbal stimuli she would open her eyes. Pupils are 5 mm, equal and reactive. Primary gaze are midline There is no obvious facial asymmetry. She would have head movement and seems continous and moving side to side to moving head to the right. Motor: Strength: She is moving bilateral upper extremities above gravity. And moving her ankles dorsiflexion/plantar flexion. Deep tendon reflexes: Patellar reflexes are absent. Plantar responses are extensor bilaterally. - Labs CBC & Chem 7: 12/17/20 07:13 12/17/20 07:13 Labs: Abnormal Lab Results - Last 24 Hours (Table) 12/17/20 12/17/20 Range/Units 07: 07:13 RBC 2.97 L (3.80-5.40) m/uL Hgb 9.8 L (11.4-16.0) gm/dL Hct 29.3 L (34.0-46.0) % Neutrophils # 8.6 H (1.3-7.7) k/uL Chloride 115 H (98-107) mmol/L BUN 24 H (7-17) mg/dL Calcium 7.1 L (8.4-10.2) mg/dL AST 144 H (14-36) U/L ALT 231 H (4-34) U/L Total Protein 4.5 L (6.3-8.2) g/dL Albumin 2.3 L (3.5-5.0) g/dL Microbiology - Last 24 Hours (Table) 12/14/20 10:11 Blood Culture - Preliminary Blood No Growth after 72 hours 12/14/20 10:11 Blood Culture - Preliminary Blood No Growth after 72 hours Assessment and Plan Assessment: Altered mental status due to metabolic encephalopathy and component of possibly septic encephalopathy. Rule out seizure Also has component of delerium Hyponatremia---improving Leukocytosis possibly sepsis. Patient is on vancomycin and cefepime---trending down History of multiple sclerosis History of hypertension A. fib with RVR back in sinus rhythm Elevated troponin History of breast cancer with previous mastectomy status post chemotherapy Plan: * TSH is 3.04 which is normal. * AST of 85 and ALT of 78 on 12/15/2020. * Ammonia level is less than 9. * U/A was negative for UTI. Blood culture are positive for staphy epidermis but otherwise no growth. * EEG 2.5 hours is ordered and pending final read: During the study she had sharp activity over the right lead that seems rhythmic but had right head tremor associated with it. She was given Ativan total of 2mg and Keppra 15 00mg once and head tremor resolved and sharp activity resolved. I spoke with Dr. Antony and he stated he felt it was artifact from head tremor. Pending final read of EEG. Will get a repeat 2.5 hours EEG for tomorrow. * Rule out meningoecephalitis (seems atypical since following some simple comman ds). * Lumbar puncture is ordered and pending to be done (was told by nurse will not be done till 12/21/2020 since she received Eliquis recently). * Continue Rebif for her multiple sclerosis. * Ordered Vitamin B12, folate and Vitamin B6 level. * Ordered MRI Brain with and without to rule out any intracranial process. * Physical therapy and occupation therapy are consulted. * Primary team ordered Acetylcholine receptor antibody concerning for Myasthenia Gravis which I feel unlikely. * Psychiatry team is on board. * Nephrology team is on board. * Will defer the rest of medical management to the primary team. The plan is discussed with the patient's nurse. Corey Davidson MD Neuro-Hospitalist Time with Patient: Greater than 30
--- NOTE | 2020-12-17 16:43 | EEG ---
ELECTROENCEPHALOGRAM REPORT DATE OF PROCEDURE: 12/17/2020 ELECTROENCEPHALOGRAM (EEG) REPORT: TECHNIQUE: This is a report from a prolonged 2-1/2-hour continuous EEG performed using the 10/20 electrode placement system. HISTORY: Encephalopathy. CURRENT MEDICATIONS: Rebif, Lyrica, metoprolol, hydrocortisone, acetaminophen/hydrocodone, . Please note that per guitar technician annotation, the patient was lying on her right side, which is turn caused artifact. Also head shaking was noted frequently throughout this recording. Portions of the recording were limited in interpretation by the presence of muscle artifact. As mentioned above, the patient was lying on her right side and was not able to be in more of a standard position for testing, per guitar technician annotation. FINDINGS Recording start time: 12/17/2020 at 0821 hours. Recording end time: 12/17/2020 at 1111 hours. EVENTS: During this segment of the recording, no clinical or electrographic seizures were recorded. Numerous times, head shaking was noted during the recording. This was not associated with epileptiform activity. BACKGROUND: Background frequencies were seen in the 7-8 Hz range, unsustained. ACTIVATION: Hyperventilation: Not performed. Photic stimulation: Symmetric driving seen. SLEEP: Stages I and II sleep noted. ABNORMALITIES: Intermittent diffuse 5 to 7 Hz theta range slowing was seen. IMPRESSION: Limited study, abnormal prolonged 2-1/2-hour video EEG. No clinical or electrographic seizures were recorded. No epileptiform activity was present. The diffuse theta range slowing mentioned above is not epileptiform in nature. In combination with the slow background, these findings indicate mild diffuse cerebral dysfunction which may in part be due to medication effect. MMODL / IJN: [id number] /
[2020-12-17 17:14] LABS: Glucose,Whole Blood 84 mg/dL (75-99)
[2020-12-17 20:55] LABS: Glucose,Whole Blood 95 mg/dL (75-99)
--- NOTE | 2020-12-17 23:00 | PN ---
PROGRESS NOTE DATE OF SERVICE: 12/17/2020 REASON FOR FOLLOWUP: Fever. INTERVAL HISTORY: The patient remains afebrile. The patient was more awake and alert this morning. She was breathing comfortably. Denies any headache. No chest pain, shortness of breath or cough. No abdominal pain or diarrhea. PHYSICAL EXAMINATION: Blood pressure 119/72 with a pulse of 100, temperature 98.1. She is 97% on room air. General description is a middle-aged female lying in bed in no distress. RESPIRATORY SYSTEM: Unlabored breathing. Clear to auscultation anteriorly. HEART: S1, S2. Regular rate and rhythm. ABDOMEN: Soft. No tenderness. LABS: White count normal at 10.6, BUN of 24, creatinine 0.66. Liver enzymes mildly elevated. LP was requested, not completed. DIAGNOSTIC IMPRESSION AND PLAN: 1. Patient with positive blood culture, Staphylococcus epidermidis, coagulase-negative Staph. Likely skin contamination. Blood culture repeat has been negative off vancomycin. 2. Patient with elevated white count. No obvious focus of infection. On empiric cefepime. White count normalized. Continue with supportive care. MMODL / IJN: [id number] /
[2020-12-18 06:04] LABS: Glucose,Whole Blood 101 mg/dL (75-99)
[2020-12-18] MEDS: HYDROCORTISONE SUCCINATE 100 MG/2 ML VIAL IV SCH ×2 (08:32→17:06)
[2020-12-18] MEDS: ANASTROZOLE 1 MG TAB PO SCH (08:33)
[2020-12-18] MEDS: CALCIUM CARBONATE 500 MG CHEWABLE PO SCH (08:33)
[2020-12-18] MEDS: CHOLECALCIFEROL 25 MCG (1000 IU) TABLET PO SCH (08:33)
[2020-12-18] MEDS: FUROSEMIDE 10 MG/ML 4 ML VIAL IV SCH (08:33)
[2020-12-18] MEDS: SPIRONOLACTONE 25 MG TAB PO SCH (08:33)
[2020-12-18] MEDS: METOPROLOL TARTRATE 25 MG TAB PO SCH ×2 (08:33→20:24)
[2020-12-18] MEDS: AMIODARONE 200 MG TAB PO SCH ×2 (08:33→20:24)
[2020-12-18] MEDS: PREGABALIN 50 MG CAP PO SCH ×2 (08:33→20:24)
[2020-12-18] MEDS: CEFEPIME 1 GM in SODIUM CHLORIDE 0.9% 50 ML IVPB SCH ×2 (09:02→20:24)
[2020-12-18 09:05] LABS: Potassium 3.5 mmol/L (3.5-5.1)
[2020-12-18 09:06] LABS: African American GFR (CKD) >90 (>60 ml/min/1.73 sqM); Anion Gap 2 mmol/L; Blood Urea Nitrogen 25 mg/dL (7-17); Calcium 6.9 mg/dL (8.4-10.2); Carbon Dioxide 26 mmol/L (22-30); Chloride 107 mmol/L (98-107); Glucose 84 mg/dL (74-99); Magnesium 1.9 mg/dL (1.6-2.3); Non-African American GFR(CKD) >90 (>60 ml/min/1.73 sqM); Sodium 135 mmol/L (137-145)
[2020-12-18] MEDS ORDERED: POTASSIUM CHLORIDE ER 20 MEQ TAB.ER PO STA (11:08)
--- NOTE | 2020-12-18 11:10 | P.PN ---
Subjective Patient is seen in follow-up for acute kidney injury, electrolyte imbalance and fluid overload. Renal function back to baseline. No improvement in mentation. Maintained on IV Lasix. Edema better. Vital signs are stable. HEENT: Head exam is unremarkable. LUNGS: Breath sounds decreased. HEART: Rate and Rhythm are regular. ABDOMEN: Soft, no distention. Extremities: 1+ edema. Objective - Vital Signs Vital signs: Vital Signs Temp 98.3 F 12/18/20 08:31 Pulse 94 12/18/20 08:31 Resp 16 12/18/20 08:31 BP 132/80 12/18/20 08:31 Pulse Ox 97 12/18/20 08:31 Intake & Output 12/17/20 12/18/20 12/18/20 18:59 06:59 18:59 Intake Total 280 480 Output Total 1600 425 Balance -1320 55 Weight 83.5 kg Intake: Intake, IV Titration 100 Amount levETIRAcetam IV 1,500 mg 100 In Saline 1 100ml.bag @ 400 mls/hr IVPB ONCE STA Rx#:[id number] Oral 180 480 Output: Urine 1600 425 Other: Voiding Method Indwelling Catheter Indwelling Catheter Indwelling Catheter - Labs CBC & Chem 7: 12/17/20 07:13 12/18/20 08:21 Labs: Abnormal Lab Results - Last 24 Hours (Table) 12/18/20 12/18/20 Range/Units 05:58 08:21 Sodium 135 L (137-145) mmol/L BUN 25 H (7-17) mg/dL POC Glucose (mg/dL) 101 H (75-99) mg/dL Calcium 6.9 L (8.4-10.2) mg/dL Microbiology - Last 24 Hours (Table) 12/14/20 10:11 Blood Culture - Preliminary Blood No Growth after 72 hours 12/14/20 10:11 Blood Culture - Preliminary Blood No Growth after 72 hours Assessment and Plan Plan: Assessment: 1. Hyponatremia, hypervolemic. 2. Hypokalemia from diuresis. 3. Acute kidney injury mostly prerenal secondary to diuresis and infection. Resolved. UA benign. 4. Encephalopathy likely related to electrolyte imbalance and infection. Neurology following. 5. History of MS. 6. Hypotension. Cortisol level was normal. She is receiving Solu-Cortef. Blood culture positive for staph epi - likely contamination. Repeat cultures negative. Blood pressure now stable. 7. A. fib. Cardiology following. On oral amiodarone, Lopressor and anticoagulation. 8. Volume overload. Improving with diuresis. Plan: Maintain Lasix 40 mg IV once daily. Encourage oral intake. Avoid nephrotoxins.
--- NOTE | 2020-12-18 11:13 | MR ---
EXAMINATION TYPE: MR brain wo/w con DATE OF EXAM: 12/18/2020 COMPARISON: None HISTORY: AMS, history of MS. TECHNIQUE: Multiplanar, multisequence images of the brain and brainstem is performed without and with IV contras t, utilizing 7.5 mL intravenous Gadavist . FINDINGS The ventricles, basal cisterns and sulci over the convexities are within normal limits for the patien t's age and there is no mass effect or shift of midline structures. There are marked multiple areas of abnormal increased signal intensity in the periventricular and sub cortical white matter both cerebral hemispheres and within the corpus callosum. These findings are co nsistent with the provided history of multiple sclerosis. On the diffusion-weighted images, one of th e lesions in the left basal ganglia shows some mild diffusion restriction likely indicating an active plaque. The posterior fossa including the brainstem, fourth ventricle and cerebellar pontine angles appear n ormal. The intraorbital contents appear normal and symmetric. There are mild chronic inflammatory changes in the paranasal sinuses. IMPRESSION: Marked multiple scattered areas of abnormal increased signal intensity in the white matter of both ce rebral hemispheres and within the corpus callosum consistent with the provided history of demyelinati ng disease. There is a suggestion of an active plaque in the left basal ganglia based on diffusion-we ighted imaging.
[2020-12-18 14:07] LABS: Glucose,Whole Blood 89 mg/dL (75-99)
--- NOTE | 2020-12-18 14:19 | PN ---
PROGRESS NOTE DATE OF SERVICE: 12/17/2020 INTERVAL HISTORY: This 64-year-old white female remains in the hospital for altered mental status. Neurology saw her and ordered a 1 or 2 hour EEG. The first one was negative for any seizures. She is unable to open her eyes, but she talks normal and eats normal. Ordered acetyl choline receptor antibodies, which are pending. Cardiovascular S1-S2. Lungs clear. GI soft. Hematology negative Homans. Ophthalmologic pupils equal, round, reactive. ASSESSMENT: 1. Acute encephalopathy, unclear etiology. 2. Ptosis of the eyes. Prognosis guarded. Continue with MS exacerbation treatment and wait for further neurologic workup to rule out seizures, etc. Prognosis guarded. MMODL / IJN: [id number] /
[2020-12-18] MEDS: REBIF PO SCH (14:26)
[2020-12-18 15:45] LABS: Folate, Serum 22.4 ng/mL
--- NOTE | 2020-12-18 16:35 | P.PN ---
Subjective Progress Note Date: 12/18/20 The patient nurse since the patient is pertinent up more today compared to yesterday. MRI the brain is reported as marketed multiple scattered area of abnormal increased signal intensity in the white matter of both cerebral hemisphere and within the corpus callosum consistent with a provided history of demyelinating disease. There is suggestion of an active plaque in the left basal ganglia based on diffusion weighted images. I spoke with the reading radiologist Dr. Scott and he stated that the the lesion enhances with contrast. I personally myself could not review images because of problem with the system. Objective - Vital Signs Vital signs: Vital Signs Temp 98.3 F 12/18/20 08:31 Pulse 86 12/18/20 14:39 Resp 16 12/18/20 14:39 BP 129/86 12/18/20 14:25 Pulse Ox 99 12/18/20 14:25 Intake & Output 12/17/20 12/18/20 12/18/20 18:59 06:59 18:59 Intake Total 280 480 Output Total 4996 415 3695 Balance -1320 55 -2000 Weight 83.5 kg Intake: Intake, IV Titration 100 Amount levETIRAcetam IV 1,500 mg 100 In Saline 1 100ml.bag @ 400 mls/hr IVPB ONCE STA Rx#:[id number] Oral 180 480 Output: Urine 7513 166 1116 Other: Voiding Method Indwelling Catheter Indwelling Catheter Indwelling Catheter - Exam Gen.: The patient is reclining in the bed. She is in not in distress. Neurological examination Limited because of her cooperation. Mental status: The patient is drowsy but is awakeable to voice. She is oriented to self, she stated she was in the hospital and the year was 2020. She was able to name object (cup and spoon). She is following few simple commands (showing thumbs up, wiggling toes and stick tongue out). Cranial nerves: The patient would have her eyes closed but with verbal stimuli she would open her eyes. Pupils are 5 mm, equal and reactive. Primary gaze are midline. There is no obvious facial asymmetry. No dysarthria. Was able to stick her tongue out. Rest of the cranial nerves could not be assess because of the patient cooperation. Motor: Strength: She is moving bilateral upper extremities above gravity. She is moving her left ankle dorsiflexion/plantarflextion antigravity. Deep tendon reflexes: Patellar reflexes are absent. Plantar responses are extensor bilaterally but on further it was on the right. - Labs CBC & Chem 7: 12/17/20 07:13 12/18/20 08:21 Labs: Abnormal Lab Results - Last 24 Hours (Table) 12/18/20 12/18/20 Range/Units 05:58 08:21 Sodium 135 L (137-145) mmol/L BUN 25 H (7-17) mg/dL POC Glucose (mg/dL) 101 H (75-99) mg/dL Calcium 6.9 L (8.4-10.2) mg/dL Microbiology - Last 24 Hours (Table) 12/14/20 10:11 Blood Culture - Preliminary Blood No Growth after 96 hours 12/14/20 10:11 Blood Culture - Preliminary Blood No Growth after 96 hours Assessment and Plan Assessment: Acute Multiple Sclerosis exacerbation (with active plaque in the left basal ganglia. Spoke with reading radiologist and feels it seems enhancing). Unlikely cause of patient altered in mentation. Altered mental status due to metabolic encephalopathy and component of possibly septic encephalopathy. Not seizure after two days of 2.5 hours of EEG.---mentation is improving Also has component of delerium Hyponatremia---improving Leukocytosis possibly sepsis. Patient is on vancomycin and cefepime---trending down History of multiple sclerosis History of hypertension A. fib with RVR back in sinus rhythm Elevated troponin History of breast cancer with previous mastectomy status post chemotherapy Plan: * TSH is 3.04 which is normal. * AST of 85 and ALT of 78 on 12/15/2020. * Ammonia level is less than 9. * U/A was negative for UTI. Blood culture are positive for staphy epidermis but otherwise no growth. * Prolonged 2-1/2 hour EEG: It is reported as limited study, abnormal prolonged 2 1/2 hours video EEG. No clinical or electrographic seizures were recorded. No epileptiform activity was present. The diffuse theta range slowing mentioned above is not epileptiform in nature. In combination with a slow background, the finding indicates mild diffuse cerebral dysfunction which may in part due to medication effect. * Folate level is 22.4 which is normal. Vitamin B12 is 919 which is considered normal. * MRI the brain is reported as marketed multiple scattered area of abnormal increased signal intensity in the white matter of both cerebral hemisphere and within the corpus callosum consistent with a provided history of demyelinating disease. There is suggestion of an active plaque in the left basal ganglia based on diffusion weighted images. I spoke with the reading radiologist Dr. Scott and he stated that the the lesion enhances with contrast. I personally myself could not review images because of problem with the system. * I started the patient on Solu-Medrol 500 mg every 12 hours for 3-5 days. * Repeat EEG 2.5 hours is ordered for today: Preliminary results are there are no focal slowing, no seizures, epileptiform discharges. The background slowing is mild to moderate encephalopathy. Pending final report.. * Unlikely meningoecephalitis (seems atypical since following some simple commands). Lumbar puncture is ordered and pending to be done (was told by nurse will not be done till 12/21/2020 since she is on Eliquis recently). If The patient mentation continue to improve, I recommend for the lumbar puncture to be discontinued. * Rebif for her multiple sclerosis will be stopped and once off Solu-Medrol will restart it. * Vitamin B6 level pending * Physical therapy and occupation therapy are consulted. * Primary team ordered Acetylcholine receptor antibody concerning for Myasthenia Gravis which I feel unlikely. * Infection disease is on board * Psychiatry team is on board. * Nephrology team is on board. * Will defer the rest of medical management to the primary team. The plan is discussed with the patient's nurse and the primary team. Corey Davidson MD Neuro-Hospitalist Time with Patient: Less than 30
[2020-12-18 17:21] LABS: Glucose,Whole Blood 123 mg/dL (75-99)
[2020-12-18 20:25] LABS: Glucose,Whole Blood 155 mg/dL (75-99)
[2020-12-19 06:27] LABS: Glucose,Whole Blood 134 mg/dL (75-99)
--- NOTE | 2020-12-19 06:36 | PN ---
PROGRESS NOTE REASON FOR FOLLOWUP: 1. Positive blood culture likely contaminant. 2. Low-grade fever. INTERVAL HISTORY: Patient remains to be afebrile. The patient is more awake and alert. The patient is breathing comfortably. Denies any headache. No chest pain. No shortness of breath or cough. No abdominal pain or diarrhea. PHYSICAL EXAMINATION: VITAL SIGNS: Blood pressure 122/90 with a pulse of 105, temperature 98.3, she is 94% on room air. GENERAL DESCRIPTION: A middle-aged female lying in bed in no distress. RESPIRATORY SYSTEM: Unlabored breathing, clear to auscultation anteriorly. HEART: S1, S2. Regular rate and rhythm. ABDOMEN: Soft, no tenderness. LABS: BUN of 25, creatinine 0.67. Blood culture repeat has been negative so far. DIAGNOSTIC IMPRESSION AND PLAN: 1. Patient with positive blood culture Staph epi contamination. Repeat blood culture has been negative. The patient is currently off vancomycin. 2. Patient with low-grade fever and did have extensive workup for infectious source and so far culture has been negative. The patient continues to improve. Antibiotic may need to be discontinued. Continue supportive care. MMODL / IJN: [id number] /
[2020-12-19] MEDS: METOPROLOL TARTRATE 25 MG TAB PO SCH ×2 (08:18→20:21)
[2020-12-19] MEDS: CEFEPIME 1 GM in SODIUM CHLORIDE 0.9% 50 ML IVPB SCH (08:18)
[2020-12-19] MEDS: CHOLECALCIFEROL 25 MCG (1000 IU) TABLET PO SCH (08:18)
[2020-12-19] MEDS: SPIRONOLACTONE 25 MG TAB PO SCH (08:18)
[2020-12-19] MEDS: PREGABALIN 50 MG CAP PO SCH ×2 (08:18→20:21)
[2020-12-19] MEDS: CALCIUM CARBONATE 500 MG CHEWABLE PO SCH (08:18)
[2020-12-19] MEDS: AMIODARONE 200 MG TAB PO SCH ×2 (08:18→20:21)
[2020-12-19] MEDS: FUROSEMIDE 10 MG/ML 4 ML VIAL IV SCH (08:18)
[2020-12-19] MEDS: ANASTROZOLE 1 MG TAB PO SCH (08:25)
[2020-12-19 08:42] LABS: African American GFR (CKD) >90 (>60 ml/min/1.73 sqM); Anion Gap 5 mmol/L; Blood Urea Nitrogen 28 mg/dL (7-17); Calcium 7.6 mg/dL (8.4-10.2); Carbon Dioxide 25 mmol/L (22-30); Chloride 106 mmol/L (98-107); Glucose 148 mg/dL (74-99); Non-African American GFR(CKD) >90 (>60 ml/min/1.73 sqM); Potassium 4.2 mmol/L (3.5-5.1); Sodium 136 mmol/L (137-145)
[2020-12-19 11:57] LABS: C Reactive Protein 0.6 mg/dL (<1.0)
[2020-12-19 11:57] LABS: Glucose,Whole Blood 161 mg/dL (75-99)
--- NOTE | 2020-12-19 13:40 | PN ---
PROGRESS NOTE DATE OF SERVICE: 12/18/2020 65-year-old white female. Discussed the case with Dr. Corey Davidson who is going to Treat her for MS exacerbation. MRI of the brain shows a brainstem lesion which could be contributing to her current ptosis of her eyes. Otherwise she is answering questions appropriately. She is just not opening her eyes. She is eating a little bit. CARDIOVASCULAR: S1, S2. LUNGS clear. GI soft. She is pretty much bedridden, unable to open her eyes. She is talking though giving appropriate history. Reflexes are diminished in her legs and arms. She knows the year and her age and who she is. She fluctuates with her levels of consciousness. ASSESSMENT AND PLAN: 1. Acute MS exacerbation, active plaque in left basal ganglia. He says this is unlikely the cause of her altered mental status. 2. She has metabolic encephalopathy possible septic encephalopathy, but Dr. Whitney ruled out any active infection. 3. She had no seizures on a 2.5 hours of EEG. 4. Hyponatremia is improved. 5. Leukocytosis secondary to possible sepsis. 6. She is on vanco and cefepime empirically. White counts have been trending down. 7. Hypertension. 8. Atrial fibrillation with rapid ventricular response. 9. Elevated troponin. 10.History of breast cancer. Previous mastectomy. 11.Ammonia levels are normal. 12.Thyroid levels are normal. 13.UA is negative. 14.Continue current treatment. Will treat for active MS and wait for Dr. Whitney recommendation of infection problem. MMODL / IJN: [id number] /
--- NOTE | 2020-12-19 13:55 | PN ---
PROGRESS NOTE 65-year-old white female with acute encephalopathy secondary to maybe an MS exacerbation. Unable to really open her eyes very much. She is going to be given IV steroids. She has active brain lesions due to an active MS exacerbation on MRI. I discussed the case with as mentioned above. We will continue with high-dose IV steroids over the weekend and see how she does. She is responding appropriately. Cardiovascular S1-S2. Lungs clear. GI soft. Hematology negative Homans. ASSESSMENT: 1. Acute active MS exacerbation with brainstem lesion. 2. Ptosis. 3. Encephalopathy. 4. Sepsis is being ruled out. She has remained on cefepime. No cultures are positive so far for infection. Wait for Infectious Disease recommendations. Still remains on broad-spectrum antibiotics. Please see further orders. MMODL / IJN: [id number] /
--- NOTE | 2020-12-19 14:25 | P.PN ---
Subjective Progress Note Date: 12/19/20 Patient was seen at bedside and she continues to be a with the same today compared to yesterday. She is on IV Solu-Medrol 500mg bid and received her first done on 12/18/20 at 20:24. I spoke with her significant other who is at bedside radiating and he feels like she is doing better on a daily basis. Patient continues to have eye closure an unknown reason but patient could not tell me for how long and neither. Her significant other. Initially patient stated that she's been having it for years but her boyfriend looked me he's had no. Objective - Vital Signs Vital signs: Vital Signs Temp 98.4 F 12/19/20 07:51 Pulse 101 H 12/19/20 08:33 Resp 18 12/19/20 08:33 BP 119/77 12/19/20 07:51 Pulse Ox 96 12/19/20 07:51 Intake & Output 12/18/20 12/19/20 12/19/20 18:59 06:59 18:59 Intake Total 180 Output Total 2000 500 Balance -2000 -320 Weight 82.5 kg Intake: Oral 180 Output: Urine 2000 500 Straight 500 Other: Voiding Method Indwelling Catheter Indwelling Catheter Indwelling Catheter # Bowel Movements 0 - Exam Gen.: The patient is reclining in the bed. She is in not in distress. INTEGUMENTARY: Has significant edema of lower extremities 2+ Neurological examination Mental status: The patient is awake, alert, oriented to self, place and time. She is able to follow commands and is more responsive and verbalizing more today comapred to yesterday. No aphasia. She is following commands appropriately. Cranial nerves: The patient would have her both eyes closed but with verbal stimuli she would open her eyes and I had to ask her multiple time to continue to keep them open. Pupils are 5 mm, equal and reactive. Primary gaze are midline. She is able to look to the right and left without nystagmus. There is no obvious facial asymmetry. No dysarthria. Was able to stick her tongue out. Motor: Strength: She is moving bilateral upper extremities above gravity. She is moving her left ankle dorsiflexion/plantarflextion antigravity and minimally moving the right toes (per her significant other her right lower extremity is baseline weak from her hx of MS). Sensory: Normal to touch throughout. Plantar responses are extensor bilaterally but on further it was on the right. - Labs CBC & Chem 7: 12/17/20 07:13 12/19/20 07:40 Labs: Abnormal Lab Results - Last 24 Hours (Table) 12/18/20 12/18/20 12/19/20 Range/Units 17:05 20:18 05:59 Sodium (137-145) mmol/L BUN (7-17) mg/dL Glucose (74-99) mg/dL POC Glucose (mg/dL) 123 H 155 H 134 H (75-99) mg/dL Calcium (8.4-10.2) mg/dL 12/19/20 Range/Units 07:40 Sodium 136 L (137-145) mmol/L BUN 28 H (7-17) mg/dL Glucose 148 H (74-99) mg/dL POC Glucose (mg/dL) (75-99) mg/dL Calcium 7.6 L (8.4-10.2) mg/dL Microbiology - Last 24 Hours (Table) 12/14/20 10:11 Blood Culture - Preliminary Blood No Growth after 96 hours 12/14/20 10:11 Blood Culture - Preliminary Blood No Growth after 96 hours Assessment and Plan Assessment: Acute Multiple Sclerosis exacerbation (with active plaque in the left basal ganglia. Spoke with reading radiologist and feels it seems enhancing). Altered mental status due to metabolic encephalopathy (presented with hyponatremia and hypogllycemia, hyperkalemia) and component of possibly septic encephalopathy. Also MS exacerbation can cause change in mentation but I would favor more metabolic. Not seizure after two days of 2.5 hours of EEG.---mentation is improving Also has component of delerium Hyponatremia (presented with Na of 119---> 136)---improving Episode of hypoglycemia (presented with POC glucose of 48 and repeated was 52)--resolved Leukocytosis--->resolved History of multiple sclerosis History of hypertension A. fib with RVR back in sinus rhythm Elevated troponin History of breast cancer with previous mastectomy status post chemotherapy Plan: * TSH is 3.04 which is normal. * AST of 85 and ALT of 78 on 12/15/2020. * Ammonia level is less than 9. * U/A was negative for UTI. Blood culture are positive for staphy epidermis but otherwise no growth. * Prolonged 2-1/2 hour EEG: It is reported as limited study, abnormal prolonged 2 1/2 hours video EEG. No clinical or electrographic seizures were recorded. No epileptiform activity was present. The diffuse theta range slowing mentioned above is not epileptiform in nature. In combination with a slow background, the finding indicates mild diffuse cerebral dysfunction which may in part due to medication effect. * Folate level is 22.4 which is normal. Vitamin B12 is 919 which is considered normal. * MRI the brain is reported as marketed multiple scattered area of abnormal increased signal intensity in the white matter of both cerebral hemisphere and within the corpus callosum consistent with a provided history of demyelinating disease. There is suggestion of an active plaque in the left basal ganglia based on diffusion weighted images. I spoke with the reading radiologist Dr. Scott and he stated that the the lesion enhances with contrast. I personally myself could not review images because of problem with the system. * Repeat EEG 2.5 hours is ordered for today: Preliminary results are there are no focal slowing, no seizures, epileptiform discharges. The background slowing is mild to moderate encephalopathy. Pending final report. * Solu-Medrol 500 mg every 12 hours for 3-5 days. received her first done on 12/18/20 at 20:24 * Unlikely meningoecephalitis (seems atypical since following commands). Lumbar puncture is ordered and I spoke with Dr. Whitney and he agrees does not seem meningoencephalitis and will discontinue Lumbar puncture. * Patient is on Rebif for her multiple sclerosis and her significant other as well her neurologist (per the patient significant other) are adamant of continuing in the hospital even though she is on Solu-Medrol * Vitamin B6 level pending * Physical therapy and occupation therapy are consulted. * Primary team ordered Acetylcholine receptor antibody concerning for Myasthenia Gravis. I am not sure why the patient keep on closing her eyes and how long she is doing it for. If not improvement consider repetitive nerve conduction study to rule out Ocular Myasthenia? * Infection disease is on board * Nephrology team is on board. * Will defer the rest of medical management to the primary team. The plan is discussed with the patient's significant other (Vinicio) and her nurse. Corey Davidson MD Neuro-Hospitalist Time with Patient: Less than 30
[2020-12-19 16:41] LABS: Glucose,Whole Blood 205 mg/dL (75-99)
--- NOTE | 2020-12-19 17:50 | PN ---
PROGRESS NOTE DATE OF SERVICE: 12/19/2020. REASON FOR FOLLOWUP: 1. Positive blood culture. 2. Fever, question of infection. INTERVAL HISTORY: Patient has been afebrile. The patient is currently breathing comfortably. The patient denies any headache. No chest pain, shortness of breath, cough, no abdominal pain or diarrhea. PHYSICAL EXAMINATION: Blood pressure 131/82 with a pulse of 99, temperature 98. She is 95% on room air. General description is a middle-aged female lying in bed in no distress. Respiratory system: Unlabored breathing, clear to auscultation anteriorly. Heart S1, S2. Regular rate and rhythm. ABDOMEN: Soft, no tenderness. LABS: Blood culture repeat has been negative so far. BUN of 28, creatinine 0.66, CRP 0.6. DIAGNOSTIC IMPRESSION AND PLAN: 1. Patient with positive blood culture likely contamination. Repeat blood culture negative, off vancomycin. 2. Patient with episode of fever. The patient did have elevated white count on admission. However, the patient did have extensive workup and all the cultures have been negative. The patient white count subsequently normalized. No clear focus of infection. Received more than 7 to 8 days of antibiotics. We will discontinue cefepime and monitor the patient closely off antibiotic therapy. Family at the bedside. Questions were answered. MMODL / IJN: [id number] /
[2020-12-19] MEDS: APIXABAN 5 MG TAB PO SCH (20:21)
[2020-12-19 20:55] LABS: Glucose,Whole Blood 159 mg/dL (75-99)
[2020-12-20 06:38] LABS: Glucose,Whole Blood 142 mg/dL (75-99)
[2020-12-20] MEDS: FUROSEMIDE 10 MG/ML 4 ML VIAL IV SCH (07:23)
[2020-12-20] MEDS: CALCIUM CARBONATE 500 MG CHEWABLE PO SCH (07:24)
[2020-12-20] MEDS: APIXABAN 5 MG TAB PO SCH ×2 (07:24→21:04)
[2020-12-20] MEDS: SPIRONOLACTONE 25 MG TAB PO SCH (07:24)
[2020-12-20] MEDS: AMIODARONE 200 MG TAB PO SCH ×2 (07:24→21:04)
[2020-12-20] MEDS: METOPROLOL TARTRATE 25 MG TAB PO SCH ×2 (07:24→21:04)
[2020-12-20] MEDS: ANASTROZOLE 1 MG TAB PO SCH (07:24)
[2020-12-20] MEDS: CHOLECALCIFEROL 25 MCG (1000 IU) TABLET PO SCH (07:24)
[2020-12-20] MEDS: PREGABALIN 50 MG CAP PO SCH ×2 (07:25→21:04)
[2020-12-20 08:06] LABS: ALT 516 U/L (4-34); AST 188 U/L (14-36); African American GFR (CKD) >90 (>60 ml/min/1.73 sqM); Albumin 2.8 g/dL (3.5-5.0); Alkaline Phosphatase 76 U/L (38-126); Anion Gap 5 mmol/L; Basophils % (A) 0 %; Blood Urea Nitrogen 33 mg/dL (7-17); Calcium 7.8 mg/dL (8.4-10.2); Carbon Dioxide 25 mmol/L (22-30); Chloride 106 mmol/L (98-107); Eosinophils % (A) 0 %; Glucose 123 mg/dL (74-99); HCT 30.1 % (34.0-46.0); HGB 10.6 gm/dL (11.4-16.0); Lymphocytes # (A) 0.9 k/uL (1.0-4.8); Lymphocytes % (A) 7 %; MCHC 35.2 g/dL (31.0-37.0); MCV 96.5 fL (80.0-100.0); Mean Platelet Volume 7.5; Monocytes # (A) 0.3 k/uL (0-1.0); Monocytes % (A) 2 %; Neutrophils # (A) 11.1 k/uL (1.3-7.7); Neutrophils % (A) 90 %; Non-African American GFR(CKD) 84 (>60 ml/min/1.73 sqM); Platelet Count 159 k/uL (150-450); Potassium 3.6 mmol/L (3.5-5.1); RBC 3.12 m/uL (3.80-5.40); RDW 15.7 % (11.5-15.5); Sodium 136 mmol/L (137-145); Total Bilirubin 0.7 mg/dL (0.2-1.3); Total Protein 5.1 g/dL (6.3-8.2); WBC 12.4 k/uL (3.8-10.6)
[2020-12-20 11:44] LABS: Glucose,Whole Blood 131 mg/dL (75-99)
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
[2020-12-20 16:53] LABS: Glucose,Whole Blood 142 mg/dL (75-99)
[2020-12-20] MEDS ORDERED: MAGNESIUM HYDROXIDE 2,400 MG/10 ML CUP PO PRN (19:04)
--- NOTE | 2020-12-20 19:06 | P.PN ---
Progress Note - Text Progress Note Date: 12/20/20 Chief Complaint: Patient repeating herself don't shoot me History of presenting complaint: This is a 65-year-old patient, who follows with Dr. Daniel oJhns. Patient has known multiple sclerosis being followed by , neurologist. At her baseline patient uses a wheelchair. Has urine urgency. Also has known hypertension. Patient for last one half months as a sacral lumbar and buttock bedsores stage II. Patient's versus dressing of the same. Patient also has a left arm brace. Patient is incontinent of urine. Patient's appetite is good. No fever no chills. Patient is brought in the hospital by the as she gets repeating at home and wanted, don't shoot me inverted, please don't let me go:. Patient has been resistant to care in the ICU. She will don't answer any questions fully. Patient's at the bedside is very attentive to her. Patient had hyponatremia and hyperkalemia. In the ER and given dextrose, Regular Insulin, sodium bicarbonate, Kayexalate. Patient was initially given hypertonic saline. Admitted with: Hyponatremia, hyperkalemia, acute kidney injury, delirium. Also felt to have acute multiple sclerosis exacerbation. EEG negative. Also prolonged EEG negative. infection workup came back to be negative. Antibiotics discontinued. Today: Laying in bed. at the bedside. Oral intake fair. No delirium. Answering questions. Breathing stable. Review of systems: Was done for constitutional, cardiovascular, GI, pulmonary. relevant finding as above Active Medications Hydrocodone Bitart/Acetaminophen (Hydrocodone/Apap 5-325mg 1 Each Tab) 1 each PO BID PRN PRN Reason: Pain Amiodarone HCl (Amiodarone 200 Mg Tab) 200 mg PO BID [facility] Stop: 12/22/20 07:00 Last Admin: 12/20/20 07:24 Dose: 200 mg Documented by: Amiodarone HCl (Amiodarone 200 Mg Tab) 200 mg PO DAILY [facility] Anastrozole (Anastrozole 1 Mg Tab) 1 mg PO DAILY [facility] Last Admin: 12/20/20 07:24 Dose: 1 mg Documented by: Apixaban (Apixaban 5 Mg Tab) 5 mg PO BID [facility] Last Admin: 12/20/20 07:24 Dose: 5 mg Documented by: Baclofen (Baclofen 10 Mg Tab) 10 mg PO BID PRN PRN Reason: Muscle Spasm Calcium Carbonate/Glycine (Calcium Carbonate 500 Mg Chewable) 500 mg PO DAILY [facility] Last Admin: 12/20/20 07:24 Dose: 500 mg Documented by: Cholecalciferol (Cholecalciferol 25 Mcg (1000 Iu) Tablet) 75 mcg PO DAILY [facility] Last Admin: 12/20/20 07:24 Dose: 75 mcg Documented by: Furosemide (Furosemide 10 Mg/Ml 4 Ml Vial) 40 mg IV DAILY [facility] Last Admin: 12/20/20 07:23 Dose: 40 mg Documented by: Methylprednisolone Sodium Succinate 500 mg/ Sodium Chloride 100 mls @ 100 mls/hr IVPB Q12HR [facility] Stop: 12/22/20 09:59 Last Admin: 12/20/20 08:13 Dose: 100 mls/hr Documented by: Metoprolol Tartrate (Metoprolol Tartrate 25 Mg Tab) 25 mg PO BID [facility] Last Admin: 12/20/20 07:24 Dose: 25 mg Documented by: Miscellaneous Information (Potassium Replacement Protocol 1 Each Misc) 1 each MISCELLANE DAILY PRN; Protocol PRN Reason: Per Protocol Naloxone HCl (Naloxone 0.4 Mg/Ml 1 Ml Vial) 0.2 mg IV Q2M PRN PRN Reason: Opioid Reversal Fosamax (Alendronate () 70mg Tablet) 1 each PO Mo [facility] Pregabalin (Pregabalin 50 Mg Cap) 50 mg PO BID [facility] Last Admin: 12/20/20 07:25 Dose: 50 mg Documented by: Spironolactone (Spironolactone 25 Mg Tab) 50 mg PO DAILY [facility] Last Admin: 12/20/20 07:24 Dose: 50 mg Documented by: Past medical history to include: Hypertension, migraine, multiple sclerosis, lower extremity edema, does use a wheelchair, brace on the left arm, urinary urgency, history of breast cancer Social history: Patient stopped smoking in 1992. No alcohol. . Physical examination: VITAL SIGNS: 98, 84, 18, 124/81, 94% room air GENERAL: , reclining in bed, comfortable EYES: Pupils equal. Conjunctiva normal. HEENT: External appearance of nose and ears normal, oral cavity grossly normal. NECK: JVD not raised; masses not palpable. HEART: First and second heart sounds are normal; some edema. LUNGS: Respiratory rate normal; decreased breath sounds. ABDOMEN: Soft, nontender, liver spleen not palpable, no masses palpable. PSYCH: AO 3, mood affect minimally anxious. Patient knows that she is at bedside in hospital, knows the month the year the president. NEUROLOGICAL: [Cranial nerves grossly intact; decreased power in the limbs. INVESTIGATIONS, reviewed in the clinical context: December 20: WBC 12.4 hemoglobin 10.6 platelets 159 potassium 3.6 creatinine 0.76 AST 188 ALT 516 albumin 2.8 December 20: EEG: Negative for epileptiform activity. WBC 26.1 hemoglobin 15.2 platelets 258 Sodium 125 potassium 6.3 bun 68 creatinine 1.05 Troponin I 0.877 TSH 3.0 EKG tracing personally reviewed by me-normal sinus rhythm, interventricular ventricular block Chest x-ray film personally reviewed by me-lung paredes clear Computed tomography scan brain: Nothing acute UA 3+ glucose Previous labs: 11/08/2020: Potassium 3.9 creatinine 0.9 Assessment and plan: -Significant hypervolemia hyponatremia.-Improved IV Lasix. Follow labs -Severe hyperkalemia due to acute kidney injury. Potassium supplements and NSAIDs.-Improved Given IV fluids, insulin, bicarbonate. Repeat labs Possible adrenal insufficiency. Given IV hydrocortisone. Currently on IV Solu- Medrol for MS exacerbation -Acute kidney injury, prerenal-corrected IV fluids -Acute delirium likely multifactorial/from electrolyte abnormalities.-Improved -Chronic multiple sclerosis. Acute exacerbation. Patient follows with Dr. Dupree Patient on IV Solu-Medrol being followed by neurology -Chronic medical debility At the baseline uses a wheelchair -Chronic urinary incontinence Villatoro catheter -Multiple wounds on the sacrum, lumbar area, buttocks for about a half months Follow with wound care -Positive blood cultures with Staphylococcus epidermidis, likely contaminant vancomycin-discontinued Care was discussed with the patient has been out of the bedside. Continue current medications. Follow with neurology.
--- NOTE | 2020-12-20 19:35 | PN ---
PROGRESS NOTE DATE OF SERVICE: 12/20/2020 REASON FOR FOLLOWUP: 1. Positive blood culture. 2. Fever . INTERVAL HISTORY: Patient is currently afebrile. The patient is more awake and alert. She is breathing comfortably. Denies any chest pain. No shortness of breath or cough. No nausea, vomiting, abdominal pain or diarrhea. PHYSICAL EXAMINATION: Blood pressure 124/81, pulse of 84, temperature 98.8. She is 94% on room air. General description is a middle-aged female lying in bed in no distress. Respiratory system: Unlabored breathing, clear to auscultation anteriorly. Heart S1, S2. Regular rate and rhythm. ABDOMEN: Soft, no tenderness. LABS: Hemoglobin 10.1, white count 12.5, BUN of 33, creatinine 0.76. Blood culture repeat has been negative. DIAGNOSTIC IMPRESSION AND PLAN: 1. Patient with positive Staph epi, likely contaminant. Blood culture negative. No need for vancomycin. 2. Patient elevated white count more likely steroid related and monitor closely as no evidence of any active infection. MMODL / IJN: [id number] /
[2020-12-20 20:49] LABS: Glucose,Whole Blood 169 mg/dL (75-99)
[2020-12-21 06:27] LABS: Glucose,Whole Blood 136 mg/dL (75-99)
[2020-12-21] MEDS ORDERED: FOSAMAX 70 MG PO SCH (06:30)
[2020-12-21] MEDS ORDERED: REBIF PO SCH (09:00)
[2020-12-21] MEDS: SPIRONOLACTONE 25 MG TAB PO SCH (09:15)
[2020-12-21] MEDS: CALCIUM CARBONATE 500 MG CHEWABLE PO SCH (09:15)
[2020-12-21] MEDS: ANASTROZOLE 1 MG TAB PO SCH (09:15)
[2020-12-21] MEDS: APIXABAN 5 MG TAB PO SCH ×2 (09:15→20:45)
[2020-12-21] MEDS: AMIODARONE 200 MG TAB PO SCH ×2 (09:15→20:45)
[2020-12-21] MEDS: METOPROLOL TARTRATE 25 MG TAB PO SCH ×2 (09:15→20:45)
[2020-12-21] MEDS: CHOLECALCIFEROL 25 MCG (1000 IU) TABLET PO SCH (09:15)
[2020-12-21] MEDS: PREGABALIN 50 MG CAP PO SCH ×2 (09:15→20:45)
[2020-12-21] MEDS: FUROSEMIDE 10 MG/ML 4 ML VIAL IV SCH (09:15)
[2020-12-21 12:01] LABS: Glucose,Whole Blood 136 mg/dL (75-99)
--- NOTE | 2020-12-21 12:22 | P.PN ---
Subjective Progress Note Date: 12/21/20 Patient was seen for a follow-up. Initial consultation performed by Dr. Bushra Dill. Subsequently patient was seen by Dr. Corye Davidson. Patient at this time states that she came because of inability to pass stools. Patient has history of multiple sclerosis, came with altered mental status, hypoglycemia with blood sugar running around 40-50. Sodium was low 119. Patient has been diagnosed with toxic metabolic encephalopathy. Patient has had tremor. EEG showed no epileptiform activity. It only showed mild diffuse theta slowing consistent with encephalopathy. Patient has been keeping her eyes cl osed. Acetylcholine receptor antibodies are negative. Patient is currently on Solu-Medrol 500 mg IV PB twice a day, that was started on 12/18/2020. Patient states she has history of MS since 1997. She follows up with Dr Garcia at [facility]. Patient says that she is currently taking Rebif for a long time. She has previously tried Tecfidera and Tysabri as well. Patient currently lives with significant other. She says that she tries to walk, but she appears to be wheelchair bound at this time. She has hypertension but denies diabetes. No history of stroke. She has history of breast cancer stage I. Patient has smoked 8 cigarettes per day from age [age] when she quit. Patient denies any new worsening of her symptoms. Objective - Vital Signs Vital signs: Vital Signs Temp 99.4 F 12/21/20 09:03 Pulse 91 12/21/20 09:03 Resp 18 12/21/20 09:03 BP 120/69 12/21/20 09:03 Pulse Ox 94 L 12/21/20 09:03 Intake & Output 12/20/20 12/21/20 12/21/20 18:59 06:59 18:59 Intake Total 840 480 Output Total 1525 500 Balance -685 -20 Weight 85.5 kg Intake: Oral 840 480 Output: Urine 1525 500 Other: Voiding Method Indwelling Catheter Indwelling Catheter Indwelling Catheter - Exam On examination patient is an elderly female, in no distress. She is alert and awake. She keeps her eyes closed, but does open her eyes whenever conversation is initiated. Her pupils are round and reacting, visual paredes are full on confrontation, extraocular muscles intact with no nystagmus. Face is symmetric, tongue protrudes to the midline. Palatal elevation is normal, hearing and shoulder shrug normal, facial sensation normal. On muscle strength testing (right/left) deltoid 2-3/2-3, biceps 4/4, triceps 4+/4, tile layer supervisor 4-/3+. In the lower limbs, patient can only wiggle her toes, ankle dorsiflexion is 0/trac e. Reflexes are diminished, and plantars are upgoing bilaterally. Sensory touch is equal. Cerebellar functions cannot be assessed. Tone is increased. - Labs CBC & Chem 7: 12/20/20 07:12 12/20/20 07:12 Labs: Abnormal Lab Results - Last 24 Hours (Table) 12/20/20 12/20/20 12/20/20 Range/Units 11:41 16:50 20:03 POC Glucose (mg/dL) 131 H 142 H (75-99) mg/dL Crossmatch See Detail 12/20/20 12/21/20 Range/Units 20:34 06:00 POC Glucose (mg/dL) 169 H 136 H (75-99) mg/dL Crossmatch Microbiology - Last 24 Hours (Table) 12/14/20 10:11 Blood Culture - Final Blood No Growth after 144 hours 12/14/20 10:11 Blood Culture - Final Blood No Growth after 144 hours Assessment and Plan Assessment: Acute Multiple Sclerosis exacerbation Altered mental status due to metabolic encephalopathy (presented with hyponatremia and hypogllycemia, hyperkalemia) and component of possibly septic encephalopathy. Also MS exacerbation can cause change in mentation but I would favor more metabolic. Also has component of delerium Hyponatremia (presented with Na of 119---> 136)---improving Episode of hypoglycemia (presented with POC glucose of 48 and repeated was 52)--resolved Leukocytosis--->resolved History of multiple sclerosis History of hypertension New onset A. fib with RVR, now back in sinus rhythm Elevated troponin History of breast cancer with previous mastectomy status post chemotherapy Plan: * Continue Solu-Medrol 500 mg IV PB twice a day for a total of 5 days. Thereafter stop Solu-Medrol, no need for oral taper, as per patient. * Patient's liver functions are worsening. AST 188, ALT 516. Would hold off on Rebif for now. * Ammonia level is less than 9. * U/A was negative for UTI. Blood culture are positive for staphy epidermis but otherwise no growth. Per ID, probably skin contaminant. * Initial Prolonged 2-1/2 hour EEG 12/17/2020: It is reported as limited study, abnormal prolonged 2 1/2 hours video EEG. No clinical or electrographic seizures were recorded. No epileptiform activity was present. The diffuse theta range slowing mentioned above is not epileptiform in nature. In combination with a slow background, the finding indicates mild diffuse cerebral dysfunction which may in part due to medication effect. * Folate level is 22.4 which is normal. Vitamin B12 is 919 which is considered normal. * MRI the brain is reported as marked multiple scattered area of abnormal increased signal intensity in the white matter of both cerebral hemisphere and within the corpus callosum consistent with a provided history of demyelinating disease. There is suggestion of an active plaque in the left basal ganglia based on diffusion weighted images. Some concern about ischemia based upon hypointensity on ADC map. Patient has new onset atrial fibrillation, therefore subacute CVA also a possibility. Patient now on Apixaban 5 mg twice a day. * Repeat 2.5 hours EEG 12/18/2020 showed no focal slowing, no seizures, or epileptiform discharges. The background slowing is mild to moderate encephalopathy. * Vitamin B6 level pending * Hemoglobin A1c 5.6, lipid panel with cholesterol 203, LDL 115, HDL 58 and triglycerides 148 on 10/18/2020. * Physical therapy and occupation therapy are consulted. * Acetylcholine receptor antibody came back negative. Doubt myasthenia. May consider repetitive nerve conduction study to rule out Ocular Myasthenia? as outpatient. * Infection disease is on board, patient off antibiotics. * Nephrology team is on board. Renal functions improving. * Will defer the rest of medical management to the primary team.
--- NOTE | 2020-12-21 12:36 | PN ---
PROGRESS NOTE DATE OF SERVICE: 12/21/2020 REASON FOR FOLLOWUP: 1. Positive blood culture. 2. Elevated white count. INTERVAL HISTORY: The patient is currently afebrile. The patient is breathing comfortably. She is more awake and alert. The patient denies having any headache. No chest pain. No shortness of breath or cough. No nausea, no vomiting. No abdominal pain, no diarrhea. PHYSICAL EXAMINATION: Her blood pressure is 120/69 with pulse of 91, temperature 99.4. She is 94% on room air. General description is a middle-aged female lying in bed in no distress. RESPIRATORY SYSTEM: Unlabored breathing, clear to auscultation anteriorly. HEART: S1, S2. Regular rate and rhythm. ABDOMEN: Soft, no tenderness. LABS: No new labs have been obtained today. Blood culture repeat has been negative so far. DIAGNOSTIC IMPRESSION AND PLAN: 1. Patient with a positive blood culture likely skin contaminant. Repeat blood culture negative. 2. Patient with elevated white count more likely steroid related. No evidence of any worsening infection. Monitor closely. Continue with supportive care. MMODL / IJN: [id number] /
[2020-12-21] MEDS ORDERED: REBIF SQ SCH (13:00)
[2020-12-21 16:50] LABS: Glucose,Whole Blood 160 mg/dL (75-99)
[2020-12-21 20:18] LABS: Glucose,Whole Blood 157 mg/dL (75-99)
--- NOTE | 2020-12-21 23:27 | PN ---
PROGRESS NOTE This patient has a brainstem lesion, MS exacerbation, acute, for which she is responding to IV Solu-Medrol. She is able to open both her eyes at this time. Remains on 500 mg methylprednisone q.12 hours. She remains on her blood pressure medications, COPD, CHF medications, atrial fibrillation medicines, arrhythmia medicines. NEUROLOGIC: Cranial nerves are intact. She has generalized weakness 3/5 x4 extremities. She is able to open her eyes and give appropriate talk today. ASSESSMENT: 1. MS exacerbation of acute nature. 2. History of atrial fibrillation. 3. Chronic obstructive pulmonary disease. 4. Asthma. 5. Diastolic heart failure. Prognosis is extremely guarded. Continue with high-dose IV steroids. She is responding to this. Wait for neurology recommendations. MMODL / IJN: [id number] /
[2020-12-22 06:13] LABS: Glucose,Whole Blood 135 mg/dL (75-99)
[2020-12-22 08:57] LABS: Anisocytosis Slight; Basophils % (A) 0 %; Eosinophils % (A) 0 %; HCT 32.4 % (34.0-46.0); HGB 11.1 gm/dL (11.4-16.0); Lymphocytes # (A) 0.7 k/uL (1.0-4.8); Lymphocytes % (A) 6 %; MCH 33.5 pg (25.0-35.0); MCHC 34.3 g/dL (31.0-37.0); MCV 97.7 fL (80.0-100.0); Macrocytosis Slight; Mean Platelet Volume 7.8; Monocytes # (A) 0.3 k/uL (0-1.0); Monocytes % (A) 3 %; Neutrophils # (A) 9.2 k/uL (1.3-7.7); Neutrophils % (A) 90 %; Platelet Count 182 k/uL (150-450); RBC 3.31 m/uL (3.80-5.40); RDW 16.3 % (11.5-15.5); WBC 10.2 k/uL (3.8-10.6)
[2020-12-22] MEDS ORDERED: APIXABAN 5 MG TAB PO SCH (09:00)
[2020-12-22 09:11] LABS: ALT 406 U/L (4-34); AST 95 U/L (14-36); African American GFR (CKD) >90 (>60 ml/min/1.73 sqM); Albumin 2.8 g/dL (3.5-5.0); Alkaline Phosphatase 68 U/L (38-126); Anion Gap 4 mmol/L; Blood Urea Nitrogen 48 mg/dL (7-17); Calcium 8.1 mg/dL (8.4-10.2); Carbon Dioxide 28 mmol/L (22-30); Chloride 102 mmol/L (98-107); Glucose 113 mg/dL (74-99); Non-African American GFR(CKD) 81 (>60 ml/min/1.73 sqM); Potassium 4.4 mmol/L (3.5-5.1); Sodium 134 mmol/L (137-145); Total Bilirubin 0.6 mg/dL (0.2-1.3)
[2020-12-22] MEDS: CALCIUM CARBONATE 500 MG CHEWABLE PO SCH (09:46)
[2020-12-22] MEDS: CHOLECALCIFEROL 25 MCG (1000 IU) TABLET PO SCH (09:46)
[2020-12-22] MEDS: METOPROLOL TARTRATE 25 MG TAB PO SCH ×2 (09:47→20:29)
[2020-12-22] MEDS: APIXABAN 5 MG TAB PO SCH ×2 (09:47→20:29)
[2020-12-22] MEDS: FUROSEMIDE 10 MG/ML 4 ML VIAL IV SCH (09:47)
[2020-12-22] MEDS: SPIRONOLACTONE 25 MG TAB PO SCH (09:49)
[2020-12-22] MEDS: PREGABALIN 50 MG CAP PO SCH ×2 (09:49→20:29)
[2020-12-22] MEDS: ANASTROZOLE 1 MG TAB PO SCH (09:50)
[2020-12-22 11:52] LABS: Glucose,Whole Blood 107 mg/dL (75-99)
--- NOTE | 2020-12-22 13:55 | PN ---
PROGRESS NOTE DATE OF SERVICE: 12/22/2020 REASON FOR FOLLOWUP: 1. Positive blood culture. 2. Elevated white count. INTERVAL HISTORY: The patient is afebrile. The patient is feeling better. Breathing comfortably. The patient denies having any chest pain, shortness of breath or cough. No nausea, no vomiting. No abdominal pain or diarrhea. PHYSICAL EXAMINATION: Blood pressure is 131/84 with a pulse of 87, temperature is 98.7. She is 91% on room air. General description is a middle-aged female lying in bed in no distress. RESPIRATORY SYSTEM: Unlabored breathing, clear to auscultation anteriorly. HEART: S1, S2. Regular rate and rhythm. ABDOMEN: Soft, no tenderness. LABS: Hemoglobin is 11.1, white count 10.2, BUN of 48, creatinine 0.79. Blood culture repeat has been negative. DIAGNOSTIC IMPRESSION AND PLAN: 1. Patient with positive blood culture, Staph epi, likely skin contaminant. Repeat blood culture has been negative. No need for vancomycin. 2. Elevated white count, steroid effect. White count has normalized. No focus of infection. The patient monitored closely off antibiotic therapy. MMODL / IJN: [id number] /
--- NOTE | 2020-12-22 13:56 | P.PN ---
Subjective Progress Note Date: 12/22/20 12/22/2020: Patient was seen for a follow-up. Patient's boyfriend Mr. Mooney was also present. He believes patient is opening her eyes more. He also mentions that she has been getting recurrent exacerbation since last 60 days. After first exacerbation in October 2020, patient was hospitalized and was given 3 days course of steroids. Few days after that admission, patient received wallace virus vaccination from [employer] and after that she became worse. She had 2 more exacerbations including the current one for which she was hospitalized 11 days ago. Patient's boyfriend states that she used to walk with a walker and would walk sideways hanging on to the counter. However in the last 2 months she has not walked at all. With the current exacerbation, patient had low sodium, low glucose and UTI. 12/21/2020 Patient was seen for a follow-up. Initial consultation performed by Dr. Bushra Dill. Subsequently patient was seen by Dr. Corey Davidson. Patient at this time states that she came because of inability to pass stools. Patient has history of multiple sclerosis, came with altered mental status, hypoglycemia with blood sugar running around 40-50. Sodium was low 119. Silvestre small has been diagnosed with toxic metabolic encephalopathy. Patient has had tremor. EEG showed no epileptiform activity. It only showed mild diffuse theta slowing consistent with encephalopathy. Patient has been keeping her eyes closed. Acetylcholine receptor antibodies are negative. Patient is currently on Solu-Medrol 500 mg IV PB twice a day, that was started on 12/18/2020. Patient states she has history of MS since 1997. She follows up with Dr Garcia at [facility]. Patient says that she is currently taking Rebif for a long time. She has previously tried Tecfidera and Tysabri as well. Patient currently lives with significant other. She says that she tries to walk, but she appears to be wheelchair bound at this time. She has hypertension but denies diabetes. No history of stroke. She has history of breast cancer stage I. Patient has smoked 8 cigarettes per day from age [age] when she quit. Patient denies any new worsening of her symptoms. Objective - Vital Signs Vital signs: Vital Signs Temp 99.1 F 12/22/20 13:20 Pulse 78 12/22/20 13:20 Resp 16 12/22/20 13:20 BP 122/68 12/22/20 13:20 Pulse Ox 92 L 12/22/20 13:20 Intake & Output 12/21/20 12/22/20 12/22/20 18:59 06:59 18:59 Intake Total 1200 120 240 Output Total 1275 400 402 Balance -75 -280 -162 Weight 85.5 kg 82 kg Intake: Oral 1200 120 240 Output: Urine 1275 400 400 Straight 400 Stool 2 Other: Voiding Method Indwelling Catheter Indwelling Catheter Indwelling Catheter - Exam On examination patient is an elderly female, in no distress. She is alert and awake. She keeps her eyes closed, but does open her eyes whenever conversation is initiated. Her pupils are round and reacting, visual paredes are full on confrontation, extraocular muscles intact with no nystagmus. Face is symmetric, tongue protrudes to the midline. Palatal elevation is normal, hearing and shoulder shrug normal, facial sensation normal. On muscle strength testing (right/left) deltoid 2-3/2-3, biceps 4/4, triceps 4+/4, gerontology aide 4-/3+. In the lower limbs, patient can only wiggle her toes, ankle dorsiflexion is 0/trace. Reflexes are diminished, and plantars are upgoing bilaterally. Sensory touch is equal. Cerebellar functions cannot be assessed. Tone is increased. - Labs CBC & Chem 7: 12/22/20 07:34 12/22/20 07:34 Labs: Abnormal Lab Results - Last 24 Hours (Table) 12/21/20 12/21/20 12/22/20 Range/Units 16:48 20:15 06:10 RBC (3.80-5.40) m/uL Hgb (11.4-16.0) gm/dL Hct (34.0-46.0) % RDW (11.5-15.5) % Neutrophils # (1.3-7.7) k/uL Lymphocytes # (1.0-4.8) k/uL Sodium (137-145) mmol/L BUN (7-17) mg/dL Glucose (74-99) mg/dL POC Glucose (mg/dL) 160 H 157 H 135 H (75-99) mg/dL Calcium (8.4-10.2) mg/dL AST (14-36) U/L ALT (4-34) U/L Total Protein (6.3-8.2) g/dL Albumin (3.5-5.0) g/dL 12/22/20 12/22/20 12/22/20 Range/Units 07:34 07:34 11:50 RBC 3.31 L (3.80-5.40) m/uL Hgb 11.1 L (11.4-16.0) gm/dL Hct 32.4 L (34.0-46.0) % RDW 16.3 H (11.5-15.5) % Neutrophils # 9.2 H (1.3-7.7) k/uL Lymphocytes # 0.7 L (1.0-4.8) k/uL Sodium 134 L (137-145) mmol/L BUN 48 H (7-17) mg/dL Glucose 113 H (74-99) mg/dL POC Glucose (mg/dL) 107 H (75-99) mg/dL Calcium 8.1 L (8.4-10.2) mg/dL AST 95 H (14-36) U/L ALT 406 H (4-34) U/L Total Protein 5.0 L (6.3-8.2) g/dL Albumin 2.8 L (3.5-5.0) g/dL Assessment and Plan Assessment: Acute Multiple Sclerosis exacerbation Altered mental status due to metabolic encephalopathy/delirium (presented with hyponatremia and hypogllycemia, hyperkalemia) and component of possibly septic encephalopathy. Also MS exacerbation can cause change in mentation but I would favor more metabolic. Hyponatremia (presented with Na of 119---> 136)---improving, now 134 today Episode of hypoglycemia (presented with POC glucose of 48 and repeated was 52)--resolved Elevated LFTs, unclear cause. Leukocytosis--->resolved History of multiple sclerosis History of hypertension New onset A. fib with RVR, now back in sinus rhythm Elevated troponin History of breast cancer with previous mastectomy status post chemotherapy Plan: * Continue Solu-Medrol 500 mg IV PB twice a day for a total of 5 days. Thereafter stop Solu-Medrol, no need for oral taper, as per patient. * Patient's liver functions are worsening. AST 188, ALT 516. Would hold off on Rebif for now. Informed patient's boyfriend, who agreed. * Ammonia level is less than 9. * U/A was negative for UTI. Blood culture are positive for staphy epidermis but otherwise no growth. Per ID, probably skin contaminant. * Initial Prolonged 2-1/2 hour EEG 12/17/2020: It is reported as limited study, abnormal prolonged 2 1/2 hours video EEG. No clinical or electrographic seizures were recorded. No epileptiform activity was present. The diffuse theta range slowing mentioned above is not epileptiform in nature. In combination with a slow background, the finding indicates mild diffuse cerebral dysfunction which may in part due to medication effect. * Folate level is 22.4 which is normal. Vitamin B12 is 919 which is considered normal. * MRI the brain is reported as marked multiple scattered area of abnormal increased signal intensity in the white matter of both cerebral hemisphere and within the corpus callosum consistent with a provided history of demyelinating disease. There is suggestion of an active plaque in the left basal ganglia based on diffusion weighted images. Some concern about ischemia based upon hypointensity on ADC map. Patient has new onset atrial fibrillation, therefore subacute CVA also a possibility. Patient now on Apixaban 5 mg twice a day. * Repeat 2.5 hours EEG 12/18/2020 showed no focal slowing, no seizures, or epileptiform discharges. The background slowing is mild to moderate encephalopathy. * Vitamin B6 7 (5-50). We will start B6 replacement. * Hemoglobin A1c 5.6, lipid panel with cholesterol 203, LDL 115, HDL 58 and triglycerides 148 on 10/18/2020. * Physical therapy and occupation therapy are consulted. * Acetylcholine receptor antibody came back negative. Doubt myasthenia. May c onsider repetitive nerve conduction study to rule out Ocular Myasthenia? as outpatient. * Infection disease is on board, patient off antibiotics. * Nephrology team is on board. Renal functions improving. * Will defer the rest of medical management to the primary team.
[2020-12-22] MEDS: AMIODARONE 200 MG TAB PO SCH (16:17)
[2020-12-22] MEDS: PYRIDOXINE 50 MG TAB PO SCH (16:17)
[2020-12-22 16:53] LABS: Glucose,Whole Blood 165 mg/dL (75-99)
[2020-12-22 20:37] LABS: Glucose,Whole Blood 146 mg/dL (75-99)
--- NOTE | 2020-12-23 03:00 | PN ---
PROGRESS NOTE 65-year-old white female with acute encephalopathy with an MS exacerbation with acute lesion in the basal ganglia, active MS lesion. Remains on IV steroids. The patient is improving from medical standpoint. Cardiovascular S1, S2. Lungs clear. GI soft. Hematology negative Homans. Neurologic: Eyes are open. She is answering questions appropriately. She is still very weak. Apparently she is eating fairly well. ASSESSMENT AND PLAN: 1. MS exacerbation. 2. Chronic obstructive pulmonary disease. 3. Chronic renal disease. 4. Multiple sclerosis exacerbation. 5. Prognosis guarded. 6. Continue with IV steroids. 7. PT, OT. 8. Neurology recommendations. MMODL / IJN: [id number] /
[2020-12-23 06:09] LABS: Glucose,Whole Blood 132 mg/dL (75-99)
[2020-12-23] MEDS: CHOLECALCIFEROL 25 MCG (1000 IU) TABLET PO SCH (09:49)
[2020-12-23] MEDS: PYRIDOXINE 50 MG TAB PO SCH (09:49)
[2020-12-23] MEDS: AMIODARONE 200 MG TAB PO SCH (09:49)
[2020-12-23] MEDS: SPIRONOLACTONE 25 MG TAB PO SCH (09:49)
[2020-12-23] MEDS: PREGABALIN 50 MG CAP PO SCH ×2 (09:49→19:56)
[2020-12-23] MEDS: METOPROLOL TARTRATE 25 MG TAB PO SCH ×2 (09:49→19:56)
[2020-12-23] MEDS: APIXABAN 5 MG TAB PO SCH ×2 (09:49→19:57)
[2020-12-23] MEDS: CALCIUM CARBONATE 500 MG CHEWABLE PO SCH (09:49)
[2020-12-23] MEDS: ANASTROZOLE 1 MG TAB PO SCH (09:49)
[2020-12-23] MEDS: FUROSEMIDE 10 MG/ML 4 ML VIAL IV SCH (09:49)
[2020-12-23 11:49] LABS: Glucose,Whole Blood 115 mg/dL (75-99)
[2020-12-23 17:07] LABS: Glucose,Whole Blood 100 mg/dL (75-99)
--- NOTE | 2020-12-23 17:12 | PN ---
PROGRESS NOTE DATE OF SERVICE: 12/23/2020 REASON FOR FOLLOWUP: 1. Positive blood culture. 2. Leukocytosis. INTERVAL HISTORY: The patient is currently afebrile. The patient is breathing comfortably. The patient denies having any chest pain or shortness of breath or cough. She is currently on room air. No nausea, no vomiting. No abdominal pain or diarrhea. PHYSICAL EXAMINATION: Blood pressure 135/92 with a pulse of 83, temperature 98.1. She is 97% on 2 L nasal cannula. General description is a middle-aged female lying in bed in no distress. RESPIRATORY SYSTEM: Unlabored breathing. Clear to auscultation anteriorly. HEART: S1, S2. Regular rate and rhythm. ABDOMEN: Soft. No tenderness. LABS: No new labs have been obtained today. Repeat blood cultures remain negative. DIAGNOSTIC IMPRESSION AND PLAN: 1. Patient with a positive blood culture which was more likely contamination. Repeat blood culture has been negative. No need for further workup for the same. 2. Patient with elevated white count, possibly reactive. White count normalized as of yesterday. Currently with no obvious focus of infection. No need for systemic antibiotic therapy. MMODL / IJN: [id number] /
[2020-12-23 20:05] LABS: Glucose,Whole Blood 146 mg/dL (75-99)
--- NOTE | 2020-12-23 23:58 | PN ---
PROGRESS NOTE The patient is greatly improving with the IV Solu-Medrol she has been getting for 5 days. Her eyes are open. She is eating herself. Giving appropriate answers. Does not want to go to a fdc. Wants home health care to take care of her when she goes home. Steroids have been discontinued. She has positive blood culture, leukocytosis. Currently on room air. Giving appropriate answers. Abdomen is soft. Cardiovascular S1, S2. Musculoskeletal: She is moving both arms. She had a contaminated blood culture. No obvious signs of an infection. She has done within 5 days of steroids. She has greatly improvement with her eating and oral, opening her eyes and moving her arms. She used to walk with a walker, would walk sideways while hanging onto the counter. For the last two months, she has not walked at all. The patient did have some low sodium, low glucose and UTI for which we had been treated with antibiotics. Vital signs stable. Afebrile. CARDIOVASCULAR: S1, S2. Lungs clear. ASSESSMENT: 1. Acute multiple sclerosis exacerbation. 2. Altered mental status secondary to her multiple sclerosis exacerbation. 3. Metabolic encephalopathy. 4. Hyponatremia. 5. Hyperglycemia. 6. Hyperkalemia. 7. Septic encephalopathy, doubt that, most likely it is a multiple sclerosis exacerbation. 8. Hyponatremia. 9. Hypoglycemia. 10.Elevated LFTs. 11.New onset atrial fibrillation with RVR, now in sinus rhythm. 12.Elevated troponins. 13.History of breast cancer. She has low levels of B6. Start B6 replacement. Physical therapy, occupational therapy. Myasthenia gravis negative. She had negative acetylcholine receptor antibodies. Possibly ocular myasthenia as an outpatient. Infectious Disease. Off antibiotics. is improving. New onset atrial fibrillation. She is on 5 mg b.i.d. EEG shows no seizures. Continue current treatment. Prognosis guarded. MMODL / IJN: [id number] /
[2020-12-24 06:09] LABS: Glucose,Whole Blood 95 mg/dL (75-99)
[2020-12-24 08:14] LABS: Anisocytosis Slight; Basophils % (A) 0 %; Eosinophils # (A) 0.1 k/uL (0-0.7); Eosinophils % (A) 1 %; HCT 35.7 % (34.0-46.0); HGB 12.2 gm/dL (11.4-16.0); Lymphocytes # (A) 1.2 k/uL (1.0-4.8); Lymphocytes % (A) 13 %; MCH 33.6 pg (25.0-35.0); MCHC 34.2 g/dL (31.0-37.0); MCV 98.3 fL (80.0-100.0); Macrocytosis Slight; Mean Platelet Volume 7.8; Monocytes # (A) 0.2 k/uL (0-1.0); Monocytes % (A) 2 %; Neutrophils # (A) 7.9 k/uL (1.3-7.7); Neutrophils % (A) 84 %; Platelet Count 165 k/uL (150-450); RBC 3.63 m/uL (3.80-5.40); RDW 16.2 % (11.5-15.5); WBC 9.4 k/uL (3.8-10.6)
[2020-12-24 08:26] LABS: AST 73 U/L (14-36); African American GFR (CKD) >90 (>60 ml/min/1.73 sqM); Albumin 2.9 g/dL (3.5-5.0); Alkaline Phosphatase 67 U/L (38-126); Anion Gap 7 mmol/L; Bilirubin,Unconjugated 0.5 mg/dL (0.0-1.1); Blood Urea Nitrogen 37 mg/dL (7-17); Calcium 8.3 mg/dL (8.4-10.2); Carbon Dioxide 26 mmol/L (22-30); Chloride 99 mmol/L (98-107); Glucose 137 mg/dL (74-99); Non-African American GFR(CKD) >90 (>60 ml/min/1.73 sqM); Potassium 3.9 mmol/L (3.5-5.1); Sodium 132 mmol/L (137-145); Total Bilirubin 0.5 mg/dL (0.2-1.3)
[2020-12-24 08:39] LABS: ALT 250 U/L (4-34)
--- NOTE | 2020-12-24 09:33 | P.PN ---
Subjective Progress Note Date: 12/23/20 12/23/2020: Patient laying comfortably in the bed. Patient is more avidly opening her eyes. Offers no complaints. 12/22/2020: Patient was seen for a follow-up. Patient's boyfriend Mr. Mooney was also present. He believes patient is opening her eyes more. He also mentions that she has been getting recurrent exacerbation since last 60 days. After first exacerbation in October 2020, patient was hospitalized and was given 3 days course of steroids. Few days after that admission, patient received wallace virus vaccination from [facility] and after that she became worse. She had 2 more exacerbations including the current one for which she was hospitalized 11 days ago. Patient's boyfriend states that she used to walk with a walker and would walk sideways hanging on to the counter. However in the last 2 months she has not walked at all. With the current exacerbation, patient had low sodium, low glucose and UTI. 12/21/2020 Patient was seen for a follow-up. Initial consultation performed by Dr. Bushra Dill. Subsequently patient was seen by Dr. Corey Davidson. Patient at this time states that she came because of inability to pass stools. Patient has history of multiple sclerosis, came with altered mental status, hypoglycemia with blood sugar running around 40-50. Sodium was low 119. Patient has been diagnosed with toxic metabolic encephalopathy. Patient has had tremor. EEG showed no epileptiform activity. It only showed mild diffuse theta slowing consistent with encephalopathy. Patient has been keeping her eyes closed. Acetylcholine receptor antibodies are negative. Patient is currently on Solu-Medrol 500 mg IV PB twice a day, that was started on 12/18/2020. Patient states she has history of MS since 1997. She follows up with Dr Garcia at [facility]. Patient says that she is currently taking Rebif for a long time. She has previously tried Tecfidera and Tysabri as well. Patient currently lives with significant other. She says that she tries to walk, but she appears to be wheelchair bound at this time. She has hypertension but denies diabetes. No history of stroke. She has history of breast cancer stage I. Patient has smoked 8 cigarettes per day from age [age] when she quit. Patient denies any new worsening of her symptoms. Objective - Vital Signs Vital signs: Vital Signs Temp 99.4 F 12/23/20 16:26 Pulse 90 12/23/20 16:26 Resp 16 12/23/20 16:26 BP 127/85 12/23/20 16:26 Pulse Ox 95 12/23/20 16:26 Intake & Output 12/23/20 12/23/20 12/24/20 06:59 18:59 06:59 Intake Total 10 430 240 Output Total 350 602 350 Balance -340 -172 -110 Weight 81 kg Intake: IV 10 0.9 10 Oral 430 240 Output: Urine 350 600 350 Stool 2 Other: Voiding Method Incontinent Incontinent External Catheter External Catheter # Voids 1 - Exam On examination patient is an elderly female, in no distress. She is alert and awake. She keeps her eyes closed, but does open her eyes whenever conversation is initiated. She is in fact opening her eyes more easily and widely. Her pupils are round and reacting, visual paredes are full on confron tation, extraocular muscles intact with no nystagmus. Face is symmetric, tongue protrudes to the midline. Palatal elevation is normal, hearing and shoulder shrug normal, facial sensation normal. On muscle strength testing (right/left) deltoid 2-3/2-3, biceps 4/ 3+, triceps 4+/4, child psychologist 4-/3+. In the lower limbs, patient can only wiggle her toes, ankle dorsiflexion is 0/trace. Reflexes are diminished, and plantars are upgoing bilaterally. Sensory touch is equal. Cerebellar functions cannot be assessed. Tone is increased. - Labs CBC & Chem 7: 12/24/20 08:00 12/24/20 08:00 Labs: Abnormal Lab Results - Last 24 Hours (Table) 12/22/20 12/23/20 12/23/20 Range/Units 20:35 06:07 11:47 POC Glucose (mg/dL) 146 H 132 H 115 H (75-99) mg/dL 12/23/20 12/23/20 Range/Units 17:06 20:01 POC Glucose (mg/dL) 100 H 146 H (75-99) mg/dL Assessment and Plan Assessment: Acute Multiple Sclerosis exacerbation Altered mental status due to metabolic encephalopathy/delirium (presented with hyponatremia and hypogllycemia, hyperkalemia) and component of possibly septic encephalopathy. Also MS exacerbation can cause change in mentation but I would favor more metabolic. Hyponatremia (presented with Na of 119---> 136)---improving, now 134 12/22/2020. We will recheck in a.m. Episode of hypoglycemia (presented with POC glucose of 48 and repeated was 52)--resolved Elevated LFTs, unclear cause. Leukocytosis--->resolved Hypertension New onset A. fib with RVR, now back in sinus rhythm Elevated troponin History of breast cancer with previous mastectomy status post chemotherapy Plan: * Continue Solu-Medrol 500 mg IV PB twice a day for a total of 5 days. Patient has completed a course of Solu-Medrol. * Patient's liver functions are worsening. AST 188, ALT 516. Would hold off on Rebif for now. Informed patient's boyfriend, who agreed. We will recheck hepatic panel in the morning. * Ammonia level is less than 9. * U/A was negative for UTI. Blood culture are positive for staphy epidermis but otherwise no growth. Per ID, probably skin contaminant. * Initial Prolonged 2-1/2 hour EEG 12/17/2020: It is reported as limited study, abnormal prolonged 2 1/2 hours video EEG. No clinical or electrographic seizures were recorded. No epileptiform activity was present. The diffuse theta range slowing mentioned above is not epileptiform in nature. In combination with a slow background, the finding indicates mild diffuse cerebral dysfunction which may in part due to medication effect. * Folate level is 22.4 which is normal. Vitamin B12 is 919 which is considered normal. * MRI the brain is reported as marked multiple scattered area of abnormal increased signal intensity in the white matter of both cerebral hemisphere and within the corpus callosum consistent with a provided history of demyelinating disease. There is suggestion of an active plaque in the left basal ganglia based on diffusion weighted images. Some concern about ischemia based upon hypointensity on ADC map. Patient has new onset atrial fibrillation, therefore subacute CVA also a possibility. Patient now on Apixaban 5 mg twice a day for atrial fibrillation. * Repeat 2.5 hours EEG 12/18/2020 showed no focal slowing, no seizures, or epileptiform discharges. The background slowing is mild to moderate encephalopathy. * Vitamin B6 7 (5-50). We will start B6 replacement. * Hemoglobin A1c 5.6, lipid panel with cholesterol 203, LDL 115, HDL 58 and triglycerides 148 on 10/18/2020. * Physical therapy and occupation therapy are consulted. * Acetylcholine receptor antibody came back negative. Doubt myasthenia. May consider repetitive nerve conduction study to rule out Ocular Myasthenia? as outpatient. * Infection disease is on board, patient off antibiotics. * Nephrology team is on board. Renal functions improving. * Will defer the rest of medical management to the primary team. * Neurologically clear. Patient to follow up with the neurologist to discuss about resuming Rebif vs starting Tecfidera. * We will sign off.
[2020-12-24] MEDS: FUROSEMIDE 10 MG/ML 4 ML VIAL IV SCH (09:49)
[2020-12-24] MEDS: METOPROLOL TARTRATE 25 MG TAB PO SCH ×2 (09:50→21:39)
[2020-12-24] MEDS: CHOLECALCIFEROL 25 MCG (1000 IU) TABLET PO SCH (09:50)
[2020-12-24] MEDS: PREGABALIN 50 MG CAP PO SCH ×2 (09:50→21:39)
[2020-12-24] MEDS: ANASTROZOLE 1 MG TAB PO SCH (09:50)
[2020-12-24] MEDS: SPIRONOLACTONE 25 MG TAB PO SCH (09:50)
[2020-12-24] MEDS: APIXABAN 5 MG TAB PO SCH ×2 (09:50→21:38)
[2020-12-24] MEDS: CALCIUM CARBONATE 500 MG CHEWABLE PO SCH (09:50)
[2020-12-24] MEDS: AMIODARONE 200 MG TAB PO SCH (09:50)
[2020-12-24] MEDS: PYRIDOXINE 50 MG TAB PO SCH (09:57)
[2020-12-24 13:12] VITALS: BMI 30.2
--- NOTE | 2020-12-24 17:23 | PN ---
PROGRESS NOTE DATE OF SERVICE: 12/24/2020 REASON FOR FOLLOWUP: Positive blood culture and leukocytosis. INTERVAL HISTORY: The patient is afebrile. The patient is breathing comfortably. The patient denies having any chest pain or shortness of breath or cough. No nausea, no vomiting, no abdominal pain or diarrhea. PHYSICAL EXAMINATION: Blood pressure 130/73 with pulse of 88, temperature 97.6. She is 92% on room air. General description is a middle-aged female lying in bed in no distress. RESPIRATORY SYSTEM: Unlabored breathing. Clear to auscultation anteriorly. HEART: S1, S2. Regular rate and rhythm. ABDOMEN: Soft. No tenderness. LABS: Hemoglobin is 12.2, white count 9.4, BUN of 36, creatinine 0.63. Blood culture repeat has been negative. DIAGNOSTIC IMPRESSION AND PLAN: 1. Patient with a positive blood culture with Staphylococcus epidermidis, likely contaminant. Repeat blood culture has been negative so far. 2. Leukocytosis, possibly reactive. White count has normalized and she is currently being monitored closely off antibiotic therapy. Continue with supportive care. MMODL / IJN: [id number] /
[2020-12-25 00:42] VITALS: RESP 18
--- NOTE | 2020-12-25 03:55 | PN ---
PROGRESS NOTE 65-year-old white female who is still remains very off kilter with her responses. She is able to open her eyes and will try to hold a controller, but unable to get the buttons. She is confused with speaking, but she does have some movement of her arms. Talked to the neurologist about continue with some steroids for MS flare. She probably needs longer either a tapering dose of steroids or more IV steroids. She appears to be little bit more off balance compared to yesterday. Cardiovascular S1-S2. Lungs clear. Musculoskeletal: Hands are fumbling with controller. She appears to be little bit confused. PROGNOSIS: Guarded. Continue with possible steroids for MS flare. Continue other home medicines. Prognosis guarded. MMODL / IJN: [id number] /
[2020-12-25 08:48] LABS: Albumin 3.2 g/dL (3.5-5.0); Bilirubin,Unconjugated 0.6 mg/dL (0.0-1.1); Total Bilirubin 0.5 mg/dL (0.2-1.3); Total Protein 5.5 g/dL (6.3-8.2)
[2020-12-25] MEDS: CALCIUM CARBONATE 500 MG CHEWABLE PO SCH (08:59)
[2020-12-25] MEDS: AMIODARONE 200 MG TAB PO SCH (08:59)
[2020-12-25] MEDS: PYRIDOXINE 50 MG TAB PO SCH (08:59)
[2020-12-25] MEDS: METOPROLOL TARTRATE 25 MG TAB PO SCH (08:59)
[2020-12-25] MEDS: ANASTROZOLE 1 MG TAB PO SCH (08:59)
[2020-12-25] MEDS: FUROSEMIDE 10 MG/ML 4 ML VIAL IV SCH (08:59)
[2020-12-25] MEDS: APIXABAN 5 MG TAB PO SCH (08:59)
[2020-12-25] MEDS: SPIRONOLACTONE 25 MG TAB PO SCH (08:59)
[2020-12-25] MEDS: CHOLECALCIFEROL 25 MCG (1000 IU) TABLET PO SCH (08:59)
[2020-12-25] MEDS: PREGABALIN 50 MG CAP PO SCH (08:59)
[2020-12-25] MEDS ORDERED: predniSONE 20 MG TAB PO SCH (14:00)
--- NOTE | 2020-12-25 14:35 | DS ---
DISCHARGE SUMMARY A 65-year-old white female admitted with altered mental status, UTI and possible non STEMI, multiple sclerosis exacerbation with multiple new lesions including brainstem lesion which was treated, hyponatremia, hyperkalemia secondary to severe dehydration. Her electrolytes and metabolic encephalopathy were treated. She was given IV steroids 500 mg q.12 hours for 5 days. Her multiple sclerosis exacerbation and mental status improved to the point where she was able to open her eyes and move her arms, but still could not hold objects very well. We are going to send her home on a prednisone taper to [facility] on the [place] and physical therapy consult. Discharge medication list includes: 1. Tylenol 650 q.6 p.r.n. 2. Arimidex 1 mg daily. 3. Baclofen 10 b.i.d. p.r.n. 4. Lyrica 50 b.i.d. 5. [place] 5/325 b.i.d. 6. Eliquis 5 mg b.i.d. 7. Cordarone 200 mg daily. 8. Tums 500 mg daily. 9. Vitamin D 1000 international units daily. 10.Lasix 40 mg p.o. daily. 11.Prednisone 60 mg for 5 days, 50 mg for 5 days, then 40 mg for 5 days, 30 mg for 5 days, 20 mg for 5 days and then stay on 10 mg daily after that. Follow up with Dr. Daniel Johns. Continue PT, OT in the long term. Diet as tolerated. Ambulate as tolerated. Prognosis guarded. MMODL / IJN: [id number] /
--- NOTE | 2020-12-25 15:41 | PN ---
PROGRESS NOTE DATE OF SERVICE: 12/25/2020. REASON FOR FOLLOWUP: 1. Positive blood culture. 2. Elevated white count. INTERVAL HISTORY: The patient did spike a low grade fever of 100.1 this morning. The patient is afebrile since then. The patient denies having any chest pain or shortness of breath or cough. Currently on room air. No abdominal pain or diarrhea. PHYSICAL EXAMINATION: Blood pressure 97/72 with a pulse of 98, temperature 99.6. She is 98% on 2 L nasal cannula. General description is a middle-aged female lying in bed in no distress. RESPIRATORY SYSTEM: Unlabored breathing with decreased breath sounds at the bases. No wheeze. HEART: S1, S2. Regular rate and rhythm. ABDOMEN: Soft, no tenderness. EXTREMITIES: No edema of feet. LABS: Hemoglobin is 12.2, white count 9.4, BUN of 37, creatinine 0.63. DIAGNOSTIC IMPRESSION AND PLAN: 1. Patient with a positive blood culture with Staph epi likely contaminant. Repeat blood culture negative. Off vancomycin. 2. Elevated white count subsequently normalized possible drug related. 3. Patient did have a low-grade fever. Currently no obvious focus of infection. We will monitor closely. spike any further fever . Blood cultures will be obtained and antibiotic adjusted if needed. MMODL / IJN: [id number] /
[2020-12-25 18:16] VITALS: BP 106/74; PULSE 76; TEMP 98.6
--- NOTE | 2020-12-25 20:48 | DS ---
DISCHARGE SUMMARY ADDENDUM TO DISCHARGE SUMMARY: [facility] Tecfidera 120 mg p.o. b.i.d. for the first week, then after the first week go to 240 mg p.o. b.i.d., and keep on that same dose until the patient goes home. Generic for Tecfidera is dimethyl. MMODL / IJN: [id number] /
[2020-12-26] MEDS ORDERED: FUROSEMIDE 40 MG TAB PO SCH (09:00)
== END 2020-12-25 19:03 | DRG 58 ==
LOC: EC 15:47 → 2SICU 17:52 → 3SCARD 12-15 11:50
PROVIDERS: ADMIT Family Medicine; ATTEND Family Medicine
PROC: 06HM33Z Insertion of Infusion Device into Right Femoral Vein, Percutaneous Approach (ICD-10-PCS; principal; 2020-12-14 11:35)
PROC: 05HC33Z Insertion of Infusion Device into Left Basilic Vein, Percutaneous Approach (ICD-10-PCS; 2020-12-14 11:35)
DX: G35 Multiple sclerosis (principal); G92 Toxic encephalopathy; J18.9 Pneumonia, unspecified organism; I21.4 Non-ST elevation (NSTEMI) myocardial infarction; E87.1 Hypo-osmolality and hyponatremia; F05 Delirium due to known physiological condition; I50.30 Unspecified diastolic (congestive) heart failure; I31.3 Pericardial effusion (noninflammatory); J44.0 Chronic obstructive pulmonary disease with (acute) lower respiratory infection; N17.9 Acute kidney failure, unspecified; I13.0 Hypertensive heart and chronic kidney disease with heart failure and stage 1 through stage 4 chronic kidney disease, or unspecified chronic kidney disease; N39.0 Urinary tract infection, site not specified; E27.40 Unspecified adrenocortical insufficiency; E87.5 Hyperkalemia; D64.9 Anemia, unspecified; E16.2 Hypoglycemia, unspecified; E86.1 Hypovolemia; E87.6 Hypokalemia; Z20.822 Contact with and (suspected) exposure to COVID-19; I48.0 Paroxysmal atrial fibrillation; L89.152 Pressure ulcer of sacral region, stage 2; N18.9 Chronic kidney disease, unspecified; I73.9 Peripheral vascular disease, unspecified; R32 Unspecified urinary incontinence; T50.2X5A Adverse effect of carbonic-anhydrase inhibitors, benzothiadiazides and other diuretics, initial encounter; R53.81 Other malaise; Z79.83 Long term (current) use of bisphosphonates; D72.829 Elevated white blood cell count, unspecified; G47.00 Insomnia, unspecified; T38.0X5A Adverse effect of glucocorticoids and synthetic analogues, initial encounter; G24.9 Dystonia, unspecified; E66.9 Obesity, unspecified; R45.1 Restlessness and agitation; G43.909 Migraine, unspecified, not intractable, without status migrainosus; Z79.1 Long term (current) use of non-steroidal anti-inflammatories (NSAID); Z79.811 Long term (current) use of aromatase inhibitors; Z79.01 Long term (current) use of anticoagulants; Z79.2 Long term (current) use of antibiotics; Z79.899 Other long term (current) drug therapy; Z85.3 Personal history of malignant neoplasm of breast; Z86.73 Personal history of transient ischemic attack (TIA), and cerebral infarction without residual deficits; Z78.1 Physical restraint status; Z87.891 Personal history of nicotine dependence; Z68.30 Body mass index [BMI] 30.0-30.9, adult; Z99.3 Dependence on wheelchair; Z83.2 Family history of diseases of the blood and blood-forming organs and certain disorders involving the immune mechanism; Z80.9 Family history of malignant neoplasm, unspecified; Z90.11 Acquired absence of right breast and nipple; Z92.21 Personal history of antineoplastic chemotherapy
CPT/HCPCS: 36410; 36415; 70450; 70553; 71045; 71046; 74177; 76937; 80048; 80053; 80076; 80202; 80306; 81001; 82140; 82533; 82550; 82565; 82570; 82607; 82746; 83519; 83615; 83735; 83930; 83935; 84145; 84207; 84295; 84300; 84443; 84484; 85025; 85610; 85730; 86140; 86920; 87040; 87635; 93005; 93306; 93923; 94644; 94760; 95713; 96374; 96375; 99285